=== PATIENT | female | born 1940 | race Caucasian/White ===

== ENCOUNTER 2016-04-17 17:07 | Emergency (ER) | payer OTHER ==
[2016-04-17] VITALS (8 sets, daily range): BP systolic 143–165; BP diastolic 73–87; PULSE 90–104; RESP 20–22; TEMP 98.3–99.4; O2SAT 95–97
[~2016-04-17] VITALS: Ht 165.1 cm; Wt 68.7 kg
[~2016-04-17 17:07] MED LIST: ADVA250A INH; AMIT25TA20 PO; GABA800T PO; SYMB160A INH; THEO200T11 PO
[2016-04-17] MEDS ORDERED: SYMB160A INH (17:46)
[2016-04-17] MEDS ORDERED: PRED20 PO (17:46)
[2016-04-17] MEDS ORDERED: AMOX500T PO (17:46)
[2016-04-17] MEDS ORDERED: [UNRECOGNIZED DRUG - OTHER] (17:46)
[2016-04-17] MEDS ORDERED: THEO400T2 PO (17:46)
[2016-04-17] MEDS ORDERED: ADVA100A INH (17:46)
--- NOTE | 2016-04-17 17:59 | PD ---
HPI Chief Complaint: Respiratory Symptoms Time Seen by Provider: 17:36 Travel History International Travel<30 days: No Contact w/Intl Traveler<30days: No Traveled to known affect area: No History of Present Illness HPI Patient 75-year-old female with a history of COPD not on oxygen at home presents to emergency department for cough and congestion for the past 2-3 weeks. Patient states that she went to her primary care physician was placed on Levaquin as well as steroids patient and using her nebulizers at home. She states that it provides some relief but she is still having significant cough and shortness of breath. Patient requests oxygen while in the emergency department and states that she has tried to get oxygen at home before but states she doesn't qualify. Patient states she called her primary care physician and told to come the emergency department. Denies any fever denies any productive cough denies any chest pain abdominal pain nausea vomiting diarrhea. PFSH Past Medical History Asthma: Yes Autoimmune Disease: No Anxiety: Yes Cancer: Yes (RIGHT FOOT) Cardiovascular Problems: Yes (dyslipidemia) High Cholesterol: Yes Chemotherapy: No COPD: Yes Diminished Hearing: No Endocrine: Yes Gastrointestinal Disorders: Yes (HX OF CONSTIPATION, TAKES MIRALAX EVERY OTHER DAY) Genitourinary: Yes ([employer] BLADDER SURGERY) Headaches: Yes Immune Disorder: No Implanted Vascular Access Dvce: No Kidney Stones: Yes (2006) Musculoskeletal: Yes Neurologic: Yes Psychiatric: Yes Reproductive: No Respiratory: Yes Immunizations Current: Yes Radiation Therapy: No Thyroid Disease: Yes Influenza Vaccination: No ?: Not Menopausal: Yes Past Surgical History Endocrine Surgery: Yes (parathyroid surgery) Genitourinary Surgery: Yes (KIDNEY STONES REMOVED 2006) Gynecologic Surgery: Yes ( BLADDER LIFT) Hysterectomy: Yes (COMPLETE) Pacemaker: No Other Surgery: Yes (PARATHYROID SURGERY) Social History Alcohol Use: No Tobacco Use: No Substance Use: No Allergies-Medications (Allergen,Severity, Reaction): Coded Allergies: Contrast Media (Verified Allergy, Unknown, Shortness of Breath, 04/17/16) Uncoded Allergies: unknown antibiotic (Allergy, Severe, Hypotension, 03/18/09) felt like passing out Reported Meds & Prescriptions Reported Meds & Active Scripts Active Proventil Hfa 6.7 GM Inh (Albuterol Sulfate) 90 Mcg/Act Aer 1 Puff INH Q4H PRN Hydrocodone/Homatropine 5-1.5 mg/5Ml (Hydrocodone W/ Homatropine) 1 Syp Syp 5 Ml PO BID PRN Reported [Nebulizer Treatments] Amoxicillin 500 Mg Tab 500 Mg PO BID Prednisone 20 Mg Tab 40 Mg PO DAILY Theophylline ER 24 HR (Theophylline) 400 Mg Tab 400 Mg PO DAILY Symbicort Inh (Budesonide/Formoterol Fumarate) 160-4.5 Mcg/Act Aero 2 Puff INH Q12HR Advair Diskus Inh (Fluticasone-Salmeterol Inh) 100-50 Mcg/Blist Aer 1 Puff INH BID Rinse mouth after use. Review of Systems Except as stated in HPI: all other systems reviewed are Neg Physical Exam Narrative GENERAL: Well-developed well-nourished no apparent distress SKIN: Warm and dry. HEAD: Atraumatic. Normocephalic. EYES: Pupils equal and round. No scleral icterus. No injection or drainage. ENT: No nasal bleeding or discharge. Mucous membranes pink and moist. NECK: Trachea midline. No JVD. CARDIOVASCULAR: Regular rate and rhythm. No murmur appreciated. RESPIRATORY: No accessory muscle use. Expiratory and expiratory wheezes and rhonchi. Breath sounds equal bilaterally. Good air entry bilaterally, patient has significant kyphosis. Minimally tachypneic but speaking in full sentences. GASTROINTESTINAL: Abdomen soft, non-tender, nondistended. Hepatic and splenic margins not palpable. MUSCULOSKELETAL: No obvious deformities. No clubbing. No cyanosis. No edema. NEUROLOGICAL: Awake and alert. No obvious cranial nerve deficits. Motor grossly within normal limits. Normal speech. PSYCHIATRIC: Appropriate mood and affect; insight and judgment normal. Data Data Last Documented VS Vital Signs Date Time Temp Pulse Resp B/P Pulse Ox O2 Delivery O2 Flow Rate FiO2 04/17/16 19:51 92 20 97 04/17/16 19:36 143/78 Room Air 04/17/16 17:51 98.3 Orders Electrocardiogram (04/17/16 18:01) Complete Blood Count With Diff (04/17/16 18:01) Comprehensive Metabolic Panel (04/17/16 18:01) Magnesium (Mg) (04/17/16 18:01) Prothrombin Time / Inr (Pt) (04/17/16 18:01) Act Partial Throm Time (Ptt) (04/17/16 18:01) Troponin I (04/17/16 18:01) Ecg Monitoring (04/17/16 18:01) Bilateral Bp Monitoring (04/17/16 18:01) Iv Access Insert/Monitor (04/17/16 18:01) Oximetry (04/17/16 18:01) Oxygen Administration (04/17/16 18:01) Sodium Chloride 0.9% Flush (Ns Flush) (04/17/16 18:15) Chest, Pa & Lat (04/17/16 18:01) Albuterol-Ipratropium Neb (Duoneb Neb) (04/17/16 18:15) Labs Laboratory Tests Test 04/17/16 18:05 White Blood Count 8.6 TH/MM3 Red Blood Count 4.38 MIL/MM3 Hemoglobin 12.5 GM/DL Hematocrit 36.3 % Mean Corpuscular Volume 83.0 FL Mean Corpuscular Hemoglobin 28.5 PG Mean Corpuscular Hemoglobin 34.4 % Concent Red Cell Distribution Width 14.3 % Platelet Count 219 TH/MM3 Mean Platelet Volume 8.4 FL Neutrophils (%) (Auto) 88.3 % Lymphocytes (%) (Auto) 7.7 % Monocytes (%) (Auto) 3.8 % Eosinophils (%) (Auto) 0.1 % Basophils (%) (Auto) 0.1 % Neutrophils # (Auto) 7.6 TH/MM3 Lymphocytes # (Auto) 0.7 TH/MM3 Monocytes # (Auto) 0.3 TH/MM3 Eosinophils # (Auto) 0.0 TH/MM3 Basophils # (Auto) 0.0 TH/MM3 CBC Comment DIFF FINAL Differential Comment Prothrombin Time 10.0 SEC Prothromb Time International 0.9 RATIO Ratio Activated Partial 25.4 SEC Thromboplast Time Sodium Level 144 MEQ/L Potassium Level 4.2 MEQ/L Chloride Level 108 MEQ/L Carbon Dioxide Level 28.0 MEQ/L Anion Gap 8 MEQ/L Blood Urea Nitrogen 13 MG/DL Creatinine 0.72 MG/DL Estimat Glomerular Filtration 79 ML/MIN Rate Random Glucose 142 MG/DL Calcium Level 8.5 MG/DL Magnesium Level 2.1 MG/DL Total Bilirubin 0.2 MG/DL Aspartate Amino Transf 9 U/L (AST/SGOT) Alanine Aminotransferase 16 U/L (ALT/SGPT) Alkaline Phosphatase 68 U/L Troponin I LESS THAN 0.02 NG/ML Total Protein 6.8 GM/DL Albumin 3.2 GM/DL [facility] Medical Decision Making Medical Screen Exam Complete: Yes Emergency Medical Condition: Yes Interpretation(s) EKG shows normal sinus rhythm at a rate of 88 normal axis and normal R-wave progression. No concerning ST T changes intervals within normal limits. This normal EKG. Differential Diagnosis ACS unlikely, CT unlikely, bronchitis, pneumonia, COPD, CHF unlikely. Narrative Course Patient was remembers [place], she was given DuoNeb treatments in the ER. Chest x -ray shows significant COPD changes without acute infiltrate or effusion. Labs are reassuring. Patient feeling better after DuoNeb treatments. Discussed with patient her likely diagnosis of bronchitis and could consider a prolonged course for her. She is maintain saturations greater than 96% on room air while in the emergency department. No indication further workup or admission at this time. Discussed with her return to ED criteria follow-up with a primary care physician. She is provided a refill for her Proventil inhaler. Diagnosis Primary Impression: Bronchitis Scripts Albuterol 6.7 GM Inh (Proventil Hfa 6.7 GM Inh)90 Mcg/Act Aer1 Puff INH Q4H PRN (SHORTNESS OF BREATH) #1 INHALER Ref 0 Prov:Leighton Hunt MD 04/17/16 Hydrocodone W/ Homatropine (Hydrocodone/Homatropine 5-1.5 mg/5Ml)1 Syp Syp5 Ml PO BID PRN (COUGH) #100 ML Ref 0 Prov:Leighton Hunt MD 04/17/16 Disposition: 01 DISCHARGE HOME Condition: Stable Leighton Hunt MD Apr 17, 2016 17:59
[2016-04-17] MEDS ORDERED: SODIUM CHLORIDE 0.9% FLUSH 5 ML FLUSH IVF PRN (18:15)
[2016-04-17] MEDS ORDERED: RESP: ALBUTEROL 2.5 MG/IPRATROPIUM 0.5 MG NEB (SCH) NEB ONE (18:15)
[2016-04-17 18:16] LABS: AUTOMATED NEUTROPHIL # 7.6 TH/MM3 (1.8-7.7); BASOPHIL % 0.1 % (0.0-2.0); EOSINOPHIL % 0.1 % (0.0-4.0); HEMATOCRIT 36.3 % (35.0-46.0); HEMO FLAGS DIFF FINAL; LYMPH % 7.7 % (9.0-44.0); LYMPHOCYTE # 0.7 TH/MM3 (1.0-4.8); MEAN CORPUSCULAR HEMOGLOBIN 28.5 PG (27.0-34.0); MEAN CORPUSCULAR HGB CONC 34.4 % (32.0-36.0); MONO % 3.8 % (0.0-8.0); NEUT % 88.3 % (16.0-70.0); PLATELET COUNT 219 TH/MM3 (150-450); RED BLOOD COUNT 4.38 MIL/MM3 (4.00-5.30); RED CELL DISTRIBUTION WIDTH 14.3 % (11.6-17.2); WHITE BLOOD COUNT 8.6 TH/MM3 (4.0-11.0)
[2016-04-17 18:29] LABS: CHLORIDE 108 MEQ/L (98-107); POTASSIUM 4.2 MEQ/L (3.5-5.1); SODIUM (NA) 144 MEQ/L (136-145)
[2016-04-17 18:32] LABS: ANION GAP 8 MEQ/L (5-15)
[2016-04-17 18:33] LABS: BLOOD UREA NITROGEN 13 MG/DL (7-18); MAGNESIUM 2.1 MG/DL (1.5-2.5)
[2016-04-17 18:35] LABS: ALT (GPT) 16 U/L (10-53)
[2016-04-17 18:36] LABS: AST (GOT) 9 U/L (15-37); GLOMERULAR FILTRATION RATE 79 ML/MIN (>89)
[2016-04-17 18:37] LABS: TOTAL BILIRUBIN ADULT 0.2 MG/DL (0.2-1.0)
[2016-04-17 18:38] LABS: ALKALINE PHOSPHATASE 68 U/L (45-117); APTT (PATIENT) 25.4 SEC (24.3-30.1); INTERNATIONAL NORMALIZED RATIO 0.9 RATIO
--- NOTE | 2016-04-17 18:53 | RADHPO ---
EXAM DATE/TIME: 04/17/2016 18:36 [facility] COMPARISON: CHEST SINGLE AP, November 17, 2013, 9:37. INDICATIONS : Chest pain MEDICAL HISTORY : Renal calculi. Asthma SURGICAL HISTORY : Parathyriod ENCOUNTER: Initial ACUITY: 1 day PAIN SCORE: 5/10 LOCATION: Bilateral chest FINDINGS: PA and lateral views of the chest demonstrate the lungs to be symmetrically aerated without evidence of mass, infiltrate or effusion mild streaky scarring or atelectasis is noted in the perihilar region s. The cardiomediastinal contours are unremarkable. There is a mild scoliosis. There is diffuse oste openia. There is a mild to moderate compression fracture deformity in the upper to mid thoracic spine . There are multiple surgical clips in the thoracic inlet. CONCLUSION: 1. Mild atelectasis and/or scarring. 2. No acute cardiac pulmonary disease. William Becker MD on April 17, 2016 at 18:50 Board Certified Radiologist. This report was verified electronically.
[2016-04-17] MEDS ORDERED: HYDR5SYP10 PO (19:29)
[2016-04-17] MEDS ORDERED: ALBU6.7H INH (19:29)
--- NOTE | 2016-04-18 14:06 | EKG ---
Date Performed: 04/17/2016 Time Performed: 18:03:58 PTAGE: 75 years EKG: Sinus rhythm Since previous tracing, no significant change noted Normal ECG PREVIOUS TRACING : 11/17/2013 09.04 DOCTOR: Bipin Contreras Interpretating Date/Time 04/18/2016 13:59:43
== END 2016-04-17 19:52 | disposition home or self-care (01) ==
LOC: PHED 17:07
DX: J40 Bronchitis, not specified as acute or chronic (principal); J44.9 Chronic obstructive pulmonary disease, unspecified; E78.00 Pure hypercholesterolemia, unspecified; Z87.442 Personal history of urinary calculi; R51 Headache
CPT/HCPCS: 71020; 80053; 83735; 84484; 85025; 85610; 85730; 93005; 94640; 94664

== ENCOUNTER 2016-08-03 17:22 | Inpatient (IN) | payer OTHER, MEDICARE ==
[~2016-08-03] VITALS: Ht 165.1 cm; Wt 70.1 kg
[~2016-08-03 17:22] MED LIST changes: +ADVA100A INH; -ADVA250A INH; +ALBU6.7H INH; -AMIT25TA20 PO; +AMOX500T PO; -GABA800T PO; +HYDR5SYP10 PO; +PRED20 PO; -THEO200T11 PO; +THEO400T2 PO; +[UNRECOGNIZED DRUG - OTHER]
[2016-08-03 17:36] VITALS: BP 142/83; PULSE 86; RESP 16; TEMP 98.2; O2SAT 96
[2016-08-03] MEDS ORDERED: TRAM50TA PO (17:51)
[2016-08-03] MEDS ORDERED: HYDR-3535 PO (17:51)
[2016-08-03 17:58] VITALS: O2SAT 100
--- NOTE | 2016-08-03 17:59 | PD ---
HPI Chief Complaint: Respiratory Symptoms Time Seen by Provider: 17:48 Travel History International Travel<30 days: No Contact w/Intl Traveler<30days: No Traveled to known affect area: No History of Present Illness HPI 75-year-old female complains of coughing and wheezing and shortness of breath. Patient has history of asthma. Patient states that she started having coughing congestion 9 days ago and got progressively worse since then. Patient contacted her physician 3 days ago and was given a Z-Dilip. Patient has been using nebulizer machine at home without success. Patient states that she got progressive shortness of breath despite the medication and nebulizer treatment. Patient denies any headache. Patient denies any fever chills. Patient denies any chest pain. Patient denies abdominal pain. PFSH Past Medical History Asthma: Yes Autoimmune Disease: No Anxiety: Yes Cancer: Yes (RIGHT FOOT) Cardiovascular Problems: Yes (dyslipidemia) High Cholesterol: Yes Chemotherapy: No COPD: Yes Diminished Hearing: No Endocrine: Yes Gastrointestinal Disorders: Yes (HX OF CONSTIPATION, TAKES MIRALAX EVERY OTHER DAY) Genitourinary: Yes ([employer]ESS [employer] BLADDER SURGERY) Headaches: Yes Immune Disorder: No Implanted Vascular Access Dvce: No Kidney Stones: Yes (2006) Musculoskeletal: Yes Neurologic: Yes Psychiatric: Yes Reproductive: No Respiratory: Yes Immunizations Current: Yes Radiation Therapy: No Thyroid Disease: Yes ?: Not Menopausal: Yes Past Surgical History Endocrine Surgery: Yes (parathyroid surgery) Genitourinary Surgery: Yes (KIDNEY STONES REMOVED 2006) Gynecologic Surgery: Yes ( BLADDER LIFT) Hysterectomy: Yes Pacemaker: No Other Surgery: Yes (PARATHYROID SURGERY) Social History Alcohol Use: No Tobacco Use: No Substance Use: No Allergies-Medications (Allergen,Severity, Reaction): Coded Allergies: Contrast Media (Verified Allergy, Unknown, Shortness of Breath, 08/03/16) Reported Meds & Prescriptions Reported Meds & Active Scripts Active Proventil Hfa 6.7 GM Inh (Albuterol Sulfate) 90 Mcg/Act Aer 1 Puff INH Q4H PRN Reported Lortab (Hydrocodone-Acetaminophen) 10-325 Mg Tab 1 Tab PO DAILY Tramadol (Tramadol HCl) 50 Mg Tab 50 Mg PO Q6H [Nebulizer Treatments] Prednisone 20 Mg Tab 40 Mg PO DAILY Advair Diskus Inh (Fluticasone-Salmeterol Inh) 100-50 Mcg/Blist Aer 1 Puff INH BID Rinse mouth after use. Review of Systems General / Constitutional: No: Fever Eyes: No: Visual changes HENT: No: Headaches Cardiovascular: No: Chest Pain or Discomfort Respiratory: Positive: Cough, Shortness of Breath, Wheezing Gastrointestinal: No: Abdominal Pain Genitourinary: No: Dysuria Musculoskeletal: No: Pain Skin: No Rash Neurologic: No: Weakness Psychiatric: No: Depression Endocrine: No: Polydipsia Hematologic/Lymphatic: No: Easy Bruising Physical Exam Narrative GENERAL: Well-nourished, well-developed patient. SKIN: Focused skin assessment warm/dry. HEAD: Normocephalic. EYES: No scleral icterus. No injection or drainage. NECK: Supple, trachea midline. No JVD or lymphadenopathy. CARDIOVASCULAR: Regular rate and rhythm without murmurs, gallops, or rubs. RESPIRATORY: Breath sounds equal bilaterally. No accessory muscle use. Patient has moderate expiratory wheezes bilaterally. Rhonchi at the bases bilaterally. GASTROINTESTINAL: Abdomen soft, non-tender, nondistended. MUSCULOSKELETAL: No cyanosis, or edema. BACK: Nontender without obvious deformity. No CVA tenderness. Neurologic exam normal. Data Data Last Documented VS Vital Signs Date Time Temp Pulse Resp B/P Pulse Ox O2 Delivery O2 Flow Rate FiO2 08/03/16 19:05 127 20 96 Room Air 08/03/16 19:05 172/85 08/03/16 17:36 98.2 Orders Iv Access Insert/Monitor (08/03/16 17:52) Ecg Monitoring (08/03/16 17:52) Oximetry (08/03/16 17:52) Methylprednisolone So Succ Inj (Solumedr (08/03/16 18:00) Albuterol-Ipratropium Neb (Duoneb Neb) (08/03/16 18:00) Chest, Single Ap (08/03/16 17:52) Complete Blood Count With Diff (08/03/16 19:45) Comprehensive Metabolic Panel (08/03/16 19:45) Prothrombin Time / Inr (Pt) (08/03/16 19:45) Act Partial Throm Time (Ptt) (08/03/16 19:45) Urinalysis - C+S If Indicated (08/03/16 19:45) Influenzae A/B Antigen (08/03/16 19:45) Sodium Chlor 0.9% 1000 Ml Inj (Ns 1000 M (08/03/16 19:45) Benzonatate (Tessalon) (08/03/16 20:00) MDM Medical Decision Making Medical Screen Exam Complete: Yes Emergency Medical Condition: Yes Interpretation(s) 1823 PM. Chest x-ray shows no acute cardiopulmonary disease. Differential Diagnosis Differential diagnosis including acute exacerbation asthma, bronchitis, pneumonia, PE, pneumothorax. Narrative Course 75-year-old female with coughing congestion and wheezing and shortness of breath. History of asthma. Albuterol with Atrovent unit dose treatment 3. Solu-Medrol 125 mg IV. 1950 p.m. Reexamination patient has moderate amount of wheezes and still short of breath. Patient will be admitted for treatment. Diagnosis Primary Impression: Acute asthma exacerbation Qualified Code: J45.41 - Moderate persistent asthma with acute exacerbation Admitting Information Admitting Physician Requests: Admit Geo Delgado MD Aug 03, 2016 17:59
[2016-08-03] MEDS ORDERED: methylPREDNISolone SOD SUCC 125 MG/2 ML VIAL IVP ONE (18:00)
[2016-08-03] MEDS: RESP: ALBUTEROL 2.5 MG/IPRATROPIUM 0.5 MG NEB (SCH) INH ×2 (18:01→18:05)
--- NOTE | 2016-08-03 18:17 | RADHPO ---
EXAM DATE/TIME: 08/03/2016 18:01 [facility] COMPARISON: CHEST PA & LAT, April 17, 2016, 18:36. INDICATIONS : Shortness of breath 4 days. MEDICAL HISTORY : Chronic obstructive pulmonary disease. Osteoporosis. Asthma. Dyslipidemia. Renal disease. SURGICAL HISTORY : Hysterectomy. ENCOUNTER: Initial ACUITY: 4 - 6 days PAIN SCORE: 0/10 LOCATION: Bilateral chest FINDINGS: Slight cardiomegaly has not changed. Minimal linear scar is seen in both lung bases. CONCLUSION: No acute cardiopulmonary disease. Юлия Munguia MD on August 03, 2016 at 18:15 Board Certified Radiologist. This report was verified electronically.
[2016-08-03 19:05] VITALS: BP 172/85; PULSE 127; RESP 20; O2SAT 96
[2016-08-03] MEDS ORDERED: SODIUM CHLOR 0.9% 1000 ML INJ 1,000 ML IV SCH (19:45)
[2016-08-03] MEDS ORDERED: CEFEPIME INJ 1,000 MG in SODIUM CHLORIDE 0.9% INJ 100 ML IV ONE (20:00)
[2016-08-03] MEDS ORDERED: DOXYCYCLINE INJ 100 MG in SODIUM CHLORIDE 0.9% INJ 100 ML IV ONE (20:00)
[2016-08-03] MEDS ORDERED: BENZONATATE 100 MG CAP PO ONE (20:00)
[2016-08-03] MEDS ORDERED: NALOXONE HCL 0.4 MG/ML AMP IV PRN (20:15)
[2016-08-03] MEDS ORDERED: SODIUM CHLORIDE 0.9% FLUSH 10 ML FLUSH IV FLUSH PRN (20:15)
[2016-08-03 20:33] LABS: AUTOMATED NEUTROPHIL # 1.7 TH/MM3 (1.8-7.7); BASOPHIL % 0.6 % (0.0-2.0); EOSINOPHIL % 0.1 % (0.0-4.0); HEMATOCRIT 36.4 % (35.0-46.0); HEMO FLAGS DIFF FINAL; LYMPH % 26.5 % (9.0-44.0); LYMPHOCYTE # 0.7 TH/MM3 (1.0-4.8); MEAN CELL VOLUME 84.2 FL (80.0-100.0); MEAN CORPUSCULAR HEMOGLOBIN 27.9 PG (27.0-34.0); MEAN CORPUSCULAR HGB CONC 33.1 % (32.0-36.0); MONO % 10.9 % (0.0-8.0); NEUT % 61.9 % (16.0-70.0); PLATELET COUNT 161 TH/MM3 (150-450); RED BLOOD COUNT 4.33 MIL/MM3 (4.00-5.30); RED CELL DISTRIBUTION WIDTH 13.7 % (11.6-17.2); WHITE BLOOD COUNT 2.7 TH/MM3 (4.0-11.0)
[2016-08-03 20:41] LABS: CHLORIDE 104 MEQ/L (98-107); POTASSIUM 4.1 MEQ/L (3.5-5.1); SODIUM (NA) 142 MEQ/L (136-145)
[2016-08-03 20:44] LABS: ANION GAP 9 MEQ/L (5-15); BICARBONATE 28.9 MEQ/L (21.0-32.0); BLOOD UREA NITROGEN 11 MG/DL (7-18)
[2016-08-03 20:46] LABS: APTT (PATIENT) 28.5 SEC (24.3-30.1); INTERNATIONAL NORMALIZED RATIO 0.9 RATIO; PROTHROMBIN TIME - PATIENT 9.9 SEC (9.8-11.6)
[2016-08-03 20:48] LABS: ALT (GPT) 23 U/L (10-53); AST (GOT) 24 U/L (15-37); GLOMERULAR FILTRATION RATE 101 ML/MIN (>89)
[2016-08-03 20:49] LABS: TOTAL BILIRUBIN ADULT 0.3 MG/DL (0.2-1.0)
[2016-08-03 20:50] LABS: ALKALINE PHOSPHATASE 64 U/L (45-117)
[2016-08-03 21:30] LABS: BLOOD, URINE NEG (NEG); GLUCOSE,URINE NEG (NEG); KETONE, URINE TRACE mg/dL (NEG); NITRITE,URINE NEG (NEG)
[2016-08-03] MEDS: SODIUM CHLORIDE 0.9% FLUSH 10 ML FLUSH IV FLUSH SCH (21:30)
[2016-08-03 21:45] VITALS: BP 137/76; PULSE 102; RESP 20; O2SAT 98
[2016-08-03 21:46] VITALS: O2SAT 95
[2016-08-03] MEDS: RESP: ALBUTEROL 2.5 MG/IPRATROPIUM 0.5 MG NEB (SCH) NEB (21:46)
[2016-08-03 21:48] LABS: SQUAMOUS EPITHELIAL CELL URINE 0-5 /hpf (0-5); URINE COLOR YELLOW (YELLW/STRAW)
[2016-08-03 21:49] LABS: COMMENT (UR) CULT NOT INDICATED; CULTURE IF INDICATED CULT NOT INDICATED; WBC, URINE 0-2 /hpf (0-5)
[2016-08-03 22:06] VITALS: BP 164/96; PULSE 128; RESP 18; TEMP 97.5; O2SAT 96
[2016-08-03] MEDS ORDERED: MELATONIN 5 MG TAB PO ONE (23:00)
[2016-08-03] MEDS: methylPREDNISolone SOD SUCC 40 MG/1 ML VIAL IV PUSH SCH (23:41)
[2016-08-03] MEDS: traMADol HCL 50 MG TAB PO PRN (23:41)
[2016-08-04] VITALS (9 sets, daily range): BP systolic 145–163; BP diastolic 79–90; PULSE 96–103; RESP 20–24; TEMP 96.9–98.2; O2SAT 91–98
[2016-08-04] MEDS: RESP: ALBUTEROL 2.5 MG/IPRATROPIUM 0.5 MG NEB (PRN) NEB ×2 (01:06→10:51)
[2016-08-04] MEDS: MENTHOL LOZENGE BUCCAL PRN ×2 (01:46→07:02)
[2016-08-04] MEDS: RESP: ALBUTEROL 2.5 MG/IPRATROPIUM 0.5 MG NEB (SCH) NEB ×4 (04:02→19:47)
[2016-08-04] MEDS: methylPREDNISolone SOD SUCC 40 MG/1 ML VIAL IV PUSH SCH ×3 (05:15→21:39)
[2016-08-04 06:42] LABS: AUTOMATED NEUTROPHIL # 3.3 TH/MM3 (1.8-7.7); BASOPHIL % 0.1 % (0.0-2.0); EOSINOPHIL % 0.6 % (0.0-4.0); HEMATOCRIT 35.3 % (35.0-46.0); HEMO FLAGS DIFF FINAL; LYMPH % 11.3 % (9.0-44.0); LYMPHOCYTE # 0.4 TH/MM3 (1.0-4.8); MEAN CELL VOLUME 85.5 FL (80.0-100.0); MEAN CORPUSCULAR HGB CONC 32.8 % (32.0-36.0); MONO % 3.8 % (0.0-8.0); NEUT % 84.2 % (16.0-70.0); PLATELET COUNT 148 TH/MM3 (150-450); RED BLOOD COUNT 4.13 MIL/MM3 (4.00-5.30); WHITE BLOOD COUNT 3.8 TH/MM3 (4.0-11.0)
[2016-08-04 06:49] LABS: POTASSIUM 3.5 MEQ/L (3.5-5.1)
[2016-08-04] MEDS: traMADol HCL 50 MG TAB PO PRN ×2 (07:02→14:34)
[2016-08-04] MEDS: BUDESONIDE-FORMOTEROL 160/4.5 MCG INHALER INH SCH ×2 (10:15→20:21)
--- NOTE | 2016-08-04 10:24 | HHI.HP ---
[facility] Service [facility] Primary Care Physician Pilo Alarcon MD Admission Diagnosis acute exacerbation asthma Diagnoses: (1) COPD with exacerbation (2) Acute asthma exacerbation (3) Influenza B (4) Leukopenia Chief Complaint: Shortness of breath and greenish sputum production Travel History International Travel<30 Days: No Contact w/Intl Traveler <30 Da: No Traveled to Known Affected Are: No History of Present Illness 75-year-old female with a history of asthma/COPD presented to the ED for evaluation of worsening symptoms of shortness of breath, cough production along with severe symptoms of chest congestion times several days duration. Patient was diagnosed last week 07/25/16 with upper respiratory infection however not therapy was initiated at a time. Patient reported improvement of symptoms but the following week on Sunday07/27/16 severely short of breath with significant cough production but no febrile episode. She was started on Z-Dilip which patient completed without any significant improvement. She also denies any improvement of her shortness of breath with nebulizer treatment as well as prescribed steroid by her medical billing supervisor. Review of Systems Other 12 systems reviewed and are negative except for the ones mentioned in the history of present illness Past Family Social History Past Medical History Asthma: Yes Anxiety: Yes Cancer: Yes (RIGHT FOOT) dyslipidemia COPD: Yes Kidney Stones: Yes (2006) Thyroid Disease: Yes Past Surgical History Genitourinary Surgery: Yes (KIDNEY STONES REMOVED 2006) Gynecologic Surgery: Yes ( BLADDER LIFT) Hysterectomy: Yes Other Surgery: Yes (PARATHYROID SURGERY) Reported Medications Proventil Hfa 6.7 GM Inh (Albuterol Sulfate) 90 Mcg/Act Aer 1 Puff INH Q4H PRN Lortab (Hydrocodone-Acetaminophen) 10-325 Mg Tab 1 Tab PO DAILY Tramadol (Tramadol HCl) 50 Mg Tab 50 Mg PO Q6H [Nebulizer Treatments] Prednisone 20 Mg Tab 40 Mg PO DAILY Advair Diskus Inh (Fluticasone-Salmeterol Inh) 100-50 Mcg/Blist Aer 1 Puff INH BID Rinse mouth after use. Allergies: Coded Allergies: Contrast Media (Verified Allergy, Unknown, Shortness of Breath, 08/03/16) Family History Her Mother had Diabetes Father had Asthma Brother from complication of Lung Cancer Social History Alcohol Use: No Tobacco Use: No Substance Use: No Physical Exam Vital Signs Vital Signs Date Time Temp Pulse Resp B/P Pulse Ox O2 Delivery O2 Flow Rate FiO2 08/04/16 08:00 97.7 102 22 157/81 97 08/04/16 07:24 98 Nasal Cannula 2.00 08/04/16 04:00 98.0 103 22 155/83 96 08/04/16 00:00 97.8 102 20 153/85 91 08/03/16 22:06 97.5 128 18 164/96 96 08/03/16 21:46 95 Nasal Cannula 2.00 08/03/16 21:45 102 20 137/76 98 Nasal Cannula 2 08/03/16 19:05 127 20 96 Room Air 08/03/16 19:05 127 20 172/85 96 Room Air 08/03/16 17:58 100 Room Air 08/03/16 17:57 68 16 100 Room Air 08/03/16 17:36 98.2 86 16 142/83 96 Physical Exam GENERAL: This is a well-nourished, well-developed patient, in no apparent distress. SKIN: No rashes, ecchymoses or lesions. Cool and dry. HEAD: Atraumatic. Normocephalic. No temporal or scalp tenderness. EYES: Pupils equal round and reactive. Extraocular motions intact. No scleral icterus. No injection or drainage. ENT: Nose without bleeding, purulent drainage or septal hematoma. Throat without erythema, tonsillar hypertrophy or exudate. Uvula midline. Airway patent. NECK: Trachea midline. No JVD or lymphadenopathy. Supple, nontender, no meningeal signs. CARDIOVASCULAR: Regular rate and rhythm without murmurs, gallops, or rubs. RESPIRATORY: Clear to auscultation. Breath sounds decreased bilaterally. Positive for inspiratory/expiratory wheezes GASTROINTESTINAL: Abdomen soft, non-tender, nondistended. No hepato-splenomegaly , or palpable masses. No guarding. MUSCULOSKELETAL: Extremities without clubbing, cyanosis, or edema. No joint tenderness, effusion, or edema noted. No calf tenderness. Negative Homans sign bilaterally. NEUROLOGICAL: Awake and alert. Cranial nerves II through XII intact. Motor and sensory grossly within normal limits. Five out of 5 muscle strength in all muscle groups. Normal speech. Laboratory Laboratory Tests Test 08/03/16 08/03/16 08/04/16 20:20 21:25 06:10 White Blood Count 2.7 3.8 Red Blood Count 4.33 4.13 Hemoglobin 12.1 11.6 Hematocrit 36.4 35.3 Mean Corpuscular Volume 84.2 85.5 Mean Corpuscular Hemoglobin 27.9 28.0 Mean Corpuscular Hemoglobin 33.1 32.8 Concent Red Cell Distribution Width 13.7 14.0 Platelet Count 161 148 Mean Platelet Volume 8.9 8.7 Neutrophils (%) (Auto) 61.9 84.2 Lymphocytes (%) (Auto) 26.5 11.3 Monocytes (%) (Auto) 10.9 3.8 Eosinophils (%) (Auto) 0.1 0.6 Basophils (%) (Auto) 0.6 0.1 Neutrophils # (Auto) 1.7 3.3 Lymphocytes # (Auto) 0.7 0.4 Monocytes # (Auto) 0.3 0.1 Eosinophils # (Auto) 0.0 0.0 Basophils # (Auto) 0.0 0.0 CBC Comment DIFF FINAL DIFF FINAL Differential Comment Prothrombin Time 9.9 Prothromb Time International 0.9 Ratio Activated Partial 28.5 Thromboplast Time Sodium Level 142 144 Potassium Level 4.1 3.5 Chloride Level 104 108 Carbon Dioxide Level 28.9 27.0 Anion Gap 9 9 Blood Urea Nitrogen 11 11 Creatinine 0.58 0.46 Estimat Glomerular Filtration 101 132 Rate Random Glucose 121 158 Calcium Level 8.5 8.1 Total Bilirubin 0.3 Aspartate Amino Transf 24 (AST/SGOT) Alanine Aminotransferase 23 (ALT/SGPT) Alkaline Phosphatase 64 Total Protein 6.8 Albumin 3.2 Urine Color YELLOW Urine Turbidity CLEAR Urine pH 6.0 Urine Specific [place] 1.010 Urine Protein NEG Urine Glucose (UA) NEG Urine Ketones TRACE Urine Occult Blood NEG Urine Nitrite NEG Urine Bilirubin NEG Urine Leukocyte Esterase NEG Urine WBC 0-2 Urine Squamous Epithelial 0-5 Cells Urine Transitional Epithelial Cells Microscopic Urinalysis Comment CULT NOT INDICATED Date/Time Procedure Status Source Growth 08/03/16 20:20 Influenza Types A,B Antigen ([facility]) - Final Complete Nasal Washing Positive For Flu B Antigen Result Diagram: 08/04/16 0610 08/04/16 0610 Imaging Last Impressions Chest X-Ray 08/03/16 2350 Signed Impressions: Service Date/Time: July 18:01 - CONCLUSION: No acute cardiopulmonary disease. Юлия Munguia MD Assessment and Plan Problem List: (1) COPD with exacerbation ICD Code: J44.1 Status: Acute (2) Acute asthma exacerbation ICD Code: J45.901 Status: Acute (3) Influenza B ICD Code: J10.1 Status: Acute (4) Leukopenia ICD Code: D72.819 Status: Acute Assessment and Plan 75-year-old female with COPD with exacerbation Asthma with exacerbation Influenza B Chest x-ray noted and reviewed by me with No acute cardiopulmonary disease Started post cefepime and and doxy 1 in ED Start Levaquin, Symbicort, Spiriva, Mucinex, Duo Neb Scheduled + PRN Start Tamiflu 5 days Continue with Solu-Medrol 40 mg IV however Q8H and maintain oxygen saturation above 92% Check ABGs Leukopenia Likely secondary to above COPD/asthma exacerbation versus steroid use Continue to monitor CBC IFG Maybe secondary to steroid, check A1c and treat accordingly DVT prophylaxis: Bilateral SCDs Code Status Full code Discussed Condition With Patient Physician Certification 2 Midnight Certification Type: Admission for Inpatient Services Order for Inpatient Services The services are ordered in accordance with Medicare regulations or non- Medicare payer requirements, as applicable. In the case of services not specified as inpatient-only, they are appropriately provided as inpatient services in accordance with the 2-midnight benchmark. Estimated LOS (days): 2 days is the estimated time the patient will need to remain in the hospital, assuming treatment plan goals are met and no additional complications. Post-Hospital Plan: Not yet determined Problem Qualifiers (1) Acute asthma exacerbation: Qualified Code: J45.41 - Moderate persistent asthma with acute exacerbation Yves Bauer MD Aug 04, 2016 10:24
[2016-08-04 10:55] LABS: BLOOD GAS BASE EXCESS 0.3 mmol/L (-2-2); BLOOD GAS CARBOXYHEMOGLOBIN 1.2 % (0-4); BLOOD GAS HCO3 24 mmol/L (22-26); BLOOD GAS METHEMOGLOBIN 1.1 % (0-2); BLOOD GAS O2 HGB SATURATION 92 % (90-100); BLOOD GAS OXYGEN CONTENT 15.3 Vol % (12.0-20.0); BLOOD GAS PCO2 35 mmHG (38-42); BLOOD GAS PO2 70 mmHG (61-120); BLOOD GAS TOTAL HGB 11.8 G/DL (12.0-16.0); TEMP CORR TO 98.6
[2016-08-04 10:56] LABS: CRITICAL VALUE NO; DRAW SITE RT RADIAL; FIO2 21 %; NUMBER OF ARTERIAL PUNCTURES 1; OXYGEN DEVICE ROOM AIR; STAT NO; ULNAR PULSE PRESENT
[2016-08-04] MEDS: LEVOFLOXACIN 750 MG TAB PO SCH (12:33)
[2016-08-04] MEDS: OSELTAMIVIR PHOSPHATE 75 MG CAP PO SCH ×2 (12:33→20:21)
[2016-08-04] MEDS: guaiFENesin E.R. 600 MG TAB PO SCH ×2 (12:33→20:21)
[2016-08-04] MEDS: SODIUM CHLORIDE 0.9% FLUSH 10 ML FLUSH IV FLUSH SCH ×2 (12:34→20:21)
[2016-08-04] MEDS: PANTOPRAZOLE SOD 40 MG DELAYED RELEASE TAB PO SCH (12:34)
[2016-08-04] MEDS: METOCLOPRAMIDE HCL 10 MG/2 ML VIAL IV PUSH PRN (14:34)
[2016-08-05] VITALS (11 sets, daily range): BP systolic 135–157; BP diastolic 78–93; PULSE 89–115; RESP 15–20; TEMP 96.5–98.7; O2SAT 95–98
[2016-08-05] MEDS: traMADol HCL 50 MG TAB PO PRN ×5 (00:28→20:55)
[2016-08-05] MEDS: RESP: ALBUTEROL 2.5 MG/IPRATROPIUM 0.5 MG NEB (SCH) NEB ×3 (04:24→21:23)
[2016-08-05] MEDS: methylPREDNISolone SOD SUCC 40 MG/1 ML VIAL IV PUSH SCH ×3 (05:26→20:54)
[2016-08-05] MEDS: RESP: ALBUTEROL 2.5 MG/IPRATROPIUM 0.5 MG NEB (PRN) NEB (06:34)
[2016-08-05 07:19] LABS: AUTOMATED NEUTROPHIL # 7.1 TH/MM3 (1.8-7.7); BASOPHIL % 0.3 % (0.0-2.0); HEMATOCRIT 36.9 % (35.0-46.0); HEMO FLAGS DIFF FINAL; LYMPH % 9.5 % (9.0-44.0); LYMPHOCYTE # 0.8 TH/MM3 (1.0-4.8); MEAN CORPUSCULAR HEMOGLOBIN 27.1 PG (27.0-34.0); MEAN CORPUSCULAR HGB CONC 32.6 % (32.0-36.0); MONO % 6.6 % (0.0-8.0); NEUT % 83.6 % (16.0-70.0); PLATELET COUNT 213 TH/MM3 (150-450); RED BLOOD COUNT 4.45 MIL/MM3 (4.00-5.30); RED CELL DISTRIBUTION WIDTH 13.6 % (11.6-17.2); WHITE BLOOD COUNT 8.5 TH/MM3 (4.0-11.0)
[2016-08-05 07:40] LABS: CHLORIDE 105 MEQ/L (98-107); POTASSIUM 3.8 MEQ/L (3.5-5.1); SODIUM (NA) 144 MEQ/L (136-145)
[2016-08-05 07:42] LABS: ANION GAP 12 MEQ/L (5-15); BICARBONATE 26.9 MEQ/L (21.0-32.0); BLOOD UREA NITROGEN 13 MG/DL (7-18)
[2016-08-05 07:45] LABS: GLOMERULAR FILTRATION RATE 118 ML/MIN (>89)
[2016-08-05] MEDS: guaiFENesin E.R. 600 MG TAB PO SCH ×2 (08:26→20:55)
[2016-08-05] MEDS: BUDESONIDE-FORMOTEROL 160/4.5 MCG INHALER INH SCH ×2 (08:26→20:53)
[2016-08-05] MEDS: PANTOPRAZOLE SOD 40 MG DELAYED RELEASE TAB PO SCH (08:26)
[2016-08-05] MEDS: TIOTROPIUM BROMIDE 18 MCG INH INH SCH (08:27)
[2016-08-05] MEDS: OSELTAMIVIR PHOSPHATE 75 MG CAP PO SCH ×2 (08:27→20:54)
[2016-08-05] MEDS: SODIUM CHLORIDE 0.9% FLUSH 10 ML FLUSH IV FLUSH SCH ×2 (09:00→20:53)
[2016-08-05] MEDS: METOCLOPRAMIDE HCL 10 MG/2 ML VIAL IV PUSH PRN (09:48)
--- NOTE | 2016-08-05 10:26 | HHI.PR ---
Subjective Remarks Follow-up COPD exacerbation 08/05/16-patient seen and examined reports some improvement of shortness of breath however still wheezing. Patient is more concerned about pain however for anxiety medications. Currently afebrile Objective Vitals Vital Signs Date Time Temp Pulse Resp B/P Pulse Ox O2 Delivery O2 Flow Rate FiO2 08/05/16 08:39 98.3 96 16 149/93 96 08/05/16 06:34 98 Nasal Cannula 2.00 08/05/16 04:15 98.2 89 18 149/83 97 08/05/16 00:31 98.7 94 20 148/90 98 08/04/16 20:43 96.9 101 24 163/90 96 08/04/16 20:00 99 08/04/16 19:47 94 Nasal Cannula 2.00 08/04/16 16:00 97.2 102 22 151/79 98 08/04/16 12:00 98.2 96 22 145/79 96 I/O 08/04/16 08/04/16 08/04/16 08/05/16 08/05/16 08/05/16 07:00 15:00 23:00 07:00 15:00 23:00 Intake Total 360 ml 725 ml Balance 360 ml 725 ml Intake Oral 360 ml 725 ml # Voids 1 4 1 1 # Bowel Movements 0 Result Diagram: 08/05/16 0647 08/05/16 0647 Imaging Last Impressions Chest X-Ray 08/03/16 [id number] Signed Impressions: Service Date/Time: July 18:01 - CONCLUSION: No acute cardiopulmonary disease. Юлия Munguia MD Objective Remarks GENERAL: NAD SKIN: Warm and dry. HEAD: Normocephalic. EYES: No scleral icterus. No injection or drainage. NECK: Supple, trachea midline. No JVD or lymphadenopathy. CARDIOVASCULAR: Regular rate and rhythm without murmurs, gallops, or rubs. RESPIRATORY: Breath sounds decreased bilaterally. No accessory muscle use.exp wheezings GASTROINTESTINAL: Abdomen soft, non-tender, nondistended. MUSCULOSKELETAL: No cyanosis, or edema. BACK: Nontender without obvious deformity. No CVA tenderness. A/P Problem List: (1) COPD with exacerbation ICD Code: J44.1 Status: Acute (2) Acute asthma exacerbation ICD Code: J45.901 Status: Acute (3) Influenza B ICD Code: J10.1 Status: Acute (4) Leukopenia ICD Code: D72.819 Status: Acute Assessment and Plan 75-year-old female with COPD with exacerbation Asthma with exacerbation Influenza B Chest x-ray with No acute cardiopulmonary disease Continue Levaquin, Symbicort, Spiriva, Mucinex, Duo Neb Scheduled + PRN Continue Tamiflu 5 days Continue with Solu-Medrol 40 mg IV however Q8H and maintain oxygen saturation above 92% Leukopenia-resolved Likely secondary to above COPD/asthma exacerbation versus steroid use Continue to monitor CBC IFG Maybe secondary to steroid, A1c pending and treat accordingly Anxiety Resume outpatient medications DVT prophylaxis: Bilateral SCDs Problem Qualifiers (1) Acute asthma exacerbation: Qualified Code: J45.41 - Moderate persistent asthma with acute exacerbation Yves Bauer MD Aug 05, 2016 10:26
[2016-08-05] MEDS ORDERED: MIRT1TAB PO (12:14)
[2016-08-05] MEDS ORDERED: MELA3TAB19 (12:14)
[2016-08-05] MEDS ORDERED: VENL75TA PO (12:14)
[2016-08-05] MEDS ORDERED: PILL SPLITTER OTHER PRN (13:15)
[2016-08-05] MEDS: LEVOFLOXACIN 750 MG TAB PO SCH (14:23)
[2016-08-05] MEDS ORDERED: MELATONIN 3 MG PO SCH ×2 (21:00)
[2016-08-05] MEDS ORDERED: MIRTAZAPINE 15 MG TAB PO SCH (21:00)
[2016-08-06 00:16] VITALS: BP 137/74; PULSE 91; RESP 18; TEMP 98; O2SAT 93
[2016-08-06] MEDS: traMADol HCL 50 MG TAB PO PRN ×2 (02:45→08:45)
[2016-08-06] MEDS: RESP: ALBUTEROL 2.5 MG/IPRATROPIUM 0.5 MG NEB (SCH) NEB ×2 (03:17→09:27)
[2016-08-06 04:18] VITALS: BP 140/76; PULSE 89; RESP 16; TEMP 98.1; O2SAT 94
[2016-08-06] MEDS: methylPREDNISolone SOD SUCC 40 MG/1 ML VIAL IV PUSH SCH (05:20)
[2016-08-06] MEDS: TIOTROPIUM BROMIDE 18 MCG INH INH SCH (08:43)
[2016-08-06] MEDS: OSELTAMIVIR PHOSPHATE 75 MG CAP PO SCH (08:43)
[2016-08-06] MEDS: BUDESONIDE-FORMOTEROL 160/4.5 MCG INHALER INH SCH (08:43)
[2016-08-06] MEDS: guaiFENesin E.R. 600 MG TAB PO SCH (08:43)
[2016-08-06] MEDS: PANTOPRAZOLE SOD 40 MG DELAYED RELEASE TAB PO SCH (08:43)
[2016-08-06] MEDS ORDERED: VENLAFAXINE HCL XR 75 MG CAP PO SCH (09:00)
[2016-08-06 09:10] VITALS: BP 153/82; PULSE 91; RESP 16; TEMP 97.6; O2SAT 93
[2016-08-06 09:28] VITALS: O2SAT 94
--- NOTE | 2016-08-06 10:16 | HHI.PR ---
Subjective Remarks Follow-up COPD exacerbation 08/05/16-patient seen and examined reports some improvement of shortness of breath however still wheezing. Patient is more concerned about pain however for anxiety medications. Currently afebrile 08/06/16-patient seen and examined; denies any shortness of breath. She had a good night sleep Objective Vitals Vital Signs Date Time Temp Pulse Resp B/P Pulse Ox O2 Delivery O2 Flow Rate FiO2 08/06/16 09:28 94 21 08/06/16 09:10 97.6 91 16 153/82 93 08/06/16 04:18 98.1 89 16 140/76 94 08/06/16 00:16 98.0 91 18 137/74 93 08/05/16 22:03 18 08/05/16 21:23 95 21 08/05/16 20:39 97.9 98 20 157/90 98 08/05/16 20:30 95 08/05/16 17:33 96.5 115 15 142/82 97 08/05/16 16:39 98 Nasal Cannula 1.00 08/05/16 13:15 97.3 96 16 135/78 95 08/05/16 11:02 96 Nasal Cannula 2.00 I/O 08/05/16 08/05/16 08/05/16 08/06/16 08/06/16 08/06/16 07:00 15:00 23:00 07:00 15:00 23:00 Intake Total 800 ml Balance 800 ml Intake Oral 800 ml # Voids 1 3 5 Result Diagram: 08/05/16 0647 08/05/16 0647 Imaging Last Impressions Chest X-Ray 08/03/16 [id number] Signed Impressions: Service Date/Time: July 18:01 - CONCLUSION: No acute cardiopulmonary disease. Юлия Munguia MD Objective Remarks GENERAL: NAD SKIN: Warm and dry. HEAD: Normocephalic. EYES: No scleral icterus. No injection or drainage. NECK: Supple, trachea midline. No JVD or lymphadenopathy. CARDIOVASCULAR: Regular rate and rhythm without murmurs, gallops, or rubs. RESPIRATORY: Breath sounds equal bilaterally. No accessory muscle use. GASTROINTESTINAL: Abdomen soft, non-tender, nondistended. MUSCULOSKELETAL: No cyanosis, or edema. BACK: Nontender without obvious deformity. No CVA tenderness. Procedures none A/P Problem List: (1) COPD with exacerbation ICD Code: J44.1 Status: Resolved (2) Acute asthma exacerbation ICD Code: J45.901 Status: Resolved (3) Influenza B ICD Code: J10.1 Status: Acute (4) Leukopenia ICD Code: D72.819 Status: Resolved Assessment and Plan 75-year-old female with COPD with exacerbation-resolved Asthma with exacerbation-resolved Influenza B Chest x-ray with No acute cardiopulmonary disease Continue Levaquin, Symbicort, Spiriva, Mucinex, Duo Neb Scheduled + PRN Continue Tamiflu 5 days total Continue with Solu-Medrol 40 mg IV however Q8H and maintain oxygen saturation above 92% Leukopenia-resolved Likely secondary to above COPD/asthma exacerbation versus steroid use Continue to monitor CBC IFG Maybe secondary to steroid, A1c pending and treat accordingly Anxiety continue outpatient medications DVT prophylaxis: Bilateral SCDs Problem Qualifiers (1) Acute asthma exacerbation: Qualified Code: J45.41 - Moderate persistent asthma with acute exacerbation Yves Bauer MD Aug 06, 2016 10:16
[2016-08-06] MEDS ORDERED: MUCI600T PO (10:21)
[2016-08-06] MEDS ORDERED: SPIRCAP INH (10:21)
[2016-08-06] MEDS ORDERED: OSEL75 PO (10:21)
[2016-08-06] MEDS ORDERED: PRED20 PO (10:21)
[2016-08-06] MEDS ORDERED: SYMB160A INH (10:21)
[2016-08-06] MEDS ORDERED: ALBU6.7H INH (10:22)
--- NOTE | 2016-08-06 10:27 | HHI.DS ---
Discharge Summary Admission Date Aug 04, 2016 at 10:46 Discharge Date: Aug 06, 2016 Admitting Diagnosis acute exacerbation asthma (1) COPD with exacerbation ICD Code: J44.1 (2) Acute asthma exacerbation ICD Code: J45.901 (3) Influenza B ICD Code: J10.1 (4) Leukopenia ICD Code: D72.819 Procedures none Brief History - From Admission 75-year-old female with a history of asthma/COPD presented to the ED for evaluation of worsening symptoms of shortness of breath, cough production along with severe symptoms of chest congestion times several days duration. Patient was diagnosed last week 07/25/16 with upper respiratory infection however not therapy was initiated at a time. Patient reported improvement of symptoms but the following week on Sunday07/27/16 severely short of breath with significant cough production but no febrile episode. She was started on Z-Dilip which patient completed without any significant improvement. She also denies any improvement of her shortness of breath with nebulizer treatment as well as prescribed steroid by her filenet p8 developer. CBC/BMP: 08/05/16 0647 08/05/16 0647 Significant Findings Laboratory Tests Test 08/03/16 08/03/16 08/04/16 08/04/16 20:20 21:25 06:10 10:50 White Blood Count 2.7 TH/MM3 3.8 TH/MM3 (4.0-11.0) (4.0-11.0) Monocytes (%) (Auto) 10.9 % (0.0-8.0) Neutrophils # (Auto) 1.7 TH/MM3 (1.8-7.7) Lymphocytes # (Auto) 0.7 TH/MM3 0.4 TH/MM3 (1.0-4.8) (1.0-4.8) Random Glucose 121 MG/DL 158 MG/DL (74-106) (74-106) Albumin 3.2 GM/DL (3.4-5.0) Urine Ketones TRACE mg/dL (NEG) Platelet Count 148 TH/MM3 (150-450) Neutrophils (%) (Auto) 84.2 % (16.0-70.0) Chloride Level 108 MEQ/L (98-107) Creatinine 0.46 MG/DL (0.50-1.00) Calcium Level 8.1 MG/DL (8.5-10.1) Arterial Blood pH 7.45 (7.380-7.420) Arterial Blood Partial 35 mmHG (38-42) Pressure CO2 Blood Gas Hemoglobin 11.8 G/DL (12.0-16.0) Test 08/05/16 06:47 Neutrophils (%) (Auto) 83.6 % (16.0-70.0) Lymphocytes # (Auto) 0.8 TH/MM3 (1.0-4.8) Random Glucose 121 MG/DL (74-106) Calcium Level 8.3 MG/DL (8.5-10.1) Imaging Last Impressions Chest X-Ray 08/03/16 [id number] Signed Impressions: Service Date/Time: , August 03, 2016 18:01 - CONCLUSION: No acute cardiopulmonary disease. Юлия Munguia MD PE at Discharge GENERAL: NAD SKIN: Warm and dry. HEAD: Normocephalic. EYES: No scleral icterus. No injection or drainage. NECK: Supple, trachea midline. No JVD or lymphadenopathy. CARDIOVASCULAR: Regular rate and rhythm without murmurs, gallops, or rubs. RESPIRATORY: Breath sounds equal bilaterally. No accessory muscle use. GASTROINTESTINAL: Abdomen soft, non-tender, nondistended. MUSCULOSKELETAL: No cyanosis, or edema. BACK: Nontender without obvious deformity. No CVA tenderness. Hospital Course Patient admitted secondary to COPD/asthma exacerbation for which she was started on IV Solu-Medrol, long and short acting beta agonists, by mouth antibiotics and oxygen saturation maintained above 92%. She was also diagnosed with influenza type B for which she was started on Tamiflu. Patient condition subsequently improved and she was switched to by mouth prednisone prior to discharge. He was continue treatment for other chronic medical conditions. DVT and GI prophylaxis were provided. Vital remained stable prior to discharge. Pt Condition on Discharge: Stable Discharge Disposition: Disch w/ Home Health Serv Discharge Time: > 30 minutes Discharge Instructions DIET: Follow Instructions for: Heart Healthy Diet Activities you can perform: Regular-No Restrictions Follow up Referrals: PCP Follow-up - 1 Week New Medications: Albuterol 6.7 GM Inh (Proventil Hfa 6.7 GM Inh) 90 Mcg/Act Aer 1 PUFF INH Q4H PRN SHORTNESS OF BREATH #1 Ref 1 INHALER Prednisone (Prednisone) 20 Mg Tab 20 MG PO DIRECTED 40 MG twice a day x 3 days, then 20 MG daily x 3 days, then 10 MG daily x 3 days Inflammation #11 Ref 0 TAB Budesonide-Formoterol Inh (Symbicort Inh) 160-4.5 Mcg/Act Aero 2 PUFF INH Q12HR Breathing Treatment #1 Ref 3 INHALER Guaifenesin ER 12 HR (Mucinex ER 12 HR) 600 Mg Carli 600 MG PO BID Breathing Treatment #20 TAB Oseltamivir (Tamiflu) 75 Mg Cap 75 MG PO BID Infection #3 CAP Tiotropium Inh (Spiriva Handihaler) 18 Mcg Cap 18 MCG INH DAILY Breathing Treatment #1 CAP Continued Medications: Albuterol 6.7 GM Inh (Proventil Hfa 6.7 GM Inh) 90 Mcg/Act Aer 1 PUFF INH Q4H PRN SHORTNESS OF BREATH #1 Ref 0 INHALER Hydrocodone-Acetaminophen (Lortab) 10-325 Mg Tab 1 TAB PO DAILY PAIN Ref 0 TAB Melatonin-Pyridoxine (Melatonin 3-2 mg) 1 Tab Tab Mirtazapine (Mirtazapine) 7.5 Mg Tab 7.5 MG PO HS Depression Control #30 Ref 0 TAB Tramadol (Tramadol) 50 Mg Tab 50 MG PO Q6H PAIN Ref 0 TAB Venlafaxine (Effexor) 75 Mg Tab 75 MG PO Q12H #60 Ref 0 TAB ([Nebulizer Treatments]) Discontinued Medications: Fluticasone-Salmeterol Inh (Advair Diskus Inh) 100-50 Mcg/Blist Aer 1 PUFF INH BID Rinse mouth after use. Asthma Management #1 Ref 0 INHALER Prednisone (Prednisone) 20 Mg Tab 40 MG PO DAILY Ref 0 TAB Yves Bauer MD Aug 06, 2016 10:26
[2016-08-06 10:44] LABS: HEMOGLOBIN A1a 1.1 %; HEMOGLOBIN Ao 83.7 %; HEMOGLOBIN LA1C 2.2 %; HEMOGLOBIN P3 4.4 %
--- NOTE | 2016-08-06 10:46 | HHI.FF ---
Face to Face Verification Diagnosis: (1) COPD with exacerbation (2) Acute asthma exacerbation (3) Influenza B (4) Leukopenia Home Health Nursing Order: Signs/symptoms of disease process I have seen patient Laurie Driscoll on 08/06/16. My clinical findings support the need for the requested home health care services because: Patient has SOB Deconditioned w/ increased weakness I certify that my clinical findings support that this patient is homebound because: Poor cardiac reserve Yves Bauer MD Aug 06, 2016 10:46
[2016-08-06] MEDS: LEVOFLOXACIN 750 MG TAB PO SCH (12:46)
[2016-08-07] MEDS ORDERED: predniSONE 20 MG TAB PO SCH (09:00)
--- NOTE | 2016-08-07 23:08 | EKG ---
Date Performed: 08/06/2016 Time Performed: 12:21:24 PTAGE: 75 years EKG: Sinus tachycardia with PAC(s). Septal T wave changes are nonspecific Borderline ECG PREVIOUS TRACING : 04/17/2016 18.03 Compared to prior tracing no significant change DOCTOR: Zechariah Goldberg Interpretating Date/Time 08/07/2016 23:07:46
== END 2016-08-06 12:49 | disposition home health service (06) | DRG 191 ==
LOC: PHED 17:22 → PHEDA 20:09 → PH3B 22:06 → OBSVTOIN 08-04 10:46
PROVIDERS: ADMIT Hospitalist; ATTEND Hospitalist
DX: J44.1 Chronic obstructive pulmonary disease with (acute) exacerbation (principal); J45.41 Moderate persistent asthma with (acute) exacerbation; J10.1 Influenza due to other identified influenza virus with other respiratory manifestations; E78.5 Hyperlipidemia, unspecified; D72.819 Decreased white blood cell count, unspecified; F41.9 Anxiety disorder, unspecified
CPT/HCPCS: 36600; 71010; 80048; 80053; 81001; 82805; 83036; 85025; 85610; 85730; 87804; 93005; 94640; 94664; 96374; J0692; J2765; J2920; J2930; J7030

== ENCOUNTER 2016-08-07 09:15 | Emergency (ER) | payer MEDICARE, OTHER ==
[~2016-08-07] VITALS: Ht 165.1 cm; Wt 67.0 kg
[~2016-08-07 09:15] MED LIST changes: -ADVA100A INH; -AMOX500T PO; +HYDR-3535 PO; -HYDR5SYP10 PO; +MELA3TAB19; +MIRT1TAB PO; +MUCI600T PO; +OSEL75 PO; +SPIRCAP INH; -THEO400T2 PO; +TRAM50TA PO; +VENL75TA PO
[2016-08-07 09:18] VITALS: BP 148/89; PULSE 119; RESP 26; TEMP 98.3; O2SAT 96
[2016-08-07 09:40] VITALS: BP 131/76; PULSE 106; RESP 22; TEMP 98.1; O2SAT 98
[2016-08-07] MEDS: RESP: ALBUTEROL 2.5 MG/IPRATROPIUM 0.5 MG NEB (SCH) INH ×2 (09:43→09:44)
[2016-08-07 09:45] VITALS: RESP 22; O2SAT 95
[2016-08-07] MEDS ORDERED: SODIUM CHLORIDE 0.9% FLUSH 10 ML FLUSH IVF PRN (09:45)
[2016-08-07] MEDS ORDERED: SODIUM CHLORID 0.9% 500 ML INJ 500 ML IV ONE (09:45)
[2016-08-07] MEDS ORDERED: methylPREDNISolone SOD SUCC 125 MG/2 ML VIAL IVP ONE (09:45)
[2016-08-07 10:06] LABS: AUTOMATED NEUTROPHIL # 6.9 TH/MM3 (1.8-7.7); BASOPHIL # 0.1 TH/MM3 (0-0.2); BASOPHIL % 1.3 % (0.0-2.0); EOSINOPHIL % 0.1 % (0.0-4.0); HEMATOCRIT 38.7 % (35.0-46.0); LYMPH % 22.2 % (9.0-44.0); LYMPHOCYTE # 2.3 TH/MM3 (1.0-4.8); MEAN CELL VOLUME 82.8 FL (80.0-100.0); MEAN CORPUSCULAR HEMOGLOBIN 27.8 PG (27.0-34.0); MEAN CORPUSCULAR HGB CONC 33.6 % (32.0-36.0); MONO % 9.9 % (0.0-8.0); NEUT % 66.5 % (16.0-70.0); PLATELET COUNT 247 TH/MM3 (150-450); RED BLOOD COUNT 4.67 MIL/MM3 (4.00-5.30); RED CELL DISTRIBUTION WIDTH 13.5 % (11.6-17.2); WHITE BLOOD COUNT 10.3 TH/MM3 (4.0-11.0)
[2016-08-07 10:07] LABS: HEMO FLAGS DIFF FINAL
--- NOTE | 2016-08-07 10:10 | PD ---
HPI Chief Complaint: Respiratory Symptoms Time Seen by Provider: 09:35 Travel History International Travel<30 days: No Contact w/Intl Traveler<30days: No Traveled to known affect area: No History of Present Illness HPI 75-year-old female presents with shortness of breath and worsening of her asthma and getting her prednisone filled and taking that but not taking her other medications. She tried a nebulizer before coming in. She confirms she was just discharged last night for her asthma. She denies other concurrent complaints. Quality is wheezing. Severity is increasing. Duration is since last night. PFSH Past Medical History Arthritis: Yes (lower back) Asthma: Yes Autoimmune Disease: No Anxiety: Yes Depression: No Heart Rhythm Problems: No Cancer: Yes (RIGHT FOOT) Cardiovascular Problems: Yes (dyslipidemia) High Cholesterol: Yes Chemotherapy: No Chest Pain: No Congestive Heart Failure: No COPD: Yes Cerebrovascular Accident: No Diabetes: No Diminished Hearing: No Endocrine: Yes Gastrointestinal Disorders: Yes (HX OF CONSTIPATION, TAKES MIRALAX EVERY OTHER DAY) GERD: No Genitourinary: Yes ([employer] BLADDER SURGERY) Headaches: Yes Hiatal Hernia: No Immune Disorder: No Implanted Vascular Access Dvce: No Kidney Stones: Yes (2006) Musculoskeletal: Yes Neurologic: Yes Psychiatric: Yes Reproductive: No Respiratory: Yes Immunizations Current: Yes Migraines: No Radiation Therapy: No Renal Failure: No Seizures: No Sickle Cell Disease: No Sleep Apnea: No Thyroid Disease: Yes ?: Not Menopausal: Yes Past Surgical History AICD: No Arteriovenous Shunt: No Endocrine Surgery: Yes (parathyroid surgery) Genitourinary Surgery: Yes (KIDNEY STONES REMOVED 2006) Gynecologic Surgery: Yes ( BLADDER LIFT) Hysterectomy: Yes Insulin Pump: No Joint Replacement: No Pacemaker: No Other Surgery: Yes (PARATHYROID SURGERY) Social History Alcohol Use: No Tobacco Use: No Substance Use: No Allergies-Medications (Allergen,Severity, Reaction): Coded Allergies: Contrast Media (Verified Allergy, Unknown, Shortness of Breath, 08/07/16) Reported Meds & Prescriptions Reported Meds & Active Scripts Active Prednisone 20 Mg Tab 20 Mg PO DIRECTED 40 MG twice a day x 3 days, then 20 MG daily x 3 days, then 10 MG daily x 3 days Symbicort Inh (Budesonide/Formoterol Fumarate) 160-4.5 Mcg/Act Aero 2 Puff INH Q12HR Spiriva Handihaler (Tiotropium Inh) 18 Mcg Cap 18 Mcg INH DAILY Tamiflu (Oseltamivir Phosphate) 75 Mg Cap 75 Mg PO BID Mucinex ER 12 HR (Guaifenesin) 600 Mg Carli 600 Mg PO BID Proventil Hfa 6.7 GM Inh (Albuterol Sulfate) 90 Mcg/Act Aer 1 Puff INH Q4H PRN Reported Melatonin 3-2 mg (Melatonin-Pyridoxine) 1 Tab Tab Mirtazapine 7.5 Mg Tab 7.5 Mg PO HS Lortab (Hydrocodone-Acetaminophen) 10-325 Mg Tab 1 Tab PO DAILY [Nebulizer Treatments] Review of Systems Except as stated in HPI: all other systems reviewed are Neg Physical Exam Narrative General: No apparent distress, well appearing ENT:mmm Neck: Neck is supple, no meningeal signs, trachea is midline Cardiovascular: Tachycardic rate and regular rhythm Lungs: Mild increased respiratory effort noted, inspiratory and expiratory wheezing bilaterally Abdomen: Soft, NT, ND, no rebound or guarding Back: No step-offs Extremities: No edema Neuro: Awake, motor and sensation grossly intact, normal speech Data Data Last Documented VS Vital Signs Date Time Temp Pulse Resp B/P Pulse Ox O2 Delivery O2 Flow Rate FiO2 08/07/16 10:30 96 20 130/74 96 Room Air 08/07/16 09:40 98.1 Orders Complete Blood Count With Diff (08/07/16 09:37) Basic Metabolic Panel (Bmp) (08/07/16 09:37) Magnesium (Mg) (08/07/16 09:37) Iv Access Insert/Monitor (08/07/16 09:37) Electrocardiogram (08/07/16 09:37) Ecg Monitoring (08/07/16 09:37) Oximetry (08/07/16 09:37) Chest, Single Ap (08/07/16 09:37) Sodium Chloride 0.9% Flush (Ns Flush) (08/07/16 09:45) Methylprednisolone So Succ Inj (Solumedr (08/07/16 09:45) Albuterol-Ipratropium Neb (Duoneb Neb) (08/07/16 09:45) Lactic Acid (08/07/16 09:38) Sodium Chlorid 0.9% 500 Ml Inj (Ns 500 M (08/07/16 09:45) Dexamethasone Inj (Decadron Inj) (08/07/16 10:45) Labs Laboratory Tests Test 08/07/16 09:50 White Blood Count 10.3 TH/MM3 Red Blood Count 4.67 MIL/MM3 Hemoglobin 13.0 GM/DL Hematocrit 38.7 % Mean Corpuscular Volume 82.8 FL Mean Corpuscular Hemoglobin 27.8 PG Mean Corpuscular Hemoglobin 33.6 % Concent Red Cell Distribution Width 13.5 % Platelet Count 247 TH/MM3 Mean Platelet Volume 8.4 FL Neutrophils (%) (Auto) 66.5 % Lymphocytes (%) (Auto) 22.2 % Monocytes (%) (Auto) 9.9 % Eosinophils (%) (Auto) 0.1 % Basophils (%) (Auto) 1.3 % Neutrophils # (Auto) 6.9 TH/MM3 Lymphocytes # (Auto) 2.3 TH/MM3 Monocytes # (Auto) 1.0 TH/MM3 Eosinophils # (Auto) 0.0 TH/MM3 Basophils # (Auto) 0.1 TH/MM3 CBC Comment DIFF FINAL Differential Comment Sodium Level 143 MEQ/L Potassium Level 3.2 MEQ/L Chloride Level 105 MEQ/L Carbon Dioxide Level 28.3 MEQ/L Anion Gap 10 MEQ/L Blood Urea Nitrogen 22 MG/DL Creatinine 0.74 MG/DL Estimat Glomerular Filtration 77 ML/MIN Rate Random Glucose 87 MG/DL Lactic Acid Level 1.4 mmol/L Calcium Level 8.1 MG/DL Magnesium Level 2.3 MG/DL MDM Medical Decision Making Medical Screen Exam Complete: Yes Emergency Medical Condition: Yes Medical Record Reviewed: Yes (Past history confirmed, just discharged from hospital with COPD exacerbation and influenza B) Interpretation(s) EKG shows sinus tachycardia at [address] changes or T-wave inversion CBC & BMP Diagram 08/07/16 09:50 cxr no acute Differential Diagnosis COPD exacerbation, influenza, pneumonia... Narrative Course Will check blood work, EKG, chest x-ray and dose with Solu-Medrol and DuoNeb's and reevaluate labs without emergent findings, ctab after nebs, vitals improved, patient with poor access will change solumedrol to decadron IM, Patient denies any new complaints and states that they are feeling better. Patient happy with care, all questions answered. Patient knows that follow up is incumbent on them and to return to the emergency room immediately if new or worsening symptoms develop. Patient given strict return precautions, vitals reviewed and are normal , agrees to further workup as an outpatient. Diagnosis Primary Impression: COPD with exacerbation Patient Instructions: General Instructions Additional Instructions: fill prescriptions as ordered yesterday, follow with primary tommorrow, return as needed Med/Other Pt SpecificInfo: No Change to Meds Disposition: 01 DISCHARGE HOME Condition: Stable Karen Juarez MD August 07, 2016 10:10 Karen Juarez MD August 07, 2016 10:10
[2016-08-07 10:17] LABS: POTASSIUM 3.2 MEQ/L (3.5-5.1)
[2016-08-07 10:20] LABS: BICARBONATE 28.3 MEQ/L (21.0-32.0); MAGNESIUM 2.3 MG/DL (1.5-2.5)
[2016-08-07 10:30] VITALS: BP 130/74; PULSE 96; RESP 20; O2SAT 96
--- NOTE | 2016-08-07 10:38 | RADHPO ---
EXAM DATE/TIME: 08/07/2016 10:00 [facility] COMPARISON: CHEST SINGLE AP, August 03, 2016, 18:01. INDICATIONS : Short of breath. MEDICAL HISTORY : Chronic obstructive pulmonary disease. Hypercholesterolemia. dyslipidemia, asthma, thyroid disea se SURGICAL HISTORY : parathyroid ENCOUNTER: Initial ACUITY: 2 days PAIN SCORE: 0/10 LOCATION: Bilateral chest FINDINGS: A single view of the chest demonstrates the lungs to be symmetrically aerated without evidence of mas s, infiltrate or effusion. The cardiomediastinal contours are unremarkable. Osseous structures are intact. Surgical clips overlie low notch. CONCLUSION: No acute disease. Gaurav Wells MD on August 07, 2016 at 10:19 Board Certified Radiologist. This report was verified electronically.
[2016-08-07] MEDS ORDERED: DEXAMETHASONE SOD PHOS 4 MG/ML VIAL IM ONE (10:45)
--- NOTE | 2016-08-07 16:38 | EKG ---
Date Performed: 08/07/2016 Time Performed: 09:51:22 PTAGE: 75 years EKG: Sinus tachycardia Normal ECG except for rate PREVIOUS TRACING : 08/06/2016 12.21 Compared to previous tracing, PACs are no longer pres ent. DOCTOR: Radhames Kirk Interpretating Date/Time 08/07/2016 16:37:16
== END 2016-08-07 11:13 | disposition home or self-care (01) ==
LOC: PHED 09:15
DX: J44.1 Chronic obstructive pulmonary disease with (acute) exacerbation (principal); J45.909 Unspecified asthma, uncomplicated; R00.0 Tachycardia, unspecified
CPT/HCPCS: 71010; 80048; 83605; 83735; 85025; 93005; 94640; 94664; 96372; 99285; J1100

== ENCOUNTER → 2016-09-28 | Outpatient (CLI) | payer OTHER ==
[~2016-09-28] MED LIST changes: -TRAM50TA PO; -VENL75TA PO
--- NOTE | 2016-09-29 10:07 | RSPPFT ---
DATE OF PROCEDURE: 09/28/16 COMMENTS: VOLUMES DYNAMIC: FVC moderately reduced; FEV1 severely reduced. STATIC: TLC mildly reduced; FRC and RV normal. FLOWS: FEV1% moderately reduced; FEF 25-75 severely reduced. DIFFUSION: Severely reduced. FLOW VOLUME LOOP: Pattern of variable intrathoracic airways obstruction. IMPRESSION: Severe obstructive ventilatory defect with reduction in diffusion consistent with emphysema. There is no significant hyperinflation. There is improvement post-bronchodilator.
== END ==
LOC: HRSP 13:07
PROVIDERS: ATTEND Internal Medicine
DX: J45.909 Unspecified asthma, uncomplicated (principal)
CPT/HCPCS: 94060; 94620; 94726; 94729

== ENCOUNTER 2016-12-14 16:18 | Emergency (ER) | payer OTHER ==
[~2016-12-14] VITALS: Ht 165.1 cm; Wt 73.0 kg
[2016-12-14 16:23] VITALS: BP 114/72; PULSE 92; RESP 16; TEMP 99; O2SAT 96
[2016-12-14] MEDS ORDERED: TRAM50TA PO (16:39)
[2016-12-14] MEDS ORDERED: ADVA500A INH (16:39)
[2016-12-14] MEDS ORDERED: ALBU1.25 NEB (16:39)
[2016-12-14] MEDS ORDERED: CIPR-9 PO (16:39)
--- NOTE | 2016-12-14 16:58 | PD ---
HPI Chief Complaint: Respiratory Symptoms Time Seen by Provider: 16:43 Travel History International Travel<30 days: No Contact w/Intl Traveler<30days: No Traveled to known affect area: No History of Present Illness HPI 76yo F with PMH of asthma here with c/o sob for 3-4 days. States it feels like her asthma. Also with some midsternal chest tightness. Denies any fever, cough , n/v, abdominal pain, focal weakness or numbness. Pt saw her primary care physician end of last month and was started on prednisone and cipro on 12/09. States she still feels sob. PFSH Past Medical History Arthritis: Yes (lower back) Asthma: Yes Autoimmune Disease: No Anxiety: Yes Depression: No Heart Rhythm Problems: No Cancer: Yes (RIGHT FOOT) Cardiovascular Problems: Yes (dyslipidemia) High Cholesterol: Yes Chemotherapy: No Chest Pain: No Congestive Heart Failure: No COPD: Yes Cerebrovascular Accident: No Diabetes: No Diminished Hearing: No Endocrine: Yes Gastrointestinal Disorders: Yes (HX OF CONSTIPATION, TAKES MIRALAX EVERY OTHER DAY) GERD: No Genitourinary: Yes (STRESS INC BLADDER SURGERY) Headaches: Yes Hiatal Hernia: No Heparin Induced Thrombocytopen: No Hypertension: No Immune Disorder: No Implanted Vascular Access Dvce: No Kidney Stones: Yes (2006) Musculoskeletal: Yes Neurologic: Yes Psychiatric: Yes Reproductive: No Respiratory: Yes (asthma) Immunizations Current: Yes Migraines: No Radiation Therapy: No Renal Failure: No Seizures: No Sickle Cell Disease: No Sleep Apnea: No Thyroid Disease: Yes Tetanus Vaccination: Unknown ?: Not Menopausal: Yes Past Surgical History AICD: No Arteriovenous Shunt: No Endocrine Surgery: Yes (parathyroid surgery) Genitourinary Surgery: Yes (KIDNEY STONES REMOVED 2006) Gynecologic Surgery: Yes ( BLADDER LIFT) Hysterectomy: Yes Insulin Pump: No Joint Replacement: No Pacemaker: No Other Surgery: Yes (PARATHYROID SURGERY, angioplasty right leg) Social History Alcohol Use: No Tobacco Use: No Substance Use: No Allergies-Medications (Allergen,Severity, Reaction): Coded Allergies: diatrizoate meglumine (Unverified Allergy, Unknown, Shortness of Breath, ) gadobenic acid (Unverified Allergy, Unknown, Shortness of Breath, 11/21/16) gadodiamide (Unverified Allergy, Unknown, Shortness of Breath, 11/21/16) gadoteridol (Unverified Allergy, Unknown, Shortness of Breath, 11/21/16) iodixanol (Unverified Allergy, Unknown, Shortness of Breath, 11/21/16) iohexol (Unverified Allergy, Unknown, Shortness of Breath, 11/21/16) Reported Meds & Prescriptions Reported Meds & Active Scripts Active Ventolin Hfa 18 GM Inh (Albuterol Sulfate) 90 Mcg/Act Aer 2 Puff INH Q4H PRN Deltasone (Prednisone) 20 Mg Tab 20 Mg PO BID 5 Days Prednisone 20 Mg Tab 20 Mg PO DIRECTED 40 MG twice a day x 3 days, then 20 MG daily x 3 days, then 10 MG daily x 3 days Proventil Hfa 6.7 GM Inh (Albuterol Sulfate) 90 Mcg/Act Aer 1 Puff INH Q4H PRN Reported Tramadol (Tramadol HCl) 50 Mg Tab 50 Mg PO Q8H PRN Cipro (Ciprofloxacin HCl) 500 Mg Tab 500 Mg PO BID Albuterol Neb (Albuterol Sulfate) 1.25 Mg/3 Ml Neb 1.25 Mg NEB QID NEB PRN Advair Diskus Inh (Fluticasone-Salmeterol Inh) 500-50 Mcg/Blist Aer 2 Puff INH BID Rinse mouth after use. Melatonin 3-2 mg (Melatonin-Pyridoxine) 1 Tab Tab Lortab (Hydrocodone-Acetaminophen) 10-325 Mg Tab 1 Tab PO DAILY [Nebulizer Treatments] Review of Systems Except as stated in HPI: all other systems reviewed are Neg Physical Exam Narrative GENERAL: 76yo F in mild distress. SKIN: Focused skin assessment warm/dry. HEAD: Atraumatic. Normocephalic. EYES: Pupils equal and round. No scleral icterus. No injection or drainage. ENT: No nasal bleeding or discharge. Mucous membranes pink and moist. NECK: Trachea midline. No JVD. CARDIOVASCULAR: Regular rate and rhythm. No murmur appreciated. RESPIRATORY: No accessory muscle use. Poor air entry. End expiratory wheezing. GASTROINTESTINAL: Abdomen soft, non-tender, nondistended. MUSCULOSKELETAL: No obvious deformities. No clubbing. No cyanosis. +Bilateral lower ext edema. NEUROLOGICAL: Awake and alert. No obvious cranial nerve deficits. Motor grossly within normal limits. Normal speech. PSYCHIATRIC: Appropriate mood and affect; insight and judgment normal. Data Data Last Documented VS Vital Signs Date Time Temp Pulse Resp B/P (MAP) Pulse Ox O2 Delivery O2 Flow Rate FiO2 12/14/16 19:29 92 18 166/88 (114) 97 Room Air 12/14/16 16:23 99.0 Orders Orders Complete Blood Count With Diff (12/14/16 16:53) Basic Metabolic Panel (Bmp) (12/14/16 16:53) Act Partial Throm Time (Ptt) (12/14/16 16:53) Prothrombin Time / Inr (Pt) (12/14/16 16:53) Troponin I (12/14/16 16:53) Electrocardiogram (12/14/16 16:53) Chest, Single Ap (12/14/16 16:53) Methylprednisolone So Succ Inj (Solumedr (12/14/16 17:00) Albuterol-Ipratropium Neb (Duoneb Neb) (12/14/16 17:00) Labs Laboratory Tests Test 12/14/16 17:24 White Blood Count 11.4 TH/MM3 Red Blood Count 4.72 MIL/MM3 Hemoglobin 13.0 GM/DL Hematocrit 39.0 % Mean Corpuscular Volume 82.5 FL Mean Corpuscular Hemoglobin 27.5 PG Mean Corpuscular Hemoglobin Concent 33.3 % Red Cell Distribution Width 14.4 % Platelet Count 279 TH/MM3 Mean Platelet Volume 8.4 FL Neutrophils (%) (Auto) 83.3 % Lymphocytes (%) (Auto) 11.6 % Monocytes (%) (Auto) 4.9 % Eosinophils (%) (Auto) 0.1 % Basophils (%) (Auto) 0.1 % Neutrophils # (Auto) 9.5 TH/MM3 Lymphocytes # (Auto) 1.3 TH/MM3 Monocytes # (Auto) 0.6 TH/MM3 Eosinophils # (Auto) 0.0 TH/MM3 Basophils # (Auto) 0.0 TH/MM3 CBC Comment DIFF FINAL Differential Comment Prothrombin Time 10.0 SEC Prothromb Time International Ratio 0.9 RATIO Activated Partial Thromboplast Time 23.8 SEC Blood Urea Nitrogen 25 MG/DL Creatinine 0.79 MG/DL Random Glucose 118 MG/DL Calcium Level 8.2 MG/DL Sodium Level 139 MEQ/L Potassium Level 4.4 MEQ/L Chloride Level 105 MEQ/L Carbon Dioxide Level 26.0 MEQ/L Anion Gap 8 MEQ/L Estimat Glomerular Filtration Rate 71 ML/MIN Troponin I LESS THAN 0.02 NG/ML MDM Medical Decision Making Medical Screen Exam Complete: Yes Emergency Medical Condition: Yes Interpretation(s) EKG: NSR 89bpm. Normal axis. No ST segment elevation or depression. Differential Diagnosis asthma/COPD exacerbation vs. pneumonia vs. atypical ACS Narrative Course 76yo F with asthma here with sob, chest tightness and wheezing. Feels like her asthma. Pt given methylprednisolone 125mg IV, duonebs x3. Pt reevaluated at bedside and is feeling much better. She wants to go home. Lungs are clear now. Pt is saturating at 96-97% on RA. Pt ambulating in the ED without sob and wants to go home. Chest tightness improved. Labs reviewed, WBC 11.4, pt is on steroids. Troponin negative. BUN mildly elevated, pt tolerating PO. CXR showed no acute infiltrate. Return precautions given. Diagnosis Primary Impression: Acute asthma exacerbation Qualified Codes: J45.901 - Unspecified asthma with (acute) exacerbation Patient Instructions: General Instructions Departure Forms: Tests/Procedures Additional Instructions: Please follow up with your primary care physician in 1-2 days. Return to the ED if symptoms worsen. Med/Other Pt SpecificInfo: Prescription(s) given Scripts Albuterol 18 GM Inh (Ventolin Hfa 18 GM Inh) 90 Mcg/Act Aer 2 PUFF INH Q4H Y for SHORTNESS OF BREATH, #1 INHALER 0 Refills Prov: Jessica Cruz DO 12/14/16 Prednisone (Deltasone) 20 Mg Tab 20 MG PO BID for 5 Days, #60 TAB 0 Refills Prov: Jessica Curz DO 12/14/16 Disposition: 01 DISCHARGE HOME Condition: Stable Jessica Cruz DO Dec 14, 2016 16:58
[2016-12-14] MEDS ORDERED: methylPREDNISolone SOD SUCC 125 MG/2 ML VIAL IVP ONE (17:00)
[2016-12-14] MEDS: RESP: ALBUTEROL 2.5 MG/IPRATROPIUM 0.5 MG NEB (SCH) INH ×2 (17:18→17:19)
[2016-12-14 17:46] LABS: AUTOMATED NEUTROPHIL # 9.5 TH/MM3 (1.8-7.7); BASOPHIL % 0.1 % (0.0-2.0); EOSINOPHIL % 0.1 % (0.0-4.0); HEMO FLAGS DIFF FINAL; LYMPH % 11.6 % (9.0-44.0); LYMPHOCYTE # 1.3 TH/MM3 (1.0-4.8); MEAN CELL VOLUME 82.5 FL (80.0-100.0); MEAN CORPUSCULAR HEMOGLOBIN 27.5 PG (27.0-34.0); MEAN CORPUSCULAR HGB CONC 33.3 % (32.0-36.0); MONO % 4.9 % (0.0-8.0); NEUT % 83.3 % (16.0-70.0); PLATELET COUNT 279 TH/MM3 (150-450); RED BLOOD COUNT 4.72 MIL/MM3 (4.00-5.30); RED CELL DISTRIBUTION WIDTH 14.4 % (11.6-17.2); WHITE BLOOD COUNT 11.4 TH/MM3 (4.0-11.0)
[2016-12-14 17:55] LABS: CHLORIDE 105 MEQ/L (98-107); POTASSIUM 4.4 MEQ/L (3.5-5.1); SODIUM (NA) 139 MEQ/L (136-145)
[2016-12-14 17:57] LABS: ANION GAP 8 MEQ/L (5-15); BLOOD UREA NITROGEN 25 MG/DL (7-18)
[2016-12-14 18:00] LABS: APTT (PATIENT) 23.8 SEC (24.3-30.1); INTERNATIONAL NORMALIZED RATIO 0.9 RATIO
[2016-12-14 18:01] LABS: GLOMERULAR FILTRATION RATE 71 ML/MIN (>89)
[2016-12-14 18:48] VITALS: BP 178/93; PULSE 99; O2SAT 95
[2016-12-14] MEDS ORDERED: PRED-503 PO (19:12)
[2016-12-14] MEDS ORDERED: VENTAER INH (19:12)
[2016-12-14 19:29] VITALS: BP 166/88; PULSE 92; RESP 18; O2SAT 97
--- NOTE | 2016-12-14 19:57 | RADRPT ---
EXAM DATE/TIME: 12/14/2016 17:19 [facility] COMPARISON: CHEST SINGLE AP, August 07, 2016, 10:00. INDICATIONS : Short of breath MEDICAL HISTORY : None. SURGICAL HISTORY : None. ENCOUNTER: Initial ACUITY: 1 day PAIN SCORE: 0/10 LOCATION: Bilateral chest FINDINGS: A single view of the chest demonstrates the lungs to be hypoinflated but clear. Accounting for low gilmar ng findings, the heart size still appears to be prominent a well compensated. Stable surgical clips i n the lower neck/thyroid bed. Osseous structures are intact with a levoscoliosis of the dorsal spine and associated degenerative changes. CONCLUSION: 1. Hypoinflation with no acute infiltrate. 2. Compensated cardiomegaly. Kong Ambrosio MD on December 14, 2016 at 19:54 Board Certified Radiologist. This report was verified electronically.
--- NOTE | 2016-12-15 11:46 | EKG ---
Date Performed: 12/14/2016 Time Performed: 17:15:24 PTAGE: 76 years EKG: Sinus rhythm NORMAL ECG PREVIOUS TRACING : 08/07/2016 09.51 No significant change from previous tracing noted. DOCTOR: Radhames Kirk Interpretating Date/Time 12/15/2016 11:44:26
== END 2016-12-14 19:30 | disposition home or self-care (01) ==
LOC: PHED 16:18
DX: J45.901 Unspecified asthma with (acute) exacerbation (principal); R07.89 Other chest pain; E78.5 Hyperlipidemia, unspecified
CPT/HCPCS: 71010; 80048; 84484; 85025; 85610; 85730; 93005; 94640; 94664; 96374; 99284; J2930

== ENCOUNTER 2017-01-31 16:40 | Inpatient (IN) | payer OTHER, MEDICARE ==
[~2017-01-31] VITALS: Ht 165.1 cm; Wt 69.0 kg
[~2017-01-31 16:40] MED LIST changes: +ADVA500A INH; +ALBU1.25 NEB; +CIPR-9 PO; -MIRT1TAB PO; -MUCI600T PO; -OSEL75 PO; +PRED-503 PO; -SPIRCAP INH; -SYMB160A INH; +TRAM50TA PO; +VENTAER INH
[2017-01-31 16:41] VITALS: BP 171/83; PULSE 99; RESP 20; TEMP 99.1; O2SAT 98
[2017-01-31] MEDS ORDERED: SODIUM CHLORIDE 0.9% FLUSH 10 ML FLUSH IVF PRN (17:15)
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
[2017-01-31] MEDS ORDERED: methylPREDNISolone SOD SUCC 125 MG/2 ML VIAL IV PUSH ONE (17:30)
[2017-01-31] MEDS: RESP: ALBUTEROL 2.5 MG/IPRATROPIUM 0.5 MG NEB (SCH) INH (17:35)
[2017-01-31 17:37] LABS: BASOPHIL % 0.1 % (0.0-2.0); HEMATOCRIT 39.1 % (35.0-46.0); LYMPH % 10.9 % (9.0-44.0); LYMPHOCYTE # 1.3 TH/MM3 (1.0-4.8); MEAN CELL VOLUME 85.8 FL (80.0-100.0); MEAN CORPUSCULAR HEMOGLOBIN 28.5 PG (27.0-34.0); MEAN CORPUSCULAR HGB CONC 33.3 % (32.0-36.0); MONO % 5.6 % (0.0-8.0); NEUT % 83.4 % (16.0-70.0); PLATELET COUNT 269 TH/MM3 (150-450); RED BLOOD COUNT 4.56 MIL/MM3 (4.00-5.30); RED CELL DISTRIBUTION WIDTH 16.2 % (11.6-17.2)
[2017-01-31 17:40] LABS: HEMO FLAGS AUTO DIFF
--- NOTE | 2017-01-31 17:49 | RADRPT ---
EXAM DATE/TIME: 01/31/2017 17:19 [facility] COMPARISON: CHEST SINGLE AP, December 14, 2016, 17:19. INDICATIONS : Shortness of breath and chest pain. MEDICAL HISTORY : Chronic obstructive pulmonary disease. Congestive heart failure. SURGICAL HISTORY : None. ENCOUNTER: Initial ACUITY: 1 month PAIN SCORE: 3/10 LOCATION: chest FINDINGS: There is an ill-defined area of opacity in the right infrahilar region suggesting a non-consolidative infiltrate. The remainder of the lungs are clear. The heart is normal size. Both hemidiaphragms w ell delineated. Curvature of the thoracolumbar spine convex to the left. Multiple hemoclips in the low neck. CONCLUSION: Small right infrahilar infiltrate. Dev Ram MD on January 31, 2017 at 17:47 Board Certified Radiologist. This report was verified electronically.
[2017-01-31 18:17] LABS: ALKALINE PHOSPHATASE 69 U/L (45-117); ALT (GPT) 36 U/L (10-53); ANION GAP 8 MEQ/L (5-15); AST (GOT) 35 U/L (15-37); BICARBONATE 23.9 MEQ/L (21.0-32.0); BLOOD UREA NITROGEN 27 MG/DL (7-18); CHLORIDE 106 MEQ/L (98-107); CREATINE KINASE 252 U/L (26-192); GLOMERULAR FILTRATION RATE 61 ML/MIN (>89); SODIUM (NA) 138 MEQ/L (136-145); TOTAL BILIRUBIN ADULT 0.4 MG/DL (0.2-1.0)
[2017-01-31] MEDS ORDERED: AZITHROMYCIN INJ 500 MG in SODIUM CHLOR 0.9% 250 ML INJ 250 ML IV STA (18:22)
[2017-01-31] MEDS ORDERED: cefTRIAXone INJ 2,000 MG in SODIUM CHLORIDE 0.9% INJ 100 ML IV STA (18:22)
[2017-01-31 18:27] LABS: BANDS 2 % (0-6); METAMYELOCYTES 1 % (0-1); MYELOCYTES 1 % (0-0); NEUTROPHIL # MANUAL DIFF 10.2 TH/MM3 (1.8-7.7); PLATELET ESTIMATE SMEAR NORMAL (NORMAL); PLATELET MORPHOLOGY NORMAL (NORMAL); POLYS (SEG NEUTROPHILS) 81 % (16-70); SCAN/DIFF FINAL DIFF MANUAL; WBC DIFF SAMPLE 100
[2017-01-31 18:30] LABS: CKMB 1.2 NG/ML (0.5-3.6)
[2017-01-31] MEDS ORDERED: BISACODYL 10 MG SUPP RECTAL PRN (18:30)
[2017-01-31] MEDS ORDERED: SENNOSIDES 8.6 MG TAB PO PRN (18:30)
[2017-01-31] MEDS ORDERED: LACTULOSE SYRUP 20 GM/30 ML CUP PO PRN (18:30)
[2017-01-31] MEDS ORDERED: ENOXAPARIN SODIUM 40 MG/0.4 ML SYRINGE SQ SCH (18:30)
[2017-01-31] MEDS ORDERED: NALOXONE HCL 0.4 MG/ML AMP IV PUSH PRN ×2 (18:30→18:45)
[2017-01-31] MEDS ORDERED: ACETAMINOPHEN 325 MG TAB PO PRN (18:30)
[2017-01-31] MEDS ORDERED: MAGNESIUM HYDROXIDE SUSP 30 ML CUP PO PRN (18:30)
[2017-01-31] MEDS ORDERED: ONDANSETRON HCL 4 MG/2 ML VIAL IVP PRN (18:30)
[2017-01-31] MEDS ORDERED: RESP: ALBUTEROL 2.5 MG/IPRATROPIUM 0.5 MG NEB (PRN) NEB (18:45)
[2017-01-31 19:12] VITALS: BP 151/102; PULSE 107; RESP 20; O2SAT 97
[2017-01-31 20:00] VITALS: BP 124/84; PULSE 103; RESP 20; TEMP 98.7; O2SAT 95
[2017-01-31] MEDS ORDERED: SODIUM CHLOR 0.9% 1000 ML INJ 1,000 ML IV ONE (20:00)
--- NOTE | 2017-01-31 20:08 | HHI.HP ---
[facility] Pilo Alarcon MD Admission Diagnosis COPD exacerbation/possible pneumonia/failed outpatient therapy Diagnoses: (1) COPD (chronic obstructive pulmonary disease) Diagnosis: Principal (2) PNA (pneumonia) Diagnosis: Principal (3) Failure of outpatient treatment Diagnosis: Principal (4) HTN (hypertension) Diagnosis: Principal (5) Dehydration Diagnosis: Principal (6) Rhabdomyolysis Diagnosis: Principal (7) New onset a-fib Diagnosis: Principal Travel History International Travel<30 Days: No Contact w/Intl Traveler <30 Da: No Traveled to Known Affected Are: No History of Present Illness This is a 76-year-old female with a PMH of Anxiety, HTN, Hypothyroidism and COPD who presented to the ER with complaints of SOB in addition to wheezing. States symptoms have been ongoing for several weeks, follows w/ Dr. Oquendo and has been on multiple courses of Prednisone with minimal relief. Today, w/ ongoing SOB and wheezing, told by Dr. Oquendo to come to ER for evaluation. Denies fever or chills. Reports occasional cough, but nonproductive. On arrival, BP 171/83, HR 99, O2 sat 98% on RA, Temp 99.1. WBC 12.0, elevated neutrophil count. Chemistry essentially unremarkable except for mild dehydration. CPK 252. Trop negative. CXR with small right infrahilar infiltrate. S/p Rocephin/Zithro, Solu-Medrol and DuoNeb in ER. While in ER, pt noted to have episode of A-fib w/ RVR, HR 112, started on Cardizem 30mg PO q6h, HR currently 90's. Review of Systems Except as stated in HPI: all other systems reviewed are Neg ROS: 14 point review of systems otherwise negative. Past Family Social History Past Medical History PMH: Anxiety, HTN, Hypothyroidism and COPD Past Surgical History PAST SURGICAL HISTORY: Parathyroidectomy, Bladder Lift, Hysterectomy Allergies: Coded Allergies: diatrizoate meglumine (Unverified Allergy, Unknown, Shortness of Breath, ) gadobenic acid (Unverified Allergy, Unknown, Shortness of Breath, 11/21/16) gadodiamide (Unverified Allergy, Unknown, Shortness of Breath, 11/21/16) gadoteridol (Unverified Allergy, Unknown, Shortness of Breath, 11/21/16) iodixanol (Unverified Allergy, Unknown, Shortness of Breath, 11/21/16) iohexol (Unverified Allergy, Unknown, Shortness of Breath, 11/21/16) Family History PAST FAMILY HISTORY: Reviewed. No h/o DM or CAD Social History PAST SOCIAL HISTORY: Negative for alcohol, tobacco or drug screen Physical Exam Vital Signs Vital Signs Date Time Temp Pulse Resp B/P (MAP) Pulse Ox O2 Delivery O2 Flow Rate FiO2 01/31/17 19:12 107 20 151/102 (118) 97 Room Air 01/31/17 17:19 Room Air 01/31/17 17:17 97 Room Air 01/31/17 17:17 97 Room Air 01/31/17 16:41 99.1 99 20 171/83 (112) 98 Room Air Physical Exam PE: GENERAL: Very pleasant elderly white female in no acute distress. HEENT: PERRLA, EOMI. No scleral icterus or conjunctival pallor. No lid lag or facial droop. CARDIOVASCULAR: Regular rate and rhythm. No obvious murmurs to auscultation. No chest tenderness to palpation. RESPIRATORY: No obvious rhonchi. Occasional wheezing. Clear to auscultation. Breath sounds equal bilaterally. GASTROINTESTINAL: Abdomen soft, non-tender, nondistended. BS normal. MUSCULOSKELETAL: Extremities without clubbing, cyanosis, or edema. No obvious deformities. NEUROLOGICAL: Awake, alert and oriented x4. No focal neurologic deficits. Moving both upper and lower extremities spontaneously. Laboratory Laboratory Tests Test 01/31/17 17:20 01/31/17 18:30 White Blood Count 12.0 Red Blood Count 4.56 Hemoglobin 13.0 Hematocrit 39.1 Mean Corpuscular Volume 85.8 Mean Corpuscular Hemoglobin 28.5 Mean Corpuscular Hemoglobin Concent 33.3 Red Cell Distribution Width 16.2 Platelet Count 269 Mean Platelet Volume 8.1 Neutrophils (%) (Auto) 83.4 Lymphocytes (%) (Auto) 10.9 Monocytes (%) (Auto) 5.6 Eosinophils (%) (Auto) 0.0 Basophils (%) (Auto) 0.1 Neutrophils # (Auto) 10.0 Lymphocytes # (Auto) 1.3 Monocytes # (Auto) 0.7 Eosinophils # (Auto) 0.0 Basophils # (Auto) 0.0 CBC Comment AUTO DIFF Differential Total Cells Counted 100 Neutrophils % (Manual) 81 Band Neutrophils % 2 Lymphocytes % 9 Monocytes % 6 Neutrophils # (Manual) 10.2 Metamyelocytes 1 Myelocytes 1 Differential Comment FINAL DIFF MANUAL Platelet Estimate NORMAL Platelet Morphology Comment NORMAL Blood Urea Nitrogen 27 Creatinine 0.90 Random Glucose 112 Total Protein 7.0 Albumin 3.3 Calcium Level 8.8 Alkaline Phosphatase 69 Aspartate Amino Transf (AST/SGOT) 35 Alanine Aminotransferase (ALT/SGPT) 36 Total Bilirubin 0.4 Sodium Level 138 Potassium Level 5.0 Chloride Level 106 Carbon Dioxide Level 23.9 Anion Gap 8 Estimat Glomerular Filtration Rate 61 Total Creatine Kinase 252 Creatine Kinase MB 1.2 Creatine Kinase MB % 0.5 Troponin I LESS THAN 0.02 B-Type Natriuretic Peptide 88 Date/Time Source Procedure Growth Status 01/31/17 18:30 Blood Peripheral Aerobic Blood Culture Pending Received 01/31/17 18:30 Blood Peripheral Anaerobic Blood Culture Pending Received Result Diagram: 01/31/17 1720 01/31/17 1720 Caprini VTE Risk Assessment Caprini VTE Risk Assessment: Mod/High Risk (score >= 2) Caprini Risk Assessment Model Point Value = 1 Point Value = 2 Point Value = 3 Point Value = 5 Age 41-60 Minor surgery BMI > 25 kg/m2 Swollen legs Varicose veins or History of unexplained or recurrent spontaneous Oral contraceptives or hormone replacement Sepsis (< 1 month) Serious lung disease, including pneumonia (< 1 month) Abnormal pulmonary function Acute myocardial infarction Congestive heart failure (< 1 month) History of inflammatory bowel disease Medical patient at bed rest Age 61-74 Arthroscopic surgery Major open surgery (> 45 min) Laparoscopic surgery (> 45 min) Malignancy Confined to bed (> 72 hours) Immobilizing plaster cast Central venous access Age >= 75 History of VTE Family history of VTE Factor V Leiden Prothrombin [id number] Lupus anticoagulant Anticardiolipin antibodies Elevated serum homocysteine Heparin-induced thrombocytopenia Other congenital or acquired thrombophilia Stroke (< 1 month) Elective arthroplasty Hip, pelvis, or leg fracture Acute spinal cord injury (< 1 month) Prophylaxis Regimen Total Risk Factor Score Risk Level Prophylaxis Regimen 0-1 Low Early ambulation 2 Moderate Order ONE of the following: *Sequential Compression Device (SCD) *Heparin 5000 units SQ BID 3-4 Higher Order ONE of the following medications: *Heparin 5000 units SQ TID *Enoxaparin/Lovenox 40 mg SQ daily (WT < 150 kg, CrCl > 30 mL/min) *Enoxaparin/Lovenox 30 mg SQ daily (WT < 150 kg, CrCl > 10-29 mL/min) *Enoxaparin/Lovenox 30 mg SQ BID (WT < 150 kg, CrCl > 30 mL/min) AND/OR *Sequential Compression Device (SCD) 5 or more Highest Order ONE of the following medications: *Heparin 5000 units SQ TID (Preferred with Epidurals) *Enoxaparin/Lovenox 40 mg SQ daily (WT < 150 kg, CrCl > 30 mL/min) *Enoxaparin/Lovenox 30 mg SQ daily (WT < 150 kg, CrCl > 10-29 mL/min) *Enoxaparin/Lovenox 30 mg SQ BID (WT < 150 kg, CrCl > 30 mL/min) AND *Sequential Compression Device (SCD) Assessment and Plan Problem List: (1) COPD (chronic obstructive pulmonary disease) ICD Code: J44.9 - Chronic obstructive pulmonary disease, unspecified (2) Failure of outpatient treatment ICD Code: Z78.9 - Other specified health status (3) PNA (pneumonia) ICD Code: J18.9 - Pneumonia, unspecified organism (4) Rhabdomyolysis ICD Code: M62.82 - Rhabdomyolysis (5) Dehydration ICD Code: E86.0 - Dehydration (6) HTN (hypertension) ICD Code: I10 - Essential (primary) hypertension (7) New onset a-fib ICD Code: I48.91 - Unspecified atrial fibrillation Status: Acute Assessment and Plan A/P: 1. COPD: Chronic Respiratory Failure w/ Acute Exacerbation. Severe. S/p Solu -Medrol/DuoNeb in ER w/ some improvement however persistent wheezing. Continue w/ Solu-Medrol, DuoNeb, start Symbicort. 2. Failed Outpt Tx: Follows w/ Dr. Oquendo as outpatient, has been on multiple rounds of Prednisone PO w/ minimal relief, symptoms ongoing for several weeks. 3. PNA: CXR w/ small right infrahilar infiltrate, s/p Rocephin/Zithro in ER. Continue w/ IV Abx, DuoNeb prn. 4. Dehydration: GFR 61, BUN 27. Likely secondary to respiratory losses. IVF for hydration, repeat labs in am. 5. Rhabdomyolysis: Mild. CPK 252. IVF as above, repeat labs in am. 6. HTN: BP 170's, likely compounded by SOB/Respiratory distress, monitor BP. May need antihypertensives while on steroid therapy. 7. New Onset A-fib: EKG w/ A-fib w/ RVR, HR 112, started on Cardizem 30mg PO q6h, currently HR 90's. IVF as above. Check Echo. Cardiology consult as needed. 8. DVT Prophylaxis: Lovenox 9. Social work for d/c planning as needed. 10. Case discussed w/ ER physician at length Physician Certification 2 Midnight Certification Type: Admission for Inpatient Services Order for Inpatient Services The services are ordered in accordance with Medicare regulations or non- Medicare payer requirements, as applicable. In the case of services not specified as inpatient-only, they are appropriately provided as inpatient services in accordance with the 2-midnight benchmark. Estimated LOS (days): 2 days is the estimated time the patient will need to remain in the hospital, assuming treatment plan goals are met and no additional complications. Post-Hospital Plan: Not yet determined Lenora Brooks MD Jan 31, 2017 20:08
[2017-01-31] MEDS: RESP: ALBUTEROL 2.5 MG/IPRATROPIUM 0.5 MG NEB (SCH) NEB (20:13)
[2017-01-31] MEDS: SODIUM CHLORIDE 0.9% FLUSH 10 ML FLUSH IV FLUSH SCH (21:00)
[2017-01-31] MEDS: ENOXAPARIN SODIUM 80 MG/0.8 ML SYRINGE SQ SCH (22:08)
[2017-01-31] MEDS: DOCUSATE SODIUM 50 MG/SENNA 8.6 MG TAB PO SCH (22:08)
[2017-01-31] MEDS: BUDESONIDE-FORMOTEROL 160/4.5 MCG INHALER INH SCH (22:28)
[2017-02-01] VITALS (10 sets, daily range): BP systolic 119–149; BP diastolic 55–78; PULSE 58–103; RESP 18–24; TEMP 97.5–98.7; O2SAT 95–97
[2017-02-01] MEDS: methylPREDNISolone SOD SUCC 40 MG/1 ML VIAL IV PUSH SCH ×4 (00:16→17:04)
[2017-02-01] MEDS: AZITHROMYCIN INJ 500 MG in SODIUM CHLOR 0.9% 250 ML INJ 250 ML IV SCH (00:16)
[2017-02-01] MEDS: DILTIAZEM HCL 30 MG TAB PO SCH ×3 (00:16→14:09)
[2017-02-01] MEDS: RESP: ALBUTEROL 2.5 MG/IPRATROPIUM 0.5 MG NEB (SCH) NEB ×4 (08:07→21:12)
[2017-02-01 08:26] LABS: AUTOMATED NEUTROPHIL # 10.3 TH/MM3 (1.8-7.7); BASOPHIL % 0.2 % (0.0-2.0); HEMATOCRIT 37.2 % (35.0-46.0); LYMPH % 9.1 % (9.0-44.0); LYMPHOCYTE # 1.1 TH/MM3 (1.0-4.8); MEAN CELL VOLUME 86.3 FL (80.0-100.0); MEAN CORPUSCULAR HEMOGLOBIN 28.2 PG (27.0-34.0); MEAN CORPUSCULAR HGB CONC 32.6 % (32.0-36.0); MONO % 2.1 % (0.0-8.0); NEUT % 88.6 % (16.0-70.0); PLATELET COUNT 240 TH/MM3 (150-450); RED BLOOD COUNT 4.31 MIL/MM3 (4.00-5.30); RED CELL DISTRIBUTION WIDTH 16.1 % (11.6-17.2); WHITE BLOOD COUNT 11.6 TH/MM3 (4.0-11.0)
[2017-02-01 08:31] LABS: HEMO FLAGS AUTO DIFF
[2017-02-01] MEDS: BUDESONIDE-FORMOTEROL 160/4.5 MCG INHALER INH SCH ×2 (09:00→21:31)
[2017-02-01] MEDS: SODIUM CHLORIDE 0.9% FLUSH 10 ML FLUSH IV FLUSH SCH ×2 (09:00→21:32)
[2017-02-01 09:09] LABS: BICARBONATE 22.2 MEQ/L (21.0-32.0); POTASSIUM 3.8 MEQ/L (3.5-5.1)
[2017-02-01] MEDS: ENOXAPARIN SODIUM 80 MG/0.8 ML SYRINGE SQ SCH ×2 (10:05→21:32)
[2017-02-01] MEDS: DOCUSATE SODIUM 50 MG/SENNA 8.6 MG TAB PO SCH ×2 (10:05→21:32)
[2017-02-01 10:29] LABS: BANDS 2 % (0-6); METAMYELOCYTES 3 % (0-1); MYELOCYTES 3 % (0-0); NEUTROPHIL # MANUAL DIFF 10.8 TH/MM3 (1.8-7.7); PLATELET ESTIMATE SMEAR NORMAL (NORMAL); PLATELET MORPHOLOGY NORMAL (NORMAL); POLYS (SEG NEUTROPHILS) 85 % (16-70); SCAN/DIFF FINAL DIFF MANUAL; WBC DIFF SAMPLE 100
[2017-02-01] MEDS ORDERED: NON-FORMULARY DRUG (Fluticasone-Salmeterol Inh (Advair Diskus Inh) 2 PUFF) INH SCH (11:45)
--- NOTE | 2017-02-01 14:42 | HHI.PR ---
Subjective Remarks Follow-up COPD, pneumonia. Patient still feels quite short of breath. Oxygen saturations are stable on room air. She denies chest pain. Objective Vitals Vital Signs Date Time Temp Pulse Resp B/P (MAP) Pulse Ox O2 Delivery O2 Flow Rate FiO2 02/01/17 12:42 78 02/01/17 12:14 98.1 85 18 149/72 (97) 97 02/01/17 08:31 98.1 78 18 124/63 (83) 95 02/01/17 04:00 97.5 82 20 146/78 (100) 95 02/01/17 03:50 81 02/01/17 00:00 97.6 58 20 119/55 (76) 96 01/31/17 20:00 98.7 103 20 124/84 (97) 95 01/31/17 19:12 107 20 151/102 (118) 97 Room Air 01/31/17 17:19 Room Air 01/31/17 17:17 97 Room Air 01/31/17 17:17 97 Room Air 01/31/17 16:41 99.1 99 20 171/83 (112) 98 Room Air I/O 01/31/17 01/31/17 01/31/17 02/01/17 02/01/17 02/01/17 07:00 15:00 23:00 07:00 15:00 23:00 Intake Total 240 ml 100 ml Balance 240 ml 100 ml Intake Oral 240 ml IV Total 100 ml # Voids 2 2 Result Diagram: 02/01/17 0750 02/01/17 0750 Imaging Last Impressions Chest X-Ray 01/31/171712 Signed Impressions: Service Date/Time: Tuesday, January 31, 2017 17:19 - CONCLUSION: Small right infrahilar infiltrate. Dev Ram MD Objective Remarks General: Elderly female in no acute distress. Heart: Regular rate and rhythm. No murmur. Lungs: Scattered wheeze. Breathing is nonlabored. Abdomen: Soft, nontender, nondistended. Extremities: No lower extremity edema. Psych: Alert and oriented. Procedures none Urinary Catheter: No Vascular Central Line Catheter: No A/P Problem List: (1) COPD (chronic obstructive pulmonary disease) ICD Code: J44.9 - Chronic obstructive pulmonary disease, unspecified (2) Failure of outpatient treatment ICD Code: Z78.9 - Other specified health status (3) PNA (pneumonia) ICD Code: J18.9 - Pneumonia, unspecified organism (4) Rhabdomyolysis ICD Code: M62.82 - Rhabdomyolysis (5) Dehydration ICD Code: E86.0 - Dehydration (6) HTN (hypertension) ICD Code: I10 - Essential (primary) hypertension (7) New onset a-fib ICD Code: I48.91 - Unspecified atrial fibrillation Status: Acute Assessment and Plan 1. COPD exacerbation: Failed outpatient therapy. Patient continues to report significant shortness of breath, however oxygen saturations are remaining stable on room air. Consult patient's opal miner. Continue Solu-Medrol, bronchodilators. 2. Pneumonia: Continue IV antibiotics. 3. Dehydration: IV fluids. Monitor labs. 4. Mild rhabdomyolysis: Continue IV fluids. Monitor labs. 5. Hypertension: Likely worsened secondary to shortness of breath. Monitor blood pressure. 6. Atrial fibrillation: Patient has had elevated rate. Continue Cardizem. Consult cardiology. Patient sees Dr. Reed. Echocardiogram ordered. 7. DVT prophylaxis: Lovenox. Oskar Baer MD Feb 01, 2017 14:42
--- NOTE | 2017-02-01 14:49 | EKG ---
Date Performed: 01/31/2017 Time Performed: 18:05:39 PTAGE: 76 years EKG: Multifocal atrial tachycardia Compared to previous tracing the supraventricular tachycardia is new ABNORMAL RHYTHM ECG PREVIOUS TRACING : 12/14/2016 17.15 DOCTOR: Bruna Clark Interpretating Date/Time 02/01/2017 14:45:22
[2017-02-01] MEDS ORDERED: PILL SPLITTER OTHER PRN (15:00)
--- NOTE | 2017-02-01 15:47 | ECHRPT ---
Indication: Persistent atrial fibrillation CONCLUSIONS Normal left ventricular size and wall thickness. The left ventricular systolic function is normal wi th an estimated ejection fraction in the range of 55-60%. Left ventricular diastolic function parameters a re normal. No definite wall motion abnormalities. Poorly visualized. No aortic valve stenosis or regurgitation. BP: 146 / 78 HR: 82 Rhythm: Sinus MEASUREMENTS (Male / Female) Normal Values Technical Quality:Poor 2D ECHO LV Diastolic Diameter PLAX 3.9 cm 4.2 - 5.9 / 3.9 - 5.3 cm LV Systolic Diameter PLAX 3.1 cm IVS Diastolic Thickness 1.1 cm 0.6 - 1.0 / 0.6 - 0.9 cm LVPW Diastolic Thickness 1.1 cm 0.6 - 1.0 / 0.6 - 0.9 cm LV Relative Wall Thickness 0.6 LVOT Diameter 2.0 cm M-MODE Aortic Root Diameter MM 3.1 cm LA Systolic Diameter MM 4.2 cm LA Ao Ratio MM 1.4 AV Cusp Separation MM 1.3 cm DOPPLER AV Peak Velocity 185.5 cm/s AV Peak Gradient 13.8 mmHg LVOT Peak Velocity 101.0 cm/s LVOT Peak Gradient 4.1 mmHg AV Area Cont Eq pk 1.7 cm Mitral E Point Velocity 73.1 cm/s Mitral A Point Velocity 69.1 cm/s Mitral E to A Ratio 1.1 LV E' Lateral Velocity 15.0 cm/s Mitral E to LV E' Lateral Ratio 4.9 LV E' Septal Velocity 7.3 cm/s Mitral E to LV E' Septal Ratio 10.0 PV Peak Velocity 105.0 cm/s PV Peak Gradient 4.4 mmHg FINDINGS LEFT VENTRICLE Normal left ventricular size and wall thickness. The left ventricular systolic function is normal wi th an estimated ejection fraction in the range of 55-60%. Left ventricular diastolic function parameters a re normal. No definite wall motion abnormalities. RIGHT VENTRICLE Normal right ventricular size and systolic function. LEFT ATRIUM The left atrial size is normal. RIGHT ATRIUM The right atrial size is normal. ATRIAL SEPTUM Normal atrial septal thickness without atrial level shunting by limited color doppler interrogation. AORTA The aortic root and proximal ascending aorta are normal in size on limited imaging. MITRAL VALVE Structurally normal mitral valve. No mitral valve stenosis or regurgitation. AORTIC VALVE Poorly visualized. No aortic valve stenosis or regurgitation. TRICUSPID VALVE Structurally normal tricuspid valve. No tricuspid valve stenosis or regurgitation. PULMONARY VALVE The pulmonary valve is not well visualized. VESSELS The inferior vena cava is normal in size. PERICARDIUM No pericardial effusion. Radhames Kirk MD (Electronically Signed) Final Date:01 February 2017 15:46
[2017-02-01] MEDS: cefTRIAXone INJ 1,000 MG in SODIUM CHLORIDE 0.9% INJ 100 ML IV SCH (17:03)
[2017-02-01] MEDS: ASPIRIN EC 81 MG TABEC PO SCH (17:04)
[2017-02-01] MEDS: ACETAMINOPHEN/HYDROcodone 325 MG/5 MG TAB PO PRN (17:05)
--- NOTE | 2017-02-01 18:04 | MB ---
cc: RINA AMES DATE OF CONSULTATION 02/01/17 REASON FOR CONSULTATION Atrial fibrillation. HISTORY OF PRESENT ILLNESS The patient is a 76 year-old white female, followed in our office by Dr. Jayla Reed, with a history of asthma, hyperlipidemia, hypothyroidism who presented to the hospital with complaints of shortness of breath. For the past month, she has had progressively worsening shortness of breath and wheezing, despite beta bronchodilator therapy. On admission here to the hospital, she was felt to have possible atrial fibrillation on monitoring. Occasionally, for the past four weeks she has had intermittent pounding palpitations never lasting more than a few seconds to a minute. In the last month, she has also had a constant chest heaviness throughout the day. The patient denies pleurisy, paroxysmal nocturnal dyspnea, pedal edema, lightheadedness, syncope, near-syncope, fevers, cough. PAST MEDICAL HISTORY 1. Hyperlipidemia. 2. Asthma 3. Hypothyroidism. 4. Possible history of paroxysmal atrial fibrillation diagnosed in [place] two months ago. MEDICATIONS Cardiac medications at home Cardizem CD 120 mg daily. FAMILY HISTORY Noncontributory. SOCIAL HISTORY The patient denies any history of alcohol or tobacco abuse. REVIEW OF SYSTEMS As in the history of present illness, otherwise, negative or noncontributory. She also denies headache, visual changes, unilateral weakness or numbness, abdominal pain, melena, dyspepsia, bright red blood per rectum. PHYSICAL EXAMINATION VITAL SIGNS: Blood pressure 149/72 with a pulse of 78, respirations 18. GENERAL: She is a well-developed, well-nourished white female in no acute distress HEENT: Jugular venous pressure is normal. Carotid pulses are 2+ bilaterally and without bruits CHEST: Minimal expiratory wheezes. CARDIAC: Regular rhythm and rate with a grade 2/6 systolic ejection murmur heard at the base of the heart. The S2 heart sound is normal. No gallop is audible. ABDOMEN: Soft, nontender abdomen. Bowel sounds are present. There is no definite hepatosplenomegaly. EXTREMITIES: No clubbing, cyanosis or edema. CARDIOLOGY STUDIES EKG shows sinus rhythm with a possible run of multifocal atrial tachycardia or ectopic atrial tachycardia. LABORATORY DATA WBC 11.6, hemoglobin 12.2, platelets 240, potassium 3.8, BUN 20, creatinine 0.74, CK 252 with 0.5% MB fraction. Troponin less than 0.02. IMAGING STUDIES Chest x-ray shows small right infrahilar infiltrate. IMPRESSION Increasing shortness of breath, atypical chest pain in this 76-year-old white female with a history of asthma, hyperlipidemia, hypothyroidism, questionable history of paroxysmal atrial fibrillation diagnosed two months ago in [place]. I have been asked to see the patient for atrial fibrillation. Her numerous hospital monitoring strips and EKG have been reviewed. The vast majority of the rhythm strips seem to show her irregular tachycardic rhythms are either multifocal atrial tachycardia or ectopic atrial tachycardia, possibly precipitated by her unstable pulmonary status. Clinically, there is no definite evidence for acute coronary syndrome or pulmonary embolism. Despite constant chest discomfort for the past four weeks, cardiac enzymes are negative for myocardial infarction. Even if she does have paroxysmal atrial fibrillation as well, her thromboembolic risk overall appears to be low. She denies any history of hypertension, diabetes, stroke, vascular disease. Echocardiogram here in the hospital shows normal left ventricular function. There is no definite evidence for congestive heart failure. RECOMMENDATIONS 1. Continue Cardizem; change it to long-acting form and increase the dose as tolerated. 2. Daily aspirin MD RITCHIE Silva/ /3:58 PM /5:42 PM MTDD
--- NOTE | 2017-02-01 19:23 | MB ---
cc: Nicholas ETIENNE DATE OF CONSULTATION: 02/01/2017. HISTORY OF PRESENT ILLNESS: Ms. Driscoll is a 76-year-old white female whom I have followed with asthma, quite severe with pulmonary functions in the range of 35%. She has had this chronically and no prior smoking history of significance. We have been treating her as an outpatient but she was failing to respond more short of breath so came into the emergency room yesterday. On presentation, she was quite dyspneic and received several aerosol treatments and IV corticosteroids, improved and was admitted to the floor. Initial white count was 12,000, BUN and creatinine normal. Total CK was elevated but troponins were normal and BNP was low at 88. EKG did pickling grader atrial fibrillation that was apparently new. The patient says she has never had any previous cardiac problems. She had an echocardiogram already today which was interpreted as normal with an ejection fraction of 55-60%. No wall motion abnormalities. No left ventricular diastolic changes and a normal right ventricle. No elevation in pulmonary artery pressure was noted. She is feeling a little better today but she says her chest is still tight. She has had a cough but no purulent sputum. No hemoptysis. No chest pain. No pleurisy. No swelling in her legs. No recent travel of significance. No clinical history to suggest thromboembolic disease. Initial chest x-ray reveals hazy right infrahilar density, possible pneumonia. PAST MEDICAL HISTORY: 1. Hypertension. 2. Hypothyroidism. 3. Previous parathyroidectomy. 4. A bladder lift procedure. 5. A hysterectomy. ALLERGIES: IODINATED DYES DOCUMENTED ABOUT 20 OR 30 YEARS AGO. THE REACTION WAS SHORTNESS OF BREATH. SOCIAL HISTORY: No tobacco use. No alcohol use. REVIEW OF SYSTEMS: As noted above. No recent gastrointestinal symptoms. No presyncopal symptoms. No fever. PHYSICAL EXAMINATION: VITAL SIGNS: 97 degrees, pulse is 80 now regular, respirations 18, blood pressure 120/55 and sat on room air is 95%. HEAD, EYES, EARS, NOSE, THROAT: The sclerae are nonicteric. The mucous membranes are moist. NECK: The neck veins are flat. CHEST: Diffuse wheezing throughout both lungs. No congestion. No audible rales. HEART: Regular heart rhythm. No harsh murmur or S3. EXTREMITIES: No peripheral edema or calf tenderness. No cyanosis or clubbing. Ms. Driscoll presents with persistent asthma, atrial fibrillation which is apparently new and a small right infrahilar infiltrate. I suspect she has a little pneumonia. She has been started on antibiotics. She clearly is having persistent exacerbation of her asthma and had failed outpatient therapy. The atrial fibrillation raises some concern for the possibility of thromboembolic disease but she has apparently a significant dye allergy and echocardiogram at least at this point reveals no right-sided pressure changes or dysfunction. For the atrial fibrillation, she was started on full-dose Lovenox as well, so at least at this point, she is protected. I am going to order Dopplers of her legs initially which will be a safer approach and only proceed to CT if absolutely necessary. She did tell me that after the reaction she had several decades ago, she had an IVP, was pre-treated and did well with that. However, given her current compromised pulmonary status, I think it would be perales to avoid any IV iodinated dye unless absolutely necessary. Further diagnostic and/or therapeutic intervention will depend on her ongoing clinical course and response to therapy. R. MD BENNETT Buck/RONNIE /5:02 PM /7:10 PM
[2017-02-01] MEDS ORDERED: DILTIAZEM-CD 240 MG CAP ER PO SCH (20:00)
--- NOTE | 2017-02-01 21:05 | RADRPT ---
EXAM DATE/TIME: 02/01/2017 18:56 [facility] COMPARISON: No previous studies available for comparison. INDICATIONS : Chest pain, shortness of breath. MEDICAL HISTORY : Thyroid disease. Dyslipidemia. CAD. Hypercholesterol. Afib. COPD. Kidney stone. SURGICAL HISTORY : Parathyroid surgery. Kidney stones removed. Bladder surgery. ENCOUNTER: Initial ACUITY: 1 month PAIN SCORE: 4/10 LOCATION: Bilateral legs. TECHNIQUE: Venous ultrasound of the left and right leg was performed from the inguinal ligament to the proximal calf. Real-time, color Doppler and spectral tracing, compression and augmentation techniques were us ed. FINDINGS: RIGHT LEG: There is normal compressibility of the deep venous system from the inguinal region to the proximal ca lf. No echogenic clot is seen in the lumen of the common femoral, femoral, popliteal, and posterior tibial veins. There is a normal response of the venous system to proximal and distal augmentation an d respiration. LEFT LEG: There is normal compressibility of the deep venous system from the inguinal region to the proximal ca lf. No echogenic clot is seen in the lumen of the common femoral, femoral, popliteal, and posterior tibial veins. There is a normal response of the venous system to proximal and distal augmentation an d respiration. CONCLUSION: Normal examination. Gaurav Wells MD on February 01, 2017 at 21:03 Board Certified Radiologist. This report was verified electronically.
[2017-02-01] MEDS: MIRTAZAPINE 15 MG TAB PO SCH (21:32)
[2017-02-02] VITALS (8 sets, daily range): BP systolic 139–163; BP diastolic 63–86; PULSE 75–110; RESP 18–24; TEMP 97.7–98.9; O2SAT 94–100
[2017-02-02] MEDS: methylPREDNISolone SOD SUCC 40 MG/1 ML VIAL IV PUSH SCH ×4 (00:59→18:25)
[2017-02-02] MEDS: AZITHROMYCIN INJ 500 MG in SODIUM CHLOR 0.9% 250 ML INJ 250 ML IV SCH ×2 (00:59→23:57)
[2017-02-02] MEDS: ACETAMINOPHEN/HYDROcodone 325 MG/5 MG TAB PO PRN ×3 (01:04→14:09)
[2017-02-02] MEDS: SODIUM CHLORIDE 0.9% FLUSH 10 ML FLUSH IV FLUSH PRN (05:16)
--- NOTE | 2017-02-02 08:15 | PD.CARD.PN ---
Subjective Subjective Remarks Dyspnea improving. Constant chest heaviness persists. No pleurisy, palpitations, dizziness. Objective Medications Item Value Date Time Diltiazem HCl 240 mg 02/01/171999 (Cardizem Cd) DAILY/PO 02/01/171999 Aspirin 162 mg 02/01/17 1615 (Ecotrin Ec) DAILY/PO 02/01/17 170 Enoxaparin Sodium 70 mg 01/31/17 2100 (Lovenox Inj) Q12HR/SQ 02/01/172131 Current Medications Medications (Trade) Dose Ordered Sig/Rocky Route Start Time Stop Time Status Last Admin (NS Flush) 2 ml UNSCH PRN IV FLUSH 01/31/17 18:30 02/02/17 05:16 (NS Flush) 2 ml BID IV FLUSH 01/31/17 21:00 02/01/17 21:32 (Tylenol) 650 mg Q4H PRN PO 01/31/17 18:30 (Zofran Inj) 4 mg Q6H PRN IVP 01/31/17 18:30 (Debbi-Colace) 1 tab BID PO 01/31/17 21:00 02/01/17 21:32 (Milk Of Magnesia Liq) 30 ml Q12H PRN PO 01/31/17 18:30 (Senokot) 17.2 mg Q12H PRN PO 01/31/17 18:30 (Dulcolax Supp) 10 mg DAILY PRN RECTAL 01/31/17 18:30 (Lactulose Liq) 30 ml DAILY PRN PO 01/31/17 18:30 (SoluMEDROL INJ) 40 mg Q6HR IV PUSH 02/01/17 00:00 02/02/17 05:15 (Duoneb Neb) 1 ampule Q4HR WHILE AWAKE NEB NEB 01/31/17 20:00 02/01/17 21:12 (Duoneb Neb) 1 ampule Q2HR NEB PRN NEB 01/31/17 18:45 Azithromycin 500 mg/Sodium Chloride 250 ml @ 250 mls/hr Q24H IV 02/01/17 00:00 02/02/17 00:59 Ceftriaxone Sodium 1000 mg/ Sodium Chloride 100 ml @ 200 mls/hr Q24H IV 02/01/17 18:00 02/01/17 17:03 (Lovenox Inj) 70 mg Q12HR SQ 01/31/17 21:00 02/01/17 21:32 (Narcan Inj) 0.4 mg UNSCH PRN IV PUSH 01/31/17 18:45 (Symbicort 160-4.5 Inh) 2 puff Q12HR INH 01/31/17 21:00 02/01/17 21:31 (Remeron) 7.5 mg HS PO 02/01/17 21:00 02/01/17 21:32 ([place] 5-325 Mg) 1 tab Q6H PRN PO 02/01/17 14:45 02/02/17 06:59 (Pill Splitter) 1 ea UNSCH PRN OTHER 02/01/17 15:00 (Ecotrin Ec) 162 mg DAILY PO 02/01/17 16:15 02/01/17 17:04 (Cardizem Cd) 240 mg DAILY PO 02/01/17 20:00 02/01/17 20:00 Vital Signs / I&O Vital Signs Date Time Temp Pulse Resp B/P (MAP) Pulse Ox O2 Delivery O2 Flow Rate FiO2 02/02/17 04:42 98.1 87 20 147/74 (98) 96 02/02/17 01:20 97.7 96 24 156/75 (102) 100 02/01/17 21:16 95 02/01/17 21:03 98.7 103 24 144/64 (90) 95 02/01/17 20:02 101 02/01/17 16:32 97.9 88 18 148/70 (96) 95 02/01/17 12:42 78 02/01/17 12:14 98.1 85 18 149/72 (97) 97 02/01/17 08:31 98.1 78 18 124/63 (83) 95 I/O 02/01/17 02/01/17 02/01/17 02/02/17 02/02/17 02/02/17 07:00 15:00 23:00 07:00 15:00 23:00 Intake Total 100 ml 720 ml 250 ml Balance 100 ml 720 ml 250 ml Intake Oral 720 ml IV Total 100 ml 250 ml # Voids 2 5 1 # Bowel Movements 1 Physical Exam GENERAL: Well developed, well nourished. No acute distress. HEENT: Jugular venous pressure is normal. CHEST: Diminished breath sounds diffusely. CARDIAC: Regular rate and rhythm without S3, S4. II/ DENIS base. Normal S2. ABDOMEN: Soft, nontender, no hepatosplenomegaly. Bowel sounds present. EXTREMITIES: No clubbing, cyanosis, or edema. Imaging Last 48 hours Impressions Lower Extremity Ultrasound 02/01/17 0000 Signed Impressions: Service Date/Time: January 18:56 - CONCLUSION: Normal examination. Gaurav Wells MD Chest X-Ray 01/31/17 1713 Signed Impressions: Service Date/Time: Tuesday, January 31, 2017 17:19 - CONCLUSION: Small right infrahilar infiltrate. Dev Ram MD Assessment and Plan Problem List: (1) Paroxysmal atrial tachycardia ICD Codes: I47.1 - Supraventricular tachycardia Status: Acute Plan: Continued salvoes of what appear to be either ectopic atrial tachycardia or multifocal atrial tachycardia. Suspect episodes will improve with treatment of her pulmonary problems. Echo unremarkable. REC increase Cardizem CD dosing to 360 mg qd, continue daily aspirin will have coverage see patient PRN over the weekend (2) Chest pain ICD Codes: R07.9 - Chest pain, unspecified Status: Chronic Plan: Unchanged constant chest heaviness for past month, suspect more related to her asthma. Negative cardiac enzymes despite such prolonged CP. (3) Paroxysmal atrial fibrillation ICD Codes: I48.0 - Paroxysmal atrial fibrillation Status: Resolved Plan: Questionable history of paroxysmal atrial fib diagnosed in [place] couple months ago. No definite atrial fib, but rather atrial tachycardia, seen on monitoring here. Patient's thromboembolic risk overall low. Normal LV function by echo. REC continue Cardizem, daily aspirin Code Status full code Discussed Condition With patient Problem Qualifiers (1) Chest pain: Qualified Codes: R07.9 - Chest pain, unspecified Radhames Kirk MD Feb 02, 2017 08:15
[2017-02-02] MEDS: BUDESONIDE-FORMOTEROL 160/4.5 MCG INHALER INH SCH ×2 (08:31→21:36)
[2017-02-02] MEDS: ENOXAPARIN SODIUM 80 MG/0.8 ML SYRINGE SQ SCH ×2 (08:32→21:35)
[2017-02-02] MEDS: DOCUSATE SODIUM 50 MG/SENNA 8.6 MG TAB PO SCH ×2 (08:32→21:34)
[2017-02-02] MEDS: ASPIRIN EC 81 MG TABEC PO SCH (08:32)
[2017-02-02] MEDS: RESP: ALBUTEROL 2.5 MG/IPRATROPIUM 0.5 MG NEB (SCH) NEB ×4 (08:58→20:00)
[2017-02-02] MEDS: SODIUM CHLORIDE 0.9% FLUSH 10 ML FLUSH IV FLUSH SCH ×2 (09:00→21:00)
[2017-02-02] MEDS ORDERED: WALKER WHEELS/F1 MIS (09:07)
[2017-02-02 11:40] LABS: AUTOMATED NEUTROPHIL # 18.6 TH/MM3 (1.8-7.7); BASOPHIL % 0.1 % (0.0-2.0); HEMATOCRIT 37.7 % (35.0-46.0); LYMPH % 5.4 % (9.0-44.0); LYMPHOCYTE # 1.1 TH/MM3 (1.0-4.8); MEAN CELL VOLUME 87.6 FL (80.0-100.0); MEAN CORPUSCULAR HEMOGLOBIN 28.1 PG (27.0-34.0); MONO % 3.7 % (0.0-8.0); NEUT % 90.8 % (16.0-70.0); PLATELET COUNT 235 TH/MM3 (150-450); RED CELL DISTRIBUTION WIDTH 16.4 % (11.6-17.2); WHITE BLOOD COUNT 20.5 TH/MM3 (4.0-11.0)
[2017-02-02 11:47] LABS: HEMO FLAGS AUTO DIFF
[2017-02-02] MEDS: DILTIAZEM-CD 180 MG CAP ER PO SCH (11:59)
[2017-02-02 12:01] LABS: BICARBONATE 20.4 MEQ/L (21.0-32.0); POTASSIUM 3.8 MEQ/L (3.5-5.1)
[2017-02-02 12:34] LABS: BANDS 6 % (0-6); METAMYELOCYTES 1 % (0-1); MYELOCYTES 2 % (0-0); NEUTROPHIL # MANUAL DIFF 19.3 TH/MM3 (1.8-7.7); PLATELET ESTIMATE SMEAR NORMAL (NORMAL); PLATELET MORPHOLOGY NORMAL (NORMAL); POLYS (SEG NEUTROPHILS) 85 % (16-70); SCAN/DIFF FINAL DIFF MANUAL; WBC DIFF SAMPLE 100
[2017-02-02 12:45] LABS: FREE T3 1.48 PG/ML (2.18-3.98); FREE T4 0.81 NG/DL (0.76-1.46)
[2017-02-02] MEDS ORDERED: NS + KCL 20 MEQ INJ 1,000 ML IV SCH (16:30)
--- NOTE | 2017-02-02 16:34 | HHI.PR ---
Subjective Remarks Written by Ester Hale, acting as scribe for Dr. Baer on 02/02/17 at 16:25. Follow up on patient with asthma exacerbation and PNA. Patient seen and examined. Patient reports persistent dyspnea with minimal exertion. She denies any dyspnea at rest or when sleeping. She also reports continued chest tightness. She denies any other complaints at this time. O2 sats remain stable on room air at rest. Objective Vitals Vital Signs Date Time Temp Pulse Resp B/P (MAP) Pulse Ox O2 Delivery O2 Flow Rate FiO2 02/02/17 13:07 98.9 104 18 139/76 (97) 94 02/02/17 09:00 96 02/02/17 08:12 98.3 78 18 161/86 (111) 96 02/02/17 08:00 110 02/02/17 04:42 98.1 87 20 147/74 (98) 96 02/02/17 01:20 97.7 96 24 156/75 (102) 100 02/01/17 21:16 95 02/01/17 21:03 98.7 103 24 144/64 (90) 95 02/01/17 20:02 101 02/01/17 16:32 97.9 88 18 148/70 (96) 95 I/O 02/01/17 02/01/17 02/01/17 02/02/17 02/02/17 02/02/17 07:00 15:00 23:00 07:00 15:00 23:00 Intake Total 100 ml 720 ml 250 ml 480 ml Balance 100 ml 720 ml 250 ml 480 ml Intake Oral 720 ml 480 ml IV Total 100 ml 250 ml # Voids 2 5 1 3 # Bowel Movements 1 Result Diagram: 02/02/17 1005 02/02/17 1005 Imaging Last Impressions Lower Extremity Ultrasound 02/01/17 0000 Signed Impressions: Service Date/Time: January 18:56 - CONCLUSION: Normal examination. Gaurav Wells MD Chest X-Ray 01/31/17 1713 Signed Impressions: Service Date/Time: Tuesday, January 31, 2017 17:19 - CONCLUSION: Small right infrahilar infiltrate. Dev Ram MD Objective Remarks General: Elderly female in no acute distress. Lying in hospital bed, awake and alert. Heart: Regular rate and rhythm. No murmur. Lungs: Decreased air entry. Scattered wheeze. Breathing is nonlabored. Abdomen: Soft, nontender, nondistended. Extremities: No lower extremity edema. Psych: Alert and oriented. Procedures none Medications and IVs Current Medications Medications (Trade) Dose Ordered Sig/Rocky Route Start Time Stop Time Status Last Admin (NS Flush) 2 ml UNSCH PRN IV FLUSH 01/31/17 18:30 02/02/17 05:16 (NS Flush) 2 ml BID IV FLUSH 01/31/17 21:00 02/02/17 09:00 (Tylenol) 650 mg Q4H PRN PO 01/31/17 18:30 (Zofran Inj) 4 mg Q6H PRN IVP 01/31/17 18:30 (Debbi-Colace) 1 tab BID PO 01/31/17 21:00 02/02/17 08:32 (Milk Of Magnesia Liq) 30 ml Q12H PRN PO 01/31/17 18:30 (Senokot) 17.2 mg Q12H PRN PO 01/31/17 18:30 (Dulcolax Supp) 10 mg DAILY PRN RECTAL 01/31/17 18:30 (Lactulose Liq) 30 ml DAILY PRN PO 01/31/17 18:30 (Duoneb Neb) 1 ampule Q2HR NEB PRN NEB 01/31/17 18:45 Azithromycin 500 mg/Sodium Chloride 250 ml @ 250 mls/hr Q24H IV 02/01/17 00:00 02/02/17 00:59 Ceftriaxone Sodium 1000 mg/ Sodium Chloride 100 ml @ 200 mls/hr Q24H IV 02/01/17 18:00 02/01/17 17:03 (Lovenox Inj) 70 mg Q12HR SQ 01/31/17 21:00 02/02/17 08:32 (Narcan Inj) 0.4 mg UNSCH PRN IV PUSH 01/31/17 18:45 (Symbicort 160-4.5 Inh) 2 puff Q12HR INH 01/31/17 21:00 02/02/17 08:31 (Remeron) 7.5 mg HS PO 02/01/17 21:00 02/01/17 21:32 ([place] 5-325 Mg) 1 tab Q6H PRN PO 02/01/17 14:45 02/02/17 14:09 (Pill Splitter) 1 ea UNSCH PRN OTHER 02/01/17 15:00 (Ecotrin Ec) 162 mg DAILY PO 02/01/17 16:15 02/02/17 08:32 (Cardizem Cd) 360 mg DAILY PO 02/02/17 09:00 02/02/17 11:59 (Duoneb Neb) 1 ampule QID NEB NEB 02/02/17 16:00 02/02/17 15:37 (SoluMEDROL INJ) 40 mg TID IV PUSH 02/02/17 18:00 A/P Problem List: (1) COPD (chronic obstructive pulmonary disease) ICD Code: J44.9 - Chronic obstructive pulmonary disease, unspecified (2) Failure of outpatient treatment ICD Code: Z78.9 - Other specified health status (3) PNA (pneumonia) ICD Code: J18.9 - Pneumonia, unspecified organism (4) Rhabdomyolysis ICD Code: M62.82 - Rhabdomyolysis (5) Dehydration ICD Code: E86.0 - Dehydration (6) HTN (hypertension) ICD Code: I10 - Essential (primary) hypertension (7) New onset a-fib ICD Code: I48.91 - Unspecified atrial fibrillation Status: Acute Assessment and Plan 1. Asthma exacerbation: Failed outpatient therapy. Patient continues to report significant shortness of breath, however oxygen saturations are remaining stable on room air. Dr. Oquendo following, appreciate his assistance. Patient with PFT as outpatient showing lung function of 35%. Continue Solu-Medrol, bronchodilators. Plan for home oxygen walk test prior to discharge. 2. Pneumonia: Continue IV antibiotics. 3. Dehydration: Resume IV fluids. Monitor labs. 4. Mild rhabdomyolysis: Resolved. 5. Hypertension: Likely worsened secondary to shortness of breath. Monitor blood pressure. Improved. 6. Atrial fibrillation: Patient has had elevated rate. Continue Cardizem. Cardiology following, appreciate recommendations - Cardizem CD dose increased. Echo unremarkable. 7. Low TSH: Follow up Free T4 WNL and Free T3 low. Unlikely significant. Recommend repeat thyroid function testing in 6-8 weeks with PCP. 8. Hyperglycemia: Likely related to IV steroids. No reported history of diabetes. Obtain Hgb A1c. Continue accucheck and begin ISS. 9. DVT prophylaxis: Lovenox. This note was transcribed by terese Hale. I, Dr. Oskar Baer personally performed the history, physical exam, and medical decision making; and confirmed the accuracy of the information in the transcribed note. Authenticated by Dr. Oskar Baer on 02/02/17 at 16:39. Ester Hale Feb 02, 2017 16:34 Oskar Baer MD Feb 02, 2017 16:39
[2017-02-02] MEDS ORDERED: DEXTROSE 50% IN WATER 50 ML VIAL(D50) IV PUSH PRN (16:45)
[2017-02-02] MEDS ORDERED: GLUCAGON 1 MG/ML VIAL OTHER PRN (16:45)
[2017-02-02] MEDS: INSULIN ASPART SUPPLEMENTAL SCALE SQ SCH ×2 (18:15→21:00)
[2017-02-02] MEDS: cefTRIAXone INJ 1,000 MG in SODIUM CHLORIDE 0.9% INJ 100 ML IV SCH (18:16)
[2017-02-02 21:18] LABS: HEMOGLOBIN A1a 1.5 %; HEMOGLOBIN A1b 2.3 %; HEMOGLOBIN Ao 81.9 %; HEMOGLOBIN LA1C 2.7 %; HEMOGLOBIN P3 4.7 %
[2017-02-02] MEDS: MIRTAZAPINE 15 MG TAB PO SCH (21:35)
[2017-02-03] VITALS (11 sets, daily range): BP systolic 94–172; BP diastolic 58–82; PULSE 72–97; RESP 18–20; TEMP 97.6–98.7; O2SAT 94–98
[2017-02-03] MEDS: CALCIUM CARBONATE 500 MG CHEWABLE TAB CHEW PRN ×2 (02:16→05:01)
[2017-02-03] MEDS: ACETAMINOPHEN/HYDROcodone 325 MG/5 MG TAB PO PRN ×2 (02:17→16:57)
[2017-02-03] MEDS: INSULIN ASPART SUPPLEMENTAL SCALE SQ SCH ×4 (08:00→21:00)
[2017-02-03] MEDS: RESP: ALBUTEROL 2.5 MG/IPRATROPIUM 0.5 MG NEB (SCH) NEB ×4 (08:05→19:50)
[2017-02-03] MEDS: DILTIAZEM-CD 180 MG CAP ER PO SCH (08:46)
[2017-02-03] MEDS: methylPREDNISolone SOD SUCC 40 MG/1 ML VIAL IV PUSH SCH ×3 (08:46→18:33)
[2017-02-03] MEDS: ASPIRIN EC 81 MG TABEC PO SCH (08:46)
[2017-02-03] MEDS: BUDESONIDE-FORMOTEROL 160/4.5 MCG INHALER INH SCH ×2 (08:47→21:28)
[2017-02-03] MEDS: DOCUSATE SODIUM 50 MG/SENNA 8.6 MG TAB PO SCH ×2 (08:47→21:00)
[2017-02-03] MEDS: SODIUM CHLORIDE 0.9% FLUSH 10 ML FLUSH IV FLUSH SCH ×2 (08:48→21:27)
--- NOTE | 2017-02-03 10:03 | HHI.PR ---
Subjective Remarks 02/03 Patient is on room air oxygen however she reports SOB with minimal exertion. Afebrile. Objective Vital Signs Vital Signs Date Time Temp Pulse Resp B/P (MAP) Pulse Ox O2 Delivery O2 Flow Rate FiO2 02/03/17 08:14 98.3 82 18 145/76 (99) 94 02/03/17 08:07 98 21 02/03/17 04:30 98.0 81 20 144/70 (94) 96 02/03/17 04:00 98.2 79 18 94/67 (76) 97 02/03/17 02:00 97.6 93 20 172/72 (105) 95 02/03/17 00:00 98.1 82 18 156/82 (106) 95 02/02/17 20:00 98.3 85 18 163/86 (111) 94 02/02/17 16:45 98.2 75 18 142/63 (89) 95 02/02/17 15:09 18 02/02/17 13:07 98.9 104 18 139/76 (97) 94 I/O 02/02/17 02/02/17 02/02/17 02/03/17 02/03/17 02/03/17 07:00 15:00 23:00 07:00 15:00 23:00 Intake Total 250 ml 480 ml Balance 250 ml 480 ml Intake Oral 480 ml IV Total 250 ml # Voids 1 3 4 Result Diagram: 02/02/17 1005 02/02/17 1005 Other Results Last Impressions Lower Extremity Ultrasound 02/01/17 0000 Signed Impressions: Service Date/Time: January 18:56 - CONCLUSION: Normal examination. Gaurav Wells MD Chest X-Ray 01/31/17 6233 Signed Impressions: Service Date/Time: Tuesday, January 31, 2017 17:19 - CONCLUSION: Small right infrahilar infiltrate. Dev Ram MD Objective Remarks GENERAL: Patient is 67 yo leying in bed in NAD however she reports SOB SKIN: Warm and dry. HEAD: Normocephalic. EYES: No scleral icterus. No injection or drainage. NECK: Supple, trachea midline. No JVD or lymphadenopathy. CARDIOVASCULAR: Regular rate and rhythm without murmurs, gallops, or rubs. RESPIRATORY: Breath sounds equal bilaterally. No accessory muscle use. GASTROINTESTINAL: Abdomen soft, non-tender, nondistended. MUSCULOSKELETAL: No cyanosis, or edema. BACK: Nontender without obvious deformity. No CVA tenderness. Neuro: Awake and alert A/P Assessment and Plan 1)Dyspnea 2)Asthmatic bronchitis 3)RLL infiltrate 4)Approximal Atrial tachycardia 5)Leukocytosis 6)HTN Plan Oxygen PRN keep sat >92% Bronchodilators ( Duoneb, Symbicort) Continue with Solumedrol 40mg TID Check CXR today PFT as outpatient to asses severity of her obstructive lung disease Continue with abx( Rocephin, Zithromax) Echo showed EF 55-60%, normal diastolic parameters. Cards is following- Dr. Hardin Doppler US negative for DVT GI/DVT prophylaxis per primary team. Discussed with Alejandro Garza MD Feb 03, 2017 10:03
--- NOTE | 2017-02-03 10:56 | RADRPT ---
EXAM DATE/TIME: 02/03/2017 11:05 [facility] COMPARISON: CHEST SINGLE AP, January 31, 2017, 17:19. INDICATIONS : Pneumonia, short of breath and cough. MEDICAL HISTORY : Chronic obstructive pulmonary disease. SURGICAL HISTORY : Parathyroid ENCOUNTER: Subsequent ACUITY: 1 month PAIN SCORE: 0/10 LOCATION: Bilateral chest FINDINGS: The heart remains enlarged. Perihilar infiltrates are noted. Surgical clips are again noted within the lower neck. CONCLUSION: 1. Perihilar infiltrates which are slightly worse than on the previous examination. 2. Cardiomegaly. Leighton Dutta MD on February 03, 2017 at 10:49 Board Certified Radiologist. This report was verified electronically.
[2017-02-03] MEDS ORDERED: BUMETANIDE INJ 1 MG/4 ML VIAL IV PUSH ONE (11:45)
[2017-02-03] MEDS: ENOXAPARIN SODIUM 40 MG/0.4 ML SYRINGE SQ SCH (13:05)
--- NOTE | 2017-02-03 13:54 | HHI.PR ---
Subjective Remarks Written by Ester Hale, acting as scribe for Dr. Baer on 02/03/17 at 13:53. Follow up on patient with asthma exacerbation and PNA. Patient seen and examined. She is unchanged from yesterday. Persistent dyspnea with minimal exertion. Denies any cough. Does report chest tightness has improved some. Denies any fever or chills. O2 sats 95% on RA. Objective Vitals Vital Signs Date Time Temp Pulse Resp B/P (MAP) Pulse Ox O2 Delivery O2 Flow Rate FiO2 02/03/17 12:24 98.0 72 18 150/69 (96) 95 02/03/17 08:14 98.3 82 18 145/76 (99) 94 02/03/17 08:07 98 21 02/03/17 04:30 98.0 81 20 144/70 (94) 96 02/03/17 04:00 98.2 79 18 94/67 (76) 97 02/03/17 02:00 97.6 93 20 172/72 (105) 95 02/03/17 00:00 98.1 82 18 156/82 (106) 95 02/02/17 20:00 98.3 85 18 163/86 (111) 94 02/02/17 16:45 98.2 75 18 142/63 (89) 95 02/02/17 15:09 18 I/O 02/02/17 02/02/17 02/02/17 02/03/17 02/03/17 02/03/17 06:59 14:59 22:59 06:59 14:59 22:59 Intake Total 250 ml 480 ml Balance 250 ml 480 ml Intake Oral 480 ml IV Total 250 ml # Voids 1 3 4 Result Diagram: 02/02/17 1005 02/02/17 1005 Imaging Last Impressions Chest X-Ray 02/03/17 0000 Signed Impressions: Service Date/Time: Friday, February 03, 2017 11:05 - CONCLUSION: 1. Perihilar infiltrates which are slightly worse than on the previous examination. 2. Cardiomegaly. Leighton Dutta MD Lower Extremity Ultrasound 02/01/17 0000 Signed Impressions: Service Date/Time: January 18:56 - CONCLUSION: Normal examination. Gaurav Wells MD Objective Remarks General: Elderly female in no acute distress. Sitting in bedside chair. Awake and alert. Heart: Regular rate and rhythm. No murmur. Lungs: Decreased air entry. Scattered wheeze. Breathing is nonlabored. Abdomen: Soft, nontender, nondistended. Extremities: No lower extremity edema. Psych: Alert and oriented. Procedures none Medications and IVs Current Medications Medications (Trade) Dose Ordered Sig/Rocky Route Start Time Stop Time Status Last Admin (NS Flush) 2 ml UNSCH PRN IV FLUSH 01/31/17 18:30 02/02/17 05:16 (NS Flush) 2 ml BID IV FLUSH 01/31/17 21:00 02/03/17 08:48 (Tylenol) 650 mg Q4H PRN PO 01/31/17 18:30 (Zofran Inj) 4 mg Q6H PRN IVP 01/31/17 18:30 (Debbi-Colace) 1 tab BID PO 01/31/17 21:00 02/03/17 08:47 (Milk Of Magnesia Liq) 30 ml Q12H PRN PO 01/31/17 18:30 (Senokot) 17.2 mg Q12H PRN PO 01/31/17 18:30 (Dulcolax Supp) 10 mg DAILY PRN RECTAL 01/31/17 18:30 (Lactulose Liq) 30 ml DAILY PRN PO 01/31/17 18:30 (Duoneb Neb) 1 ampule Q2HR NEB PRN NEB 01/31/17 18:45 Azithromycin 500 mg/Sodium Chloride 250 ml @ 250 mls/hr Q24H IV 02/01/17 00:00 02/02/17 23:57 Ceftriaxone Sodium 1000 mg/ Sodium Chloride 100 ml @ 200 mls/hr Q24H IV 02/01/17 18:00 02/02/17 18:16 (Narcan Inj) 0.4 mg UNSCH PRN IV PUSH 01/31/17 18:45 (Symbicort 160-4.5 Inh) 2 puff Q12HR INH 01/31/17 21:00 02/03/17 08:47 (Remeron) 7.5 mg HS PO 02/01/17 21:00 02/02/17 21:35 ([place] 5-325 Mg) 1 tab Q6H PRN PO 02/01/17 14:45 02/03/17 02:17 (Pill Splitter) 1 ea UNSCH PRN OTHER 02/01/17 15:00 (Ecotrin Ec) 162 mg DAILY PO 02/01/17 16:15 02/03/17 08:46 (Cardizem Cd) 360 mg DAILY PO 02/02/17 09:00 02/03/17 08:46 (Duoneb Neb) 1 ampule QID NEB NEB 02/02/17 16:00 02/03/17 08:05 (SoluMEDROL INJ) 40 mg TID IV PUSH 02/02/17 18:00 02/03/17 13:05 (D50w (Vial) Inj) 50 ml UNSCH PRN IV PUSH 02/02/17 16:45 (Glucagon Inj) 1 mg UNSCH PRN OTHER 02/02/17 16:45 (NovoLOG SUPPLEMENTAL SCALE) 1 ACHS SLIDING SCALE SQ 02/02/17 17:00 02/03/17 12:00 (Tums Chew) 500 mg Q2H PRN CHEW 02/03/17 02:15 02/03/17 05:01 (Lovenox Inj) 40 mg Q24H SQ 02/03/17 11:00 02/03/17 13:05 A/P Problem List: (1) COPD (chronic obstructive pulmonary disease) ICD Code: J44.9 - Chronic obstructive pulmonary disease, unspecified (2) Failure of outpatient treatment ICD Code: Z78.9 - Other specified health status (3) PNA (pneumonia) ICD Code: J18.9 - Pneumonia, unspecified organism (4) Rhabdomyolysis ICD Code: M62.82 - Rhabdomyolysis (5) Dehydration ICD Code: E86.0 - Dehydration (6) HTN (hypertension) ICD Code: I10 - Essential (primary) hypertension (7) New onset a-fib ICD Code: I48.91 - Unspecified atrial fibrillation Status: Acute Assessment and Plan 1. Asthma exacerbation: Failed outpatient therapy. Patient continues to report significant shortness of breath, however oxygen saturations are remaining stable on room air. Pulmonology following, appreciate his assistance. Patient with PFT as outpatient showing lung function of 35%. Continue Solu-Medrol, bronchodilators. BLE dopplers negative for DVT. 2. Pneumonia: Continue IV antibiotics. Repeat CXR personally interpreted showing worsening of perihilar infiltrates. IVF discontinued and patient given dose of Bumex per Pulm. 3. Dehydration: Resolved. 4. Mild rhabdomyolysis: Resolved. 5. Hypertension: Likely worsened secondary to shortness of breath. Monitor blood pressure. 6. Atrial fibrillation: Patient has had elevated rate. Continue Cardizem. Cardiology following, appreciate recommendations - Cardizem CD dose increased. Echo unremarkable. 7. Low TSH: Follow up Free T4 WNL and Free T3 low. Unlikely significant. Recommend repeat thyroid function testing in 6-8 weeks with PCP. 8. Hyperglycemia: Likely related to IV steroids. No reported history of diabetes. Hgb A1c 6.5. Continue accucheck and ISS. 9. DVT prophylaxis: Lovenox. Discharge Planning Plan for discharge to [facility]. Pending clearance from Pulmonary standpoint. This note was transcribed by terese Hale. I, Dr. Oskar Baer personally performed the history, physical exam, and medical decision making; and confirmed the accuracy of the information in the transcribed note. Authenticated by Dr. Oskar Baer on 02/03/17 at 14:22. Ester Hale Feb 03, 2017 13:54 Oskar Baer MD Feb 03, 2017 14:22
[2017-02-03] MEDS: cefTRIAXone INJ 1,000 MG in SODIUM CHLORIDE 0.9% INJ 100 ML IV SCH (18:33)
[2017-02-03 20:16] LABS: HEMATOCRIT 39.8 % (35.0-46.0); LYMPH % 4.5 % (9.0-44.0); LYMPHOCYTE # 0.8 TH/MM3 (1.0-4.8); MEAN CELL VOLUME 87.1 FL (80.0-100.0); MEAN CORPUSCULAR HEMOGLOBIN 28.5 PG (27.0-34.0); MEAN CORPUSCULAR HGB CONC 32.8 % (32.0-36.0); MONO % 3.4 % (0.0-8.0); NEUT % 92.1 % (16.0-70.0); PLATELET COUNT 254 TH/MM3 (150-450); RED BLOOD COUNT 4.57 MIL/MM3 (4.00-5.30); RED CELL DISTRIBUTION WIDTH 16.1 % (11.6-17.2); WHITE BLOOD COUNT 18.4 TH/MM3 (4.0-11.0)
[2017-02-03 20:28] LABS: HEMO FLAGS AUTO DIFF
[2017-02-03] MEDS: MIRTAZAPINE 15 MG TAB PO SCH (21:26)
[2017-02-03 21:29] LABS: BANDS 4 % (0-6); METAMYELOCYTES 1 % (0-1); MYELOCYTES 3 % (0-0); PLATELET ESTIMATE SMEAR NORMAL (NORMAL); PLATELET MORPHOLOGY NORMAL (NORMAL); POLYS (SEG NEUTROPHILS) 90 % (16-70); SCAN/DIFF FINAL DIFF MANUAL; WBC DIFF SAMPLE 100
[2017-02-04] VITALS (9 sets, daily range): BP systolic 124–191; BP diastolic 60–84; PULSE 58–92; RESP 18–19; TEMP 97.9–98.5; O2SAT 95–97
[2017-02-04] MEDS: AZITHROMYCIN INJ 500 MG in SODIUM CHLOR 0.9% 250 ML INJ 250 ML IV SCH (00:19)
[2017-02-04] MEDS: ACETAMINOPHEN/HYDROcodone 325 MG/5 MG TAB PO PRN (05:58)
[2017-02-04] MEDS: RESP: ALBUTEROL 2.5 MG/IPRATROPIUM 0.5 MG NEB (SCH) NEB ×4 (08:00→20:36)
[2017-02-04] MEDS: INSULIN ASPART SUPPLEMENTAL SCALE SQ SCH ×4 (08:00→21:44)
[2017-02-04] MEDS: ASPIRIN EC 81 MG TABEC PO SCH (08:47)
[2017-02-04] MEDS: DOCUSATE SODIUM 50 MG/SENNA 8.6 MG TAB PO SCH ×2 (08:47→21:00)
[2017-02-04] MEDS: DILTIAZEM-CD 180 MG CAP ER PO SCH (08:47)
[2017-02-04] MEDS: SODIUM CHLORIDE 0.9% FLUSH 10 ML FLUSH IV FLUSH SCH ×2 (08:48→21:43)
[2017-02-04] MEDS: methylPREDNISolone SOD SUCC 40 MG/1 ML VIAL IV PUSH SCH ×2 (08:48→21:49)
[2017-02-04] MEDS: BUDESONIDE-FORMOTEROL 160/4.5 MCG INHALER INH SCH ×2 (08:49→21:49)
[2017-02-04 08:54] LABS: BASOPHIL % 0.1 % (0.0-2.0); HEMATOCRIT 37.9 % (35.0-46.0); LYMPH % 6.4 % (9.0-44.0); MEAN CELL VOLUME 86.6 FL (80.0-100.0); MEAN CORPUSCULAR HEMOGLOBIN 28.2 PG (27.0-34.0); MEAN CORPUSCULAR HGB CONC 32.6 % (32.0-36.0); NEUT % 87.5 % (16.0-70.0); PLATELET COUNT 211 TH/MM3 (150-450); RED BLOOD COUNT 4.37 MIL/MM3 (4.00-5.30); RED CELL DISTRIBUTION WIDTH 16.6 % (11.6-17.2)
[2017-02-04 09:02] LABS: HEMO FLAGS AUTO DIFF
[2017-02-04 09:16] LABS: BICARBONATE 23.1 MEQ/L (21.0-32.0); POTASSIUM 3.9 MEQ/L (3.5-5.1)
--- NOTE | 2017-02-04 10:11 | HHI.PR ---
Subjective Remarks Patient states she is feeling better today. WBC is trending down. Afebrile. Objective Vital Signs Vital Signs Date Time Temp Pulse Resp B/P (MAP) Pulse Ox O2 Delivery O2 Flow Rate FiO2 02/04/17 08:00 97.9 58 19 191/84 (119) 96 02/04/17 07:50 92 02/04/17 05:00 98.5 90 18 152/83 (106) 96 02/04/17 01:00 98.4 72 18 124/60 (81) 97 02/03/17 21:00 98.7 86 18 162/69 (100) 98 02/03/17 19:50 96 02/03/17 16:39 98.1 74 19 127/58 (81) 96 02/03/17 12:24 98.0 72 18 150/69 (96) 95 I/O 02/03/17 02/03/17 02/03/17 02/04/17 02/04/17 02/04/17 07:00 15:00 23:00 07:00 15:00 23:00 Intake Total 600 ml Balance 600 ml Intake Oral 600 ml # Voids 4 3 Result Diagram: 02/04/17 0756 02/04/17 0756 Other Results Last Impressions Chest X-Ray 02/03/17 0000 Signed Impressions: Service Date/Time: Friday, February 03, 2017 11:05 - CONCLUSION: 1. Perihilar infiltrates which are slightly worse than on the previous examination. 2. Cardiomegaly. Leighton Dutta MD Lower Extremity Ultrasound 02/01/17 0000 Signed Impressions: Service Date/Time: January 18:56 - CONCLUSION: Normal examination. Gaurav Wells MD Objective Remarks GENERAL: Patient is 67 yo lying in bed in NAD however she reports SOB SKIN: Warm and dry. HEAD: Normocephalic. EYES: No scleral icterus. No injection or drainage. NECK: Supple, trachea midline. No JVD or lymphadenopathy. CARDIOVASCULAR: Regular rate and rhythm without murmurs, gallops, or rubs. RESPIRATORY: Breath sounds equal bilaterally. No accessory muscle use. GASTROINTESTINAL: Abdomen soft, non-tender, nondistended. MUSCULOSKELETAL: No cyanosis, or edema. BACK: Nontender without obvious deformity. No CVA tenderness. Neuro: Awake and alert A/P Assessment and Plan 1)Dyspnea... improving 2)Asthmatic bronchitis 3)RLL infiltrate 4)Approximal Atrial tachycardia 5)Leukocytosis 6)HTN Plan Oxygen PRN keep sat >92% Bronchodilators ( Duoneb, Symbicort) Incentive spirometry Taper steroids- decrease Solumedrol 40mg Q12 CXR yesterday showed perihilar infiltrate PFT as outpatient to asses severity of her obstructive lung disease Continue with abx( Rocephin, Zithromax) WBC is trending down. Echo showed EF 55-60%, normal diastolic parameters. Cards is following- Dr. Hardin Doppler US negative for DVT GI/DVT prophylaxis per primary team. Increase activity. Alejandro Jones MD Feb 04, 2017 10:11
[2017-02-04 10:34] LABS: BANDS 8 % (0-6); METAMYELOCYTES 2 % (0-1); MYELOCYTES 1 % (0-0); NEUTROPHIL # MANUAL DIFF 15.5 TH/MM3 (1.8-7.7); POLYS (SEG NEUTROPHILS) 86 % (16-70); WBC DIFF SAMPLE 100
[2017-02-04 10:35] LABS: PLATELET ESTIMATE SMEAR NORMAL (NORMAL); PLATELET MORPHOLOGY NORMAL (NORMAL); SCAN/DIFF FINAL DIFF MANUAL
--- NOTE | 2017-02-04 11:03 | HHI.PR ---
Subjective Remarks Written by Ester Hale, acting as scribe for Dr. Baer on 02/04/17 at 11:00. Follow up on patient with asthma exacerbation and PNA. Patient seen and examined. Patient reports her breathing is a little better today. She is requesting to get up with PT. She denies any other complaints at this time. Objective Vitals Vital Signs Date Time Temp Pulse Resp B/P (MAP) Pulse Ox O2 Delivery O2 Flow Rate FiO2 02/04/17 08:00 97.9 58 19 191/84 (119) 96 02/04/17 07:50 92 02/04/17 05:00 98.5 90 18 152/83 (106) 96 02/04/17 01:00 98.4 72 18 124/60 (81) 97 02/03/17 21:00 98.7 86 18 162/69 (100) 98 02/03/17 19:50 96 02/03/17 16:39 98.1 74 19 127/58 (81) 96 02/03/17 12:24 98.0 72 18 150/69 (96) 95 I/O 02/03/17 02/03/17 02/03/17 02/04/17 02/04/17 02/04/17 07:00 15:00 23:00 07:00 15:00 23:00 Intake Total 600 ml Balance 600 ml Intake Oral 600 ml # Voids 4 3 Result Diagram: 02/04/17 0756 02/04/17 0756 Imaging Last Impressions Chest X-Ray 02/03/17 0000 Signed Impressions: Service Date/Time: Friday, February 03, 2017 11:05 - CONCLUSION: 1. Perihilar infiltrates which are slightly worse than on the previous examination. 2. Cardiomegaly. Leighton Dutta MD Lower Extremity Ultrasound 02/01/17 0000 Signed Impressions: Service Date/Time: January 18:56 - CONCLUSION: Normal examination. Gaurav Wells MD Objective Remarks General: Elderly female in no acute distress. Lying in hospital bed. Appears comfortable. Heart: Regular rate and rhythm. No murmur. Lungs: Air entry improved some from yesterdays exam. Scattered wheeze. Breathing is nonlabored. Abdomen: Soft, nontender, nondistended. Extremities: No lower extremity edema. Psych: Alert and oriented. Procedures none Medications and IVs Current Medications Medications (Trade) Dose Ordered Sig/Rocky Route Start Time Stop Time Status Last Admin (NS Flush) 2 ml UNSCH PRN IV FLUSH 01/31/17 18:30 02/02/17 05:16 (NS Flush) 2 ml BID IV FLUSH 01/31/17 21:00 02/04/17 08:48 (Tylenol) 650 mg Q4H PRN PO 01/31/17 18:30 (Zofran Inj) 4 mg Q6H PRN IVP 01/31/17 18:30 (Debbi-Colace) 1 tab BID PO 01/31/17 21:00 02/04/17 08:47 (Milk Of Magnesia Liq) 30 ml Q12H PRN PO 01/31/17 18:30 (Senokot) 17.2 mg Q12H PRN PO 01/31/17 18:30 (Dulcolax Supp) 10 mg DAILY PRN RECTAL 01/31/17 18:30 (Lactulose Liq) 30 ml DAILY PRN PO 01/31/17 18:30 (Duoneb Neb) 1 ampule Q2HR NEB PRN NEB 01/31/17 18:45 Azithromycin 500 mg/Sodium Chloride 250 ml @ 250 mls/hr Q24H IV 02/01/17 00:00 02/04/17 00:19 Ceftriaxone Sodium 1000 mg/ Sodium Chloride 100 ml @ 200 mls/hr Q24H IV 02/01/17 18:00 02/03/17 18:33 (Narcan Inj) 0.4 mg UNSCH PRN IV PUSH 01/31/17 18:45 (Symbicort 160-4.5 Inh) 2 puff Q12HR INH 01/31/17 21:00 02/04/17 08:49 (Remeron) 7.5 mg HS PO 02/01/17 21:00 02/03/17 21:26 ([place] 5-325 Mg) 1 tab Q6H PRN PO 02/01/17 14:45 02/04/17 05:58 (Pill Splitter) 1 ea UNSCH PRN OTHER 02/01/17 15:00 (Ecotrin Ec) 162 mg DAILY PO 02/01/17 16:15 02/04/17 08:47 (Cardizem Cd) 360 mg DAILY PO 02/02/17 09:00 02/04/17 08:47 (Duoneb Neb) 1 ampule QID NEB NEB 02/02/17 16:00 02/03/17 19:50 (D50w (Vial) Inj) 50 ml UNSCH PRN IV PUSH 02/02/17 16:45 (Glucagon Inj) 1 mg UNSCH PRN OTHER 02/02/17 16:45 (NovoLOG SUPPLEMENTAL SCALE) 1 ACHS SLIDING SCALE SQ 02/02/17 17:00 02/03/17 21:00 (Tums Chew) 500 mg Q2H PRN CHEW 02/03/17 02:15 02/03/17 05:01 (Lovenox Inj) 40 mg Q24H SQ 02/03/17 11:00 02/03/17 13:05 (SoluMEDROL INJ) 40 mg BID IV PUSH 02/04/17 21:00 A/P Problem List: (1) COPD (chronic obstructive pulmonary disease) ICD Code: J44.9 - Chronic obstructive pulmonary disease, unspecified (2) Failure of outpatient treatment ICD Code: Z78.9 - Other specified health status (3) PNA (pneumonia) ICD Code: J18.9 - Pneumonia, unspecified organism (4) Rhabdomyolysis ICD Code: M62.82 - Rhabdomyolysis (5) Dehydration ICD Code: E86.0 - Dehydration (6) HTN (hypertension) ICD Code: I10 - Essential (primary) hypertension (7) New onset a-fib ICD Code: I48.91 - Unspecified atrial fibrillation Status: Acute Assessment and Plan 1. Asthma exacerbation: Failed outpatient therapy. Patient continues to report significant shortness of breath, however oxygen saturations are remaining stable on room air. Pulmonology following, appreciate his assistance. Patient with PFT as outpatient showing lung function of 35%. Continue Solu-Medrol - continue taper per pulmonary medicine, bronchodilators. BLE dopplers negative for DVT. Improved some today. 2. Pneumonia: Continue IV antibiotics. Repeat CXR personally interpreted showing worsening of perihilar infiltrates. IVF discontinued and patient given dose of Bumex per Pulm. White count improving. Pulm plans for repeat CXR tomorrow. 3. Dehydration: Resolved. 4. Mild rhabdomyolysis: Resolved. 5. Hypertension: Likely worsened secondary to shortness of breath. Monitor blood pressure. 6. Atrial fibrillation: Patient has had elevated rate. Continue Cardizem. Cardiology following, appreciate recommendations - Cardizem CD dose increased. Echo unremarkable. 7. Low TSH: Follow up Free T4 WNL and Free T3 low. Unlikely significant. Recommend repeat thyroid function testing in 6-8 weeks with PCP. 8. Hyperglycemia: Likely related to IV steroids. No reported history of diabetes. Hgb A1c 6.5. Continue accucheck and ISS. 9. DVT prophylaxis: Lovenox. Discharge Planning Plan for discharge to [facility], likely tomorrow. Pending clearance from Pulmonary standpoint. This note was transcribed by terese Hale. I, Dr. Oskar Baer personally performed the history, physical exam, and medical decision making; and confirmed the accuracy of the information in the transcribed note. Authenticated by Dr. Oskar Baer on 02/04/17 at 12:56. Ester Hale Feb 04, 2017 11:03 Oskar Baer MD Feb 04, 2017 12:56
[2017-02-04] MEDS: ENOXAPARIN SODIUM 40 MG/0.4 ML SYRINGE SQ SCH (12:27)
[2017-02-04] MEDS ORDERED: methylPREDNISolone SOD SUCC 40 MG/1 ML VIAL IV PUSH SCH (13:00)
[2017-02-04] MEDS: cefTRIAXone INJ 1,000 MG in SODIUM CHLORIDE 0.9% INJ 100 ML IV SCH (18:01)
[2017-02-04] MEDS: MIRTAZAPINE 15 MG TAB PO SCH (21:42)
[2017-02-04] MEDS: SODIUM CHLORIDE 0.9% FLUSH 10 ML FLUSH IV FLUSH PRN (21:50)
[2017-02-05] VITALS (7 sets, daily range): BP systolic 131–184; BP diastolic 63–81; PULSE 53–90; RESP 18–20; TEMP 97.6–98.2; O2SAT 95–98
[2017-02-05] MEDS: AZITHROMYCIN INJ 500 MG in SODIUM CHLOR 0.9% 250 ML INJ 250 ML IV SCH (00:26)
[2017-02-05] MEDS: ACETAMINOPHEN/HYDROcodone 325 MG/5 MG TAB PO PRN ×3 (02:27→15:41)
[2017-02-05] MEDS: SODIUM CHLORIDE 0.9% FLUSH 10 ML FLUSH IV FLUSH PRN (02:28)
--- NOTE | 2017-02-05 07:15 | RADRPT ---
EXAM DATE/TIME: 02/05/2017 06:57 [facility] COMPARISON: CHEST SINGLE AP, August 07, 2016, 10:00. CHEST SINGLE AP, December 14, 2016, 17:19. CHEST SINGLE AP, January 31, 2017, 17:19. CHEST SINGLE AP, February 03, 2017, 11:05. INDICATIONS : Short of breath, evaluate infiltrate MEDICAL HISTORY : Chronic obstructive pulmonary disease. SURGICAL HISTORY : parathyroid ENCOUNTER: Subsequent ACUITY: 1 month PAIN SCORE: 0/10 LOCATION: Bilateral chest FINDINGS: The chest is stable in appearance. Mild right-sided suprahilar airspace disease remains apparent. The re are no consolidating airspace changes. Heart and mediastinal structures are stable. CONCLUSION: Persistent mild right suprahilar airspace disease otherwise stable chest. Laureano Yepez MD on February 05, 2017 at 7:11 Board Certified Radiologist. This report was verified electronically.
[2017-02-05 07:49] LABS: AUTOMATED NEUTROPHIL # 15.6 TH/MM3 (1.8-7.7); BASOPHIL % 0.1 % (0.0-2.0); HEMATOCRIT 38.3 % (35.0-46.0); LYMPH % 5.4 % (9.0-44.0); LYMPHOCYTE # 0.9 TH/MM3 (1.0-4.8); MEAN CELL VOLUME 86.4 FL (80.0-100.0); MEAN CORPUSCULAR HEMOGLOBIN 28.1 PG (27.0-34.0); MEAN CORPUSCULAR HGB CONC 32.5 % (32.0-36.0); MONO % 4.9 % (0.0-8.0); NEUT % 89.6 % (16.0-70.0); PLATELET COUNT 216 TH/MM3 (150-450); RED BLOOD COUNT 4.43 MIL/MM3 (4.00-5.30); RED CELL DISTRIBUTION WIDTH 16.4 % (11.6-17.2); WHITE BLOOD COUNT 17.5 TH/MM3 (4.0-11.0)
[2017-02-05 07:55] LABS: HEMO FLAGS AUTO DIFF
[2017-02-05] MEDS: INSULIN ASPART SUPPLEMENTAL SCALE SQ SCH ×3 (08:00→17:00)
--- NOTE | 2017-02-05 08:04 | PD.CARD.PN ---
Subjective Subjective Remarks Dyspnea slowly improving. Constant chest heaviness persists, occasional fleeting sharp CP's. No pleurisy, palpitations, dizziness. Objective Medications Item Value Date Time Enoxaparin Sodium 40 mg 02/03/17 1100 (Lovenox Inj) Q24H/SQ 02/04/17 1227 Diltiazem HCl 360 mg 02/02/17 0900 (Cardizem Cd) DAILY/PO 02/04/17 0847 Aspirin 162 mg 02/01/17 1615 (Ecotrin Ec) DAILY/PO 02/04/17 0847 Current Medications Medications (Trade) Dose Ordered Sig/Rocky Route Start Time Stop Time Status Last Admin (NS Flush) 2 ml UNSCH PRN IV FLUSH 01/31/17 18:30 02/05/17 02:28 (NS Flush) 2 ml BID IV FLUSH 01/31/17 21:00 02/04/17 21:43 (Tylenol) 650 mg Q4H PRN PO 01/31/17 18:30 (Zofran Inj) 4 mg Q6H PRN IVP 01/31/17 18:30 (Debbi-Colace) 1 tab BID PO 01/31/17 21:00 02/04/17 08:47 (Milk Of Magnesia Liq) 30 ml Q12H PRN PO 01/31/17 18:30 (Senokot) 17.2 mg Q12H PRN PO 01/31/17 18:30 (Dulcolax Supp) 10 mg DAILY PRN RECTAL 01/31/17 18:30 (Lactulose Liq) 30 ml DAILY PRN PO 01/31/17 18:30 (Duoneb Neb) 1 ampule Q2HR NEB PRN NEB 01/31/17 18:45 Azithromycin 500 mg/Sodium Chloride 250 ml @ 250 mls/hr Q24H IV 02/01/17 00:00 02/05/17 00:26 Ceftriaxone Sodium 1000 mg/ Sodium Chloride 100 ml @ 200 mls/hr Q24H IV 02/01/17 18:00 02/04/17 18:01 (Narcan Inj) 0.4 mg UNSCH PRN IV PUSH 01/31/17 18:45 (Symbicort 160-4.5 Inh) 2 puff Q12HR INH 01/31/17 21:00 02/04/17 21:49 (Remeron) 7.5 mg HS PO 02/01/17 21:00 02/04/17 21:42 ([place] 5-325 Mg) 1 tab Q6H PRN PO 02/01/17 14:45 02/05/17 02:27 (Pill Splitter) 1 ea UNSCH PRN OTHER 02/01/17 15:00 (Ecotrin Ec) 162 mg DAILY PO 02/01/17 16:15 02/04/17 08:47 (Cardizem Cd) 360 mg DAILY PO 02/02/17 09:00 02/04/17 08:47 (Duoneb Neb) 1 ampule QID NEB NEB 02/02/17 16:00 02/04/17 20:36 (D50w (Vial) Inj) 50 ml UNSCH PRN IV PUSH 02/02/17 16:45 (Glucagon Inj) 1 mg UNSCH PRN OTHER 02/02/17 16:45 (NovoLOG SUPPLEMENTAL SCALE) 1 ACHS SLIDING SCALE SQ 02/02/17 17:00 02/04/17 21:44 (Tums Chew) 500 mg Q2H PRN CHEW 02/03/17 02:15 02/03/17 05:01 (Lovenox Inj) 40 mg Q24H SQ 02/03/17 11:00 02/04/17 12:27 (SoluMEDROL INJ) 40 mg BID IV PUSH 02/04/17 21:00 02/04/17 21:49 Vital Signs / I&O Vital Signs Date Time Temp Pulse Resp B/P (MAP) Pulse Ox O2 Delivery O2 Flow Rate FiO2 02/05/17 06:00 98.2 53 18 184/77 (112) 95 02/05/17 00:58 98.2 73 18 135/63 (87) 96 02/04/17 21:20 98.5 71 18 135/61 (85) 95 02/04/17 16:21 98.4 82 18 127/69 (88) 97 02/04/17 16:09 95 21 02/04/17 12:14 98.1 78 19 146/82 (103) 95 02/04/17 11:46 96 I/O 10/29/17 10/29/17 10/29/17 10/30/17 10/30/17 10/30/17 07:00 15:00 23:00 07:00 15:00 23:00 Intake Total 100 ml Balance 100 ml IV Total 100 ml # Voids 3 3 # Bowel Movements 1 Physical Exam GENERAL: Well developed, well nourished. No acute distress. HEENT: Jugular venous pressure is normal. CHEST: Diminished breath sounds diffusely. CARDIAC: Regular rate and rhythm without S3, S4. II/ DENIS base. Normal S2. ABDOMEN: Soft, nontender, no hepatosplenomegaly. Bowel sounds present. EXTREMITIES: No clubbing, cyanosis, or edema. Laboratory Laboratory Tests Test 02/05/17 07:26 White Blood Count 17.5 TH/MM3 Red Blood Count 4.43 MIL/MM3 Hemoglobin 12.4 GM/DL Hematocrit 38.3 % Mean Corpuscular Volume 86.4 FL Mean Corpuscular Hemoglobin 28.1 PG Mean Corpuscular Hemoglobin Concent 32.5 % Red Cell Distribution Width 16.4 % Platelet Count 216 TH/MM3 Mean Platelet Volume 8.8 FL Neutrophils (%) (Auto) 89.6 % Lymphocytes (%) (Auto) 5.4 % Monocytes (%) (Auto) 4.9 % Eosinophils (%) (Auto) 0.0 % Basophils (%) (Auto) 0.1 % Neutrophils # (Auto) 15.6 TH/MM3 Lymphocytes # (Auto) 0.9 TH/MM3 Monocytes # (Auto) 0.9 TH/MM3 Eosinophils # (Auto) 0.0 TH/MM3 Basophils # (Auto) 0.0 TH/MM3 CBC Comment AUTO DIFF Imaging Last 24 hours Impressions Chest X-Ray 02/05/17 0600 Signed Impressions: Service Date/Time: Sunday, February 05, 2017 06:57 - CONCLUSION: Persistent mild right suprahilar airspace disease otherwise stable chest. Laureano Yepez MD Assessment and Plan Problem List: (1) Paroxysmal atrial tachycardia ICD Codes: I47.1 - Supraventricular tachycardia Status: Acute Plan: Continued salvoes of what appear to be either ectopic atrial tachycardia or multifocal atrial tachycardia, seem to be overall less frequent. Suspect episodes will diminish with improvement in her pulmonary status. Echo unremarkable. REC continue Cardizem CD 360 mg qd, continue daily aspirin will f/u as needed; she can f/u with Dr. Reed in the office (2) Chest pain ICD Codes: R07.9 - Chest pain, unspecified Status: Chronic Plan: Unchanged constant chest heaviness for few weeks, suspect more related to her asthma. Negative cardiac enzymes despite such prolonged CP. (3) Paroxysmal atrial fibrillation ICD Codes: I48.0 - Paroxysmal atrial fibrillation Status: Resolved Plan: Questionable history of paroxysmal atrial fib diagnosed in [place] few weeks ago ago. No definite atrial fib, but rather atrial tachycardia, seen on monitoring here. Patient's thromboembolic risk overall low. Normal LV function by echo. REC continue Cardizem, daily aspirin Code Status full code Discussed Condition With patient Problem Qualifiers (1) Chest pain: Qualified Codes: R07.9 - Chest pain, unspecified Radhames Kirk MD Feb 05, 2017 08:04
[2017-02-05] MEDS: DILTIAZEM-CD 180 MG CAP ER PO SCH (08:52)
[2017-02-05] MEDS: BUDESONIDE-FORMOTEROL 160/4.5 MCG INHALER INH SCH (08:52)
[2017-02-05] MEDS: ASPIRIN EC 81 MG TABEC PO SCH (08:53)
[2017-02-05] MEDS: DOCUSATE SODIUM 50 MG/SENNA 8.6 MG TAB PO SCH (08:53)
[2017-02-05] MEDS: SODIUM CHLORIDE 0.9% FLUSH 10 ML FLUSH IV FLUSH SCH (08:54)
[2017-02-05] MEDS: methylPREDNISolone SOD SUCC 40 MG/1 ML VIAL IV PUSH SCH (08:54)
[2017-02-05] MEDS ORDERED: CEFUROXIME AXETIL 500 MG TAB PO SCH (09:30)
[2017-02-05] MEDS ORDERED: predniSONE 20 MG TAB PO SCH (09:30)
[2017-02-05] MEDS: RESP: ALBUTEROL 2.5 MG/IPRATROPIUM 0.5 MG NEB (SCH) NEB ×3 (09:33→16:00)
[2017-02-05 10:00] LABS: BLOOD GAS BASE EXCESS 1.9 mmol/L (-2-2); BLOOD GAS HCO3 26 mmol/L (22-26); BLOOD GAS METHEMOGLOBIN 1.1 % (0-2); BLOOD GAS O2 HGB SATURATION 94 % (90-100); BLOOD GAS OXYGEN CONTENT 16.2 Vol % (12.0-20.0); BLOOD GAS PCO2 37 mmHg (38-42); BLOOD GAS PO2 83 mmHg (61-120); BLOOD GAS TOTAL HGB 12.1 G/DL (12.0-16.0); TEMP CORR TO 98.6
[2017-02-05 10:01] LABS: CRITICAL VALUE NO; DRAW SITE RT RADIAL; FIO2 21 %; NUMBER OF ARTERIAL PUNCTURES 1; STAT NO; ULNAR PULSE PRESENT
[2017-02-05 10:55] LABS: PLATELET ESTIMATE SMEAR NORMAL (NORMAL); PLATELET MORPHOLOGY NORMAL (NORMAL); SCAN/DIFF AUTO DIFF CONFIRMED
[2017-02-05] MEDS: ENOXAPARIN SODIUM 40 MG/0.4 ML SYRINGE SQ SCH (11:56)
[2017-02-05] MEDS ORDERED: MIRTA15 PO (11:58)
[2017-02-05] MEDS ORDERED: IPRASOL NEB (11:58)
[2017-02-05] MEDS ORDERED: CEFU1TAB20 PO (11:58)
[2017-02-05] MEDS ORDERED: CARD180C5 PO (11:58)
[2017-02-05] MEDS ORDERED: ASPI-99 PO (11:58)
[2017-02-05] MEDS ORDERED: HYDR-3516 PO (11:58)
--- NOTE | 2017-02-05 12:00 | HHI.DCPOC ---
Discharge Care Plan Diagnosis: (1) New onset a-fib (2) Acute asthma exacerbation (3) PNA (pneumonia) (4) HTN (hypertension) (5) Rhabdomyolysis Goals to Promote Your Health * To prevent worsening of your condition and complications * To maintain your health at the optimal level Directions to Meet Your Goals Take your medications as prescribed Follow your dietary instruction Follow activity as directed Keep your appointments as scheduled Take your immunizations and boosters as scheduled If your symptoms worsen call your PCP, if no PCP go to Urgent Care Center or Emergency Room Smoking is Dangerous to Your Health. Avoid second hand smoke Call the 24-hour hour crisis hotline for domestic abuse at Oskar Baer MD Feb 05, 2017 12:00
--- NOTE | 2017-02-05 12:02 | HHI.DS ---
Discharge Summary Admission Date Jan 31, 2017 at 18:31 Discharge Date: Feb 05, 2017 Admitting Diagnosis COPD exacerbation/possible pneumonia/failed outpatient therapy (1) COPD (chronic obstructive pulmonary disease) ICD Code: J44.9 - Chronic obstructive pulmonary disease, unspecified (2) Failure of outpatient treatment ICD Code: Z78.9 - Other specified health status (3) PNA (pneumonia) ICD Code: J18.9 - Pneumonia, unspecified organism (4) Rhabdomyolysis ICD Code: M62.82 - Rhabdomyolysis (5) Dehydration ICD Code: E86.0 - Dehydration (6) HTN (hypertension) ICD Code: I10 - Essential (primary) hypertension (7) New onset a-fib ICD Code: I48.91 - Unspecified atrial fibrillation Status: Acute Procedures none Brief History - From Admission This is a 76-year-old female with a PMH of Anxiety, HTN, Hypothyroidism and COPD who presented to the ER with complaints of SOB in addition to wheezing. States symptoms have been ongoing for several weeks, follows w/ Dr. Oquendo and has been on multiple courses of Prednisone with minimal relief. Today, w/ ongoing SOB and wheezing, told by Dr. Oquendo to come to ER for evaluation. Denies fever or chills. Reports occasional cough, but nonproductive. On arrival, BP 171/83, HR 99, O2 sat 98% on RA, Temp 99.1. WBC 12.0, elevated neutrophil count. Chemistry essentially unremarkable except for mild dehydration. CPK 252. Trop negative. CXR with small right infrahilar infiltrate. S/p Rocephin/Zithro, Solu-Medrol and DuoNeb in ER. While in ER, pt noted to have episode of A-fib w/ RVR, HR 112, started on Cardizem 30mg PO q6h, HR currently 90's. CBC/BMP: 02/05/17 0726 02/04/17 0756 Significant Findings Laboratory Tests Test 02/03/17 19:20 02/03/17 19:23 02/04/17 07:56 02/05/17 07:26 White Blood Count 18.4 TH/MM3 (4.0-11.0) 16.0 TH/MM3 (4.0-11.0) 17.5 TH/MM3 (4.0-11.0) Neutrophils (%) (Auto) 92.1 % (16.0-70.0) 87.5 % (16.0-70.0) 89.6 % (16.0-70.0) Lymphocytes (%) (Auto) 4.5 % (9.0-44.0) 6.4 % (9.0-44.0) 5.4 % (9.0-44.0) Neutrophils # (Auto) 17.0 TH/MM3 (1.8-7.7) 14.0 TH/MM3 (1.8-7.7) 15.6 TH/MM3 (1.8-7.7) Lymphocytes # (Auto) 0.8 TH/MM3 (1.0-4.8) 0.9 TH/MM3 (1.0-4.8) Neutrophils % (Manual) 90 % (16-70) 86 % (16-70) Lymphocytes % 2 % (9-44) 2 % (9-44) Neutrophils # (Manual) 18.0 TH/MM3 (1.8-7.7) 15.5 TH/MM3 (1.8-7.7) Myelocytes 3 % (0-0) 1 % (0-0) Blood Urea Nitrogen 29 MG/DL (7-18) 26 MG/DL (7-18) Creatinine 1.22 MG/DL (0.50-1.00) Random Glucose 247 MG/DL (74-106) 134 MG/DL (74-106) Calcium Level 8.4 MG/DL (8.5-10.1) 8.2 MG/DL (8.5-10.1) Estimat Glomerular Filtration Rate 43 ML/MIN (>89) 84 ML/MIN (>89) Monocytes # (Auto) 1.0 TH/MM3 (0-0.9) Band Neutrophils % 8 % (0-6) Metamyelocytes 2 % (0-1) Test 02/05/17 09:50 Arterial Blood pH 7.45 (7.380-7.420) Arterial Blood Partial Pressure CO2 37 mmHg (38-42) Imaging Last Impressions Chest X-Ray 02/05/17 0600 Signed Impressions: Service Date/Time: Sunday, February 05, 2017 06:57 - CONCLUSION: Persistent mild right suprahilar airspace disease otherwise stable chest. Laureano Yepez MD Lower Extremity Ultrasound 02/01/17 0000 Signed Impressions: Service Date/Time: January 18:56 - CONCLUSION: Normal examination. Gaurav Wells MD PE at Discharge General: Elderly female in no acute distress. Lying in hospital bed. Appears comfortable. Heart: Regular rate and rhythm. No murmur. Lungs: Air entry improved some from yesterdays exam. Scattered wheeze. Breathing is nonlabored. Abdomen: Soft, nontender, nondistended. Extremities: No lower extremity edema. Psych: Alert and oriented. Pt update on day of discharge The patient states that she feels a little better today. She is still having shortness of breath with activity. No chest pain. Denies nausea, vomiting. She feels ready to go to rehabilitation. Hospital Course The patient was admitted for management of dyspnea, respiratory failure. She was continued on bronchodilators, supplemental oxygen, steroids. Her telemetry nurse was consulted. Antibiotics were added for treatment of pneumonia. Mild rhabdomyolysis was treated with IV fluids. Cardiology was consulted for new onset atrial fibrillation. Patient was started on Cardizem. Patient continued to have shortness of breath. Her oxygen saturations remained stable. Steroids were tapered. Patient was transitioned to oral antibiotics. She was cleared for discharge by pulmonology. She was felt to be stable for discharge to SNF. Pt Condition on Discharge: Stable Discharge Disposition: Discharge to SNF Discharge Time: > 30 minutes Discharge Instructions DIET: Follow Instructions for: Heart Healthy Diet Activities you can perform: Regular-No Restrictions Follow up Referrals: Cardiology - 3 Weeks with Jayla Reed MD PCP Follow-up - 1 Week Pulmonology - 1 Week with Nicholas Oquedno MD New Medications: Walker with Front Wheels (Walker with Front Wheels) 1 Mis Mis EA .ROUTE DIRECTED, #[address] (Adult Aspirin EC Low Strength) 81 Mg Tabec 162 MG PO DAILY for Heart, #30 TAB 0 Refills Cefuroxime (Cefuroxime) 500 Mg Tab 500 MG PO Q12HR for Infection, #14 TAB 0 Refills Diltiazem CD 24 HR (Cardizem CD 24 HR) 180 Mg Caper 360 MG PO DAILY for Heart, #30 CAP 0 Refills Hydrocodone-Acetaminophen (Hydrocodone-Acetaminophen) 5-325 mg Tab 1 TAB PO Q6H PRN for PAIN SCALE 3 TO 10, #10 TAB 0 Refills Ipratropium-Albuterol Neb (Duoneb) 0.5-2.5 Mg/3 Ml Neb 1 AMPULE NEB QID NEB for Dyspnea, #30 ML 0 Refills Mirtazapine (Mirtazapine) 15 Mg Tab 7.5 MG PO HS for Depression Control, #30 TAB 0 Refills Continued Medications: Albuterol 6.7 GM Inh (Proventil Hfa 6.7 GM Inh) 90 Mcg/Act Aer 1 PUFF INH Q4H PRN for SHORTNESS OF BREATH, #1 INHALER 0 Refills Albuterol Neb (Albuterol Neb) 1.25 Mg/3 Ml Neb 1.25 MG NEB QID NEB PRN for SHORTNESS OF BREATH, #125 NEBULE 0 Refills Fluticasone-Salmeterol Inh (Advair Diskus Inh) 500-50 Mcg/Blist Aer 2 PUFF INH BID, #1 INHALER 0 Refills Rinse mouth after use. Melatonin-Pyridoxine (Melatonin 3-2 mg) 1 Tab Tab Prednisone (Deltasone) 20 Mg Tab 20 MG PO BID for 5 Days, #60 TAB 0 Refills Discontinued Medications: Albuterol 18 GM Inh (Ventolin Hfa 18 GM Inh) 90 Mcg/Act Aer 2 PUFF INH Q4H PRN for SHORTNESS OF BREATH, #1 INHALER 0 Refills Ciprofloxacin (Cipro) 500 Mg Tab 500 MG PO BID for Infection, TAB 0 Refills Hydrocodone-Acetaminophen (Lortab) 10-325 Mg Tab 1 TAB PO DAILY for PAIN, TAB 0 Refills Prednisone (Prednisone) 20 Mg Tab 20 MG PO DIRECTED for Inflammation, #11 TAB 0 Refills 40 MG twice a day x 3 days, then 20 MG daily x 3 days, then 10 MG daily x 3 days Tramadol (Tramadol) 50 Mg Tab 50 MG PO Q8H PRN for PAIN, TAB 0 Refills [Nebulizer Treatments] () Oskar Baer MD Feb 05, 2017 12:02
== END 2017-02-05 18:58 | DRG 190 ==
LOC: NEPC 16:40 → NEDA 18:31 → N05B 19:55
PROVIDERS: ADMIT Family Medicine; ATTEND Family Medicine
DX: J44.0 Chronic obstructive pulmonary disease with (acute) lower respiratory infection (principal); J18.9 Pneumonia, unspecified organism; J96.10 Chronic respiratory failure, unspecified whether with hypoxia or hypercapnia; M62.82 Rhabdomyolysis; J45.51 Severe persistent asthma with (acute) exacerbation; E86.0 Dehydration; I47.1 Supraventricular tachycardia; I48.0 Paroxysmal atrial fibrillation; J45.901 Unspecified asthma with (acute) exacerbation; J44.1 Chronic obstructive pulmonary disease with (acute) exacerbation; E78.5 Hyperlipidemia, unspecified; I10 Essential (primary) hypertension; E03.9 Hypothyroidism, unspecified; T38.0X5A Adverse effect of glucocorticoids and synthetic analogues, initial encounter; R73.9 Hyperglycemia, unspecified; F41.9 Anxiety disorder, unspecified; Z91.041 Radiographic dye allergy status
CPT/HCPCS: 36600; 71010; 80048; 80053; 82550; 82552; 82805; 82948; 83036; 83605; 83880; 84439; 84443; 84481; 84484; 85007; 85025; 85027; 87040; 93005; 93306; 93970; 94150; 94620; 94640; 94664; 96374; J0456; J0696; J1650; J1815; J2920; J2930; J3480; J7030; J7050; J7512

== ENCOUNTER 2017-03-06 16:25 | Inpatient (IN) | payer OTHER, MEDICARE ==
[2017-03-06] VITALS (9 sets, daily range): BP systolic 101–145; BP diastolic 55–85; PULSE 82–90; RESP 20–30; TEMP 97.1–98.6; O2SAT 96–97
[~2017-03-06] VITALS: Ht 165.1 cm; Wt 77.1 kg
[~2017-03-06 16:25] MED LIST changes: +ASPI1TAB56 PO; +CARD180C5 PO; +CEFU1TAB20 PO; -CIPR-9 PO; +HYDR-3516 PO; -HYDR-3535 PO; +IPRASOL NEB; +MIRTA15 PO; -PRED20 PO; -TRAM50TA PO; -VENTAER INH; +WALKER WHEELS/F1 MIS; -[UNRECOGNIZED DRUG - OTHER]
[2017-03-06] MEDS ORDERED: NITROGLYCERIN 0.4 MG SL 25 TABS/BTL SL ONE (16:48)
[2017-03-06] MEDS: NITROGLYCERIN 0.4 MG SL 25 TABS/BTL SL SCH ×3 (16:52→17:20)
--- NOTE | 2017-03-06 16:55 | PD ---
HPI Chief Complaint: chest pain/shortness of breath Time Seen by Provider: 16:45 Travel History International Travel<30 days: No Contact w/Intl Traveler<30days: No Traveled to known affect area: No History of Present Illness HPI Patient is a 76 year female with history of anxiety, hypertension, hypothyroidism, COPD, presents to emergency room with complaints of shortness of breath. Patient reports that she was recently discharged from a rehabilitation facility as she is being treated for pneumonia. Patient reports that she does follow-up with Dr. barcenas for her COPD. [facility] by [facility] today while at home, concerns as she has noticed increased for 4 pound weight gain over the past few days. Reports that her legs appear more swollen than normal. Patient reports that she has also been feeling short of breath, she tried taking in a treatment prior to coming to the emergency room without relief of any symptoms. Reports that over the past 2 days, she has been having substernal chest pain. Patient reports that she has been feeling a "pressure" to my chest, which that it last for a while and then resolve on its own. When she does have these symptoms, she does have worsening shortness of breath. Patient did see her country sales manager yesterday, Dr. Reed, she did try to address the swelling and the shortness of breath and chest pain, reports that nothing was done for her to address her issues during her office visit. Patient was encouraged by [facility] to come to the emergency for evaluation. Patient denies any fever or chills, reports that she currently is not taking any antibiotics. Patient with no other complaints at this time. PFSH Past Medical History Arthritis: Yes (lower back) Asthma: Yes Atrial Fibrillation: Yes Autoimmune Disease: No Anxiety: Yes Depression: No Heart Rhythm Problems: No Cancer: Yes (RIGHT FOOT) Cardiovascular Problems: Yes (dyslipidemia) High Cholesterol: Yes Chemotherapy: No Chest Pain: No Congestive Heart Failure: No COPD: Yes Cerebrovascular Accident: No Coronary Artery Disease: No (May have A-Fib) Diabetes: No Diminished Hearing: No Endocrine: Yes Gastrointestinal Disorders: Yes (HX OF CONSTIPATION, TAKES MIRALAX EVERY OTHER DAY) GERD: No Genitourinary: Yes ([employer] BLADDER SURGERY) Headaches: Yes Hiatal Hernia: No Heparin Induced Thrombocytopen: No Hypertension: No Immune Disorder: No Implanted Vascular Access Dvce: No Kidney Stones: Yes (2006) Musculoskeletal: Yes Neurologic: Yes Psychiatric: Yes Reproductive: No Respiratory: Yes (asthma) Immunizations Current: Yes Migraines: No Radiation Therapy: No Renal Failure: No Seizures: No Sickle Cell Disease: No Sleep Apnea: No Thyroid Disease: Yes Menopausal: Yes Past Surgical History AICD: No Arteriovenous Shunt: No Endocrine Surgery: Yes (parathyroid surgery) Genitourinary Surgery: Yes (KIDNEY STONES REMOVED 2006) Gynecologic Surgery: Yes ( BLADDER LIFT) Hysterectomy: Yes Insulin Pump: No Joint Replacement: No Pacemaker: No Other Surgery: Yes (PARATHYROID SURGERY, angioplasty right leg) Social History Alcohol Use: No Tobacco Use: No Substance Use: No Allergies-Medications (Allergen,Severity, Reaction): Coded Allergies: diatrizoate meglumine (Unverified Allergy, Unknown, Shortness of Breath, ) gadobenic acid (Unverified Allergy, Unknown, Shortness of Breath, 11/21/16) gadodiamide (Unverified Allergy, Unknown, Shortness of Breath, 11/21/16) gadoteridol (Unverified Allergy, Unknown, Shortness of Breath, 11/21/16) iodixanol (Unverified Allergy, Unknown, Shortness of Breath, 11/21/16) iohexol (Unverified Allergy, Unknown, Shortness of Breath, 11/21/16) Reported Meds & Prescriptions Reported Meds & Active Scripts Active Mirtazapine 15 Mg Tab 7.5 Mg PO HS Hydrocodone-Acetaminophen 5-325 mg Tab 1 Tab PO Q6H PRN Adult Aspirin EC Low Strength (Aspirin) 81 Mg Tabec 162 Mg PO DAILY Cardizem CD 24 HR (Diltiazem CD 24 HR) 180 Mg Caper 360 Mg PO DAILY Duoneb (Ipratropium-Albuterol Neb) 0.5-2.5 Mg/3 Ml Neb 1 Ampule NEB QID NEB Cefuroxime (Cefuroxime Axetil) 500 Mg Tab 500 Mg PO Q12HR Walker with Front Wheels (Device) 1 Mis Mis Ea .ROUTE DIRECTED Deltasone (Prednisone) 20 Mg Tab 20 Mg PO BID 5 Days Proventil Hfa 6.7 GM Inh (Albuterol Sulfate) 90 Mcg/Act Aer 1 Puff INH Q4H PRN Reported Albuterol Neb (Albuterol Sulfate) 1.25 Mg/3 Ml Neb 1.25 Mg NEB QID NEB PRN Advair Diskus Inh (Fluticasone-Salmeterol Inh) 500-50 Mcg/Blist Aer 2 Puff INH BID Rinse mouth after use. Melatonin 3-2 mg (Melatonin-Pyridoxine) 1 Tab Tab Review of Systems General / Constitutional: No: Fever, Chills Eyes: No: Visual changes HENT: No: Headaches Cardiovascular: Positive: Chest Pain or Discomfort, Dyspnea on exertion Respiratory: Positive: Shortness of Breath, Wheezing Gastrointestinal: No: Abdominal Pain Genitourinary: No: Dysuria Musculoskeletal: Positive: Edema (lower extremity edema bilaterally), No: Pain Skin: No Rash Neurologic: No: Weakness Psychiatric: No: Depression Endocrine: No: Polydipsia Hematologic/Lymphatic: No: Easy Bruising Physical Exam Narrative GENERAL: Moderate distress SKIN: Focused skin assessment warm/dry. HEAD: Atraumatic. Normocephalic. EYES: Pupils equal and round. No scleral icterus. No injection or drainage. ENT: No nasal bleeding or discharge. Mucous membranes pink and moist. NECK: Trachea midline. No JVD. CARDIOVASCULAR: Regular rate and rhythm. No murmur appreciated. RESPIRATORY: No accessory muscle use. Decreased breath sounds bilaterally GASTROINTESTINAL: Abdomen soft, non-tender, nondistended. Hepatic and splenic margins not palpable. MUSCULOSKELETAL: No obvious deformities. No clubbing. No cyanosis. +1 pitting edema bilaterally. NEUROLOGICAL: Awake and alert. No obvious cranial nerve deficits. Motor grossly within normal limits. Normal speech. PSYCHIATRIC: Appropriate mood and affect; insight and judgment normal. Data Data Last Documented VS Vital Signs Date Time Temp Pulse Resp B/P (MAP) Pulse Ox O2 Delivery O2 Flow Rate FiO2 03/06/17 18:25 98.5 86 22 133/65 (87) 96 Room Air Orders Orders Electrocardiogram (03/06/17 16:46) B-Type Natriuretic Peptide (03/06/17 16:46) Ckmb (Isoenzyme) Profile (03/06/17 16:46) Complete Blood Count With Diff (03/06/17 16:46) Comprehensive Metabolic Panel (03/06/17 16:46) Magnesium (Mg) (03/06/17 16:46) Prothrombin Time / Inr (Pt) (03/06/17 16:46) Act Partial Throm Time (Ptt) (03/06/17 16:46) Troponin I (03/06/17 16:46) Chest, Single Ap (03/06/17 16:46) Ecg Monitoring (03/06/17 16:46) Iv Access Insert/Monitor (03/06/17 16:46) Oximetry (03/06/17 16:46) Sodium Chloride 0.9% Flush (Ns Flush) (03/06/17 17:00) Us Leg Venous Doppler Bilat (03/06/17 ) Aspirin Chew (Aspirin Chew) (03/06/17 17:00) Nitroglycerin Sl (Nitrostat Sl) (03/06/17 17:00) Methylprednisolone So Succ Inj (Solumedr (03/06/17 17:00) Albuterol-Ipratropium Neb (Duoneb Neb) (03/06/17 17:00) Nitroglycerin Sl (Nitrostat Sl) (03/06/17 16:48) CKMB (03/06/17 16:59) CKMB% (03/06/17 16:59) Labs Laboratory Tests Test 03/06/17 16:59 White Blood Count 10.2 TH/MM3 Red Blood Count 3.89 MIL/MM3 Hemoglobin 11.3 GM/DL Hematocrit 34.4 % Mean Corpuscular Volume 88.6 FL Mean Corpuscular Hemoglobin 29.1 PG Mean Corpuscular Hemoglobin Concent 32.9 % Red Cell Distribution Width 16.4 % Platelet Count 311 TH/MM3 Mean Platelet Volume 7.8 FL CBC Comment AUTO DIFF Differential Total Cells Counted 100 Neutrophils % (Manual) 88 % Band Neutrophils % 1 % Lymphocytes % 8 % Monocytes % 3 % Neutrophils # (Manual) 9.1 TH/MM3 Differential Comment FINAL DIFF MANUAL Platelet Estimate NORMAL Platelet Morphology Comment NORMAL Prothrombin Time 9.5 SEC Prothromb Time International Ratio 0.9 RATIO Activated Partial Thromboplast Time 24.0 SEC Blood Urea Nitrogen 22 MG/DL Creatinine 0.95 MG/DL Random Glucose 140 MG/DL Total Protein 6.6 GM/DL Albumin 3.2 GM/DL Calcium Level 8.5 MG/DL Magnesium Level 2.1 MG/DL Alkaline Phosphatase 67 U/L Aspartate Amino Transf (AST/SGOT) 14 U/L Alanine Aminotransferase (ALT/SGPT) 30 U/L Total Bilirubin 0.3 MG/DL Sodium Level 139 MEQ/L Potassium Level 4.8 MEQ/L Chloride Level 105 MEQ/L Carbon Dioxide Level 25.7 MEQ/L Anion Gap 8 MEQ/L Estimat Glomerular Filtration Rate 57 ML/MIN Total Creatine Kinase 126 U/L Creatine Kinase MB 1.1 NG/ML Troponin I LESS THAN 0.02 NG/ML B-Type Natriuretic Peptide 40 PG/ML MDM Medical Decision Making Medical Screen Exam Complete: Yes Emergency Medical Condition: Yes Medical Record Reviewed: Yes Interpretation(s) EKG at 1633: Normal sinus rhythm at 91 beats per minute, QT/QTC 338/386, there are no acute ST or T-wave changes Differential Diagnosis Pneumonia, asthma exacerbation, bronchitis, arrhythmia, ACS, PE, CHF exacerbation Narrative Course During the course of the patients emergency department visit, the patients history, examination, and differential diagnosis were reviewed with the patient. The patient was placed on a radiographer cardiac catheterization with oximetry and frequent blood pressure monitoring. The patient had a 20-gauge IV access obtained and blood work sent for analysis. The patient was initially provided sublingual nitroglycerin to see if this provides symptomatic relief or chest pain. Patient also complains of shortness of breath, she does have history of asthma, she has decreased breath sounds on evaluation, IV Solu-Medrol as well as nebulizer treatments were ordered. Patient did take 2 baby aspirins prior to coming to the emergency room. The patients laboratory studies were reviewed and remarkable for: CBC & BMP Diagram 03/06/17 16:59 Total Protein 6.6, Albumin 3.2 L, Calcium Level 8.5, Magnesium Level 2.1, Alkaline Phosphatase 67, Aspartate Amino Transf (AST/SGOT) 14 L, Alanine Aminotransferase (ALT/SGPT) 30, Total Bilirubin 0.3 trop: 0.02 BNP: 40 Radiology studies were reviewed and remarkable for: Last Impressions Chest X-Ray 03/06/17 1646 Signed Impressions: Service Date/Time: Monday, March 06, 2017 17:24 - CONCLUSION: Stable chest appearance Gaurav Wells MD Patient with no relief of chest pain after 3 SL nitro. Patient will require observation to the hospital at this time. US of le's: no dvt Plan to obs for chest pain. Case reviewed with Dr. Garcia who accepts pt to service Diagnosis Primary Impression: Chest pain Qualified Codes: R07.9 - Chest pain, unspecified Admitting Information Admitting Physician Requests: Observation Ange Reyna DO Mar 06, 2017 16:55
[2017-03-06] MEDS ORDERED: methylPREDNISolone SOD SUCC 125 MG/2 ML VIAL IV PUSH ONE (17:00)
[2017-03-06] MEDS ORDERED: ASPIRIN 81 MG CHEW TAB PO ONE (17:00)
[2017-03-06] MEDS ORDERED: SODIUM CHLORIDE 0.9% FLUSH 10 ML FLUSH IVF PRN (17:00)
[2017-03-06 17:07] LABS: HEMATOCRIT 34.4 % (35.0-46.0); MEAN CELL VOLUME 88.6 FL (80.0-100.0); MEAN CORPUSCULAR HEMOGLOBIN 29.1 PG (27.0-34.0); MEAN CORPUSCULAR HGB CONC 32.9 % (32.0-36.0); PLATELET COUNT 311 TH/MM3 (150-450); RED BLOOD COUNT 3.89 MIL/MM3 (4.00-5.30); RED CELL DISTRIBUTION WIDTH 16.4 % (11.6-17.2); WHITE BLOOD COUNT 10.2 TH/MM3 (4.0-11.0)
[2017-03-06] MEDS: RESP: ALBUTEROL 2.5 MG/IPRATROPIUM 0.5 MG NEB (SCH) INH ×3 (17:08→17:21)
[2017-03-06 17:24] LABS: HEMO FLAGS AUTO DIFF
[2017-03-06 17:26] LABS: CHLORIDE 105 MEQ/L (98-107); POTASSIUM 4.8 MEQ/L (3.5-5.1); SODIUM (NA) 139 MEQ/L (136-145)
[2017-03-06 17:30] LABS: ANION GAP 8 MEQ/L (5-15); BICARBONATE 25.7 MEQ/L (21.0-32.0); BLOOD UREA NITROGEN 22 MG/DL (7-18); MAGNESIUM 2.1 MG/DL (1.5-2.5)
[2017-03-06 17:31] LABS: INTERNATIONAL NORMALIZED RATIO 0.9 RATIO; PROTHROMBIN TIME - PATIENT 9.5 SEC (9.8-11.6)
[2017-03-06 17:33] LABS: ALT (GPT) 30 U/L (10-53); AST (GOT) 14 U/L (15-37); GLOMERULAR FILTRATION RATE 57 ML/MIN (>89)
[2017-03-06 17:35] LABS: TOTAL BILIRUBIN ADULT 0.3 MG/DL (0.2-1.0)
[2017-03-06 17:36] LABS: ALKALINE PHOSPHATASE 67 U/L (45-117); CREATINE KINASE 126 U/L (26-192)
--- NOTE | 2017-03-06 17:40 | RADRPT ---
EXAM DATE/TIME: 03/06/2017 17:24 [facility] COMPARISON: CHEST SINGLE AP, February 05, 2017, 6:57. INDICATIONS : Short of breath for 1 week. MEDICAL HISTORY : Thyroid disease. Dyslipidemia. CAD. Hypercholesterol. Afib. COPD. SURGICAL HISTORY : Parathyroid surgery. Kidney stones removed. Bladder surgery. ENCOUNTER: Initial ACUITY: 1 week PAIN SCORE: 2/10 LOCATION: Bilateral chest FINDINGS: Chest is stable in appearance. There is minimal streaky basilar opacity primarily on the left. There is slight diffuse interstitial prominence. Ectatic for rotation, the cardiac contours are stable. The re are surgical clips in the low neck which may relate to previous thyroidectomy. CONCLUSION: Stable chest appearance Gaurav Wells MD on March 06, 2017 at 17:37 Board Certified Radiologist. This report was verified electronically.
[2017-03-06 17:45] LABS: BANDS 1 % (0-6); NEUTROPHIL # MANUAL DIFF 9.1 TH/MM3 (1.8-7.7); PLATELET ESTIMATE SMEAR NORMAL (NORMAL); PLATELET MORPHOLOGY NORMAL (NORMAL); POLYS (SEG NEUTROPHILS) 88 % (16-70); SCAN/DIFF FINAL DIFF MANUAL; WBC DIFF SAMPLE 100
[2017-03-06 17:49] LABS: CKMB 1.1 NG/ML (0.5-3.6)
--- NOTE | 2017-03-06 18:33 | RADRPT ---
EXAM DATE/TIME: 03/06/2017 22:56 [facility] COMPARISON: No previous studies available for comparison. INDICATIONS : Bilateral leg swelling. MEDICAL HISTORY : Hypercholesterolemia. Chronic obstructive pulmonary disease. Thyroid disease. Atrial fibrillation. Coronary artery disease. Diverticulitis. Kidney stones. Arthritis. Anxiety . Right foot cancer. SURGICAL HISTORY : Hysterectomy. Bladder lift. Parathyroid surgery. Angioplasty, right leg. ENCOUNTER: Subsequent ACUITY: 1 month PAIN SCORE: 4/10 LOCATION: Bilateral legs. TECHNIQUE: Venous ultrasound of the left and right leg was performed from the inguinal ligament t o the proximal calf. Real-time, color Doppler and spectral tracing, compression and augmentation ulises hniques were used. FINDINGS: RIGHT LEG: There is normal compressibility of the deep venous system from the inguinal region to the proximal calf. No echogenic clot is seen in the lumen of the common femoral, femoral, popliteal, and posterior tibial veins. There is a normal response of the venous system to proximal and distal augmentation and respiration. LEFT LEG: There is normal compressibility of the deep venous system from the inguinal region to t he proximal calf. No echogenic clot is seen in the lumen of the common femoral, femoral, popliteal, and posterior tibial veins. There is a normal response of the venous system to proximal and distal a ugmentation and respiration. CONCLUSION: No DVT in either lower extremity Yves Randle MD on March 06, 2017 at 18:30 Board Certified Radiologist. This report was verified electronically.
--- NOTE | 2017-03-06 20:00 | EKG ---
Date Performed: 03/06/2017 Time Performed: 16:33:58 PTAGE: 76 years EKG: Sinus rhythm NORMAL ECG Compared to prior electrocardiogram, Premature atrial contraction no longer present. PREVIOUS TRACING : 01/31/2017 18.05 DOCTOR: Igor Murdock Interpretating Date/Time 03/06/2017 19:58:33
[2017-03-06] MEDS ORDERED: SODIUM CHLORIDE 0.9% FLUSH 10 ML FLUSH IV FLUSH PRN (20:15)
[2017-03-06] MEDS ORDERED: NITROGLYCERIN 0.4 MG SL 25 TABS/BTL SL PRN (20:15)
[2017-03-06] MEDS ORDERED: RESP: ALBUTEROL 2.5 MG/IPRATROPIUM 0.5 MG NEB (PRN) NEB (22:45)
[2017-03-06] MEDS ORDERED: MIRTAZAPINE 15 MG TAB PO ONE (22:45)
[2017-03-06] MEDS: HEPARIN SODIUM - SQ 10,000 UNITS/ML VIAL SQ SCH (23:15)
[2017-03-06] MEDS: SODIUM CHLORIDE 0.9% FLUSH 10 ML FLUSH IV FLUSH SCH (23:15)
[2017-03-06 23:23] LABS: CREATINE KINASE 116 U/L (26-192)
[2017-03-07] VITALS (7 sets, daily range): BP systolic 128–151; BP diastolic 62–75; PULSE 88–100; RESP 20; TEMP 97.4–98.7; O2SAT 95–98
--- NOTE | 2017-03-07 04:53 | EKG ---
Date Performed: 03/06/2017 Time Performed: 22:40:24 PTAGE: 76 years EKG: Sinus rhythm WITH OCCASIONAL VENTRICULAR PREMATURE COMPLEXES BORDERLINE ECG Compared to prior electrocardiogram, Premature ventricular contractions are now present . PREVIOUS TRACING : 03/06/2017 16.33 DOCTOR: Igro Murdock Interpretating Date/Time 03/07/2017 04:52:44
[2017-03-07] MEDS: HEPARIN SODIUM - SQ 10,000 UNITS/ML VIAL SQ SCH ×3 (05:20→21:46)
[2017-03-07] MEDS: MORPHINE SULFATE 4 MG/ML INJ IV PUSH PRN (05:26)
[2017-03-07 06:43] LABS: AUTOMATED NEUTROPHIL # 9.2 TH/MM3 (1.8-7.7); BASOPHIL % 0.2 % (0.0-2.0); EOSINOPHIL % 0.1 % (0.0-4.0); HEMATOCRIT 32.2 % (35.0-46.0); LYMPH % 8.5 % (9.0-44.0); LYMPHOCYTE # 0.9 TH/MM3 (1.0-4.8); MEAN CELL VOLUME 86.4 FL (80.0-100.0); MEAN CORPUSCULAR HEMOGLOBIN 28.4 PG (27.0-34.0); MEAN CORPUSCULAR HGB CONC 32.9 % (32.0-36.0); MONO % 0.5 % (0.0-8.0); NEUT % 90.7 % (16.0-70.0); PLATELET COUNT 274 TH/MM3 (150-450); RED BLOOD COUNT 3.73 MIL/MM3 (4.00-5.30); RED CELL DISTRIBUTION WIDTH 15.3 % (11.6-17.2); WHITE BLOOD COUNT 10.2 TH/MM3 (4.0-11.0)
[2017-03-07 06:56] LABS: CHLORIDE 104 MEQ/L (98-107); POTASSIUM 4.5 MEQ/L (3.5-5.1); SODIUM (NA) 141 MEQ/L (136-145)
[2017-03-07 06:58] LABS: HEMO FLAGS DIFF FINAL
[2017-03-07 07:03] LABS: ANION GAP 13 MEQ/L (5-15); BICARBONATE 24.1 MEQ/L (21.0-32.0); BLOOD UREA NITROGEN 23 MG/DL (7-18)
[2017-03-07 07:06] LABS: GLOMERULAR FILTRATION RATE 84 ML/MIN (>89)
--- NOTE | 2017-03-07 07:07 | EKG ---
Date Performed: 03/07/2017 Time Performed: 04:48:16 PTAGE: 76 years EKG: Sinus rhythm NORMAL ECG Compared to prior electrocardiogram, Premature ventricular contractions no longer present . PREVIOUS TRACING : 03/06/2017 22.40 DOCTOR: Igor Murdock Interpretating Date/Time 03/07/2017 07:05:39
[2017-03-07 07:09] LABS: CREATINE KINASE 115 U/L (26-192)
[2017-03-07] MEDS ORDERED: NON-FORMULARY DRUG (Fluticasone-Salmeterol Inh (Advair Diskus Inh) 2 PUFF) INH SCH (09:00)
[2017-03-07] MEDS ORDERED: predniSONE 20 MG TAB PO SCH (09:00)
[2017-03-07] MEDS ORDERED: ASPIRIN EC 81 MG TABEC PO SCH (09:00)
[2017-03-07] MEDS: SODIUM CHLORIDE 0.9% FLUSH 10 ML FLUSH IV FLUSH SCH ×2 (09:52→21:46)
[2017-03-07] MEDS: BUDESONIDE-FORMOTEROL 160/4.5 MCG INHALER INH SCH ×2 (09:53→21:58)
[2017-03-07] MEDS: DILTIAZEM-CD 180 MG CAP ER PO SCH (09:53)
[2017-03-07] MEDS: ASPIRIN 325 MG TAB PO SCH (09:53)
--- NOTE | 2017-03-07 10:41 | HHI.HP ---
[facility] Pilo Alarcon MD Admission Diagnosis Chest pain Diagnoses: (1) Chest pain Diagnosis: Principal (2) COPD (chronic obstructive pulmonary disease) Diagnosis: Principal Chief Complaint: Chest pain and increasing dyspnea Travel History International Travel<30 Days: No Contact w/Intl Traveler <30 Da: No Traveled to Known Affected Are: No History of Present Illness Mrs. Driscoll is a 76-year-old female patient with a known medical history of COPD, dyslipidemia, and atrial fibrillation who presented to the ED with complaints of chest discomfort and worsening dyspnea. Patient states that she has noticed increasing shortness of breath for the past 4 days with a noted 4 pound weight gain in that time. Patient states that she becomes increasingly short of breath with any activity. She also states that she has noticed an intermittent chest discomfort for the past 2-3 months, it is usually is located in her midsternal chest with some radiation between her shoulder blades in her back, rated a 7/10 at its worse on pain scale, heavy and tight in nature, lasts just a few minutes then will subside. Patient states that breathing deep has made the pain worse with rest reliving the pain. Does admit to bilateral lower extremity edema x 4 days as well. Denies any associated nausea, vomiting or diaphoresis. Patient follows with Dr. Oquendo for her COPD, was last seen in January, has placed patient on daily PO steroids. Patient sees Dr. Reed, cardiology and was last seen yesterday for worsening edema and shortness of breath. Patient does admit to a recent hospitalization in January for COPD exacerbation, discharged to Rehab and then home. She does state since that time she has not felt very well regarding her breathing. Denies any recent fever, chills, headache, abdominal pain, n/v/d or dysuria. Review of Systems Constitutional: DENIES: Fever, Chills Eyes: DENIES: Blurred vision Respiratory: COMPLAINS OF: Shortness of breath, DENIES: Cough, Sputum production Cardiovascular: COMPLAINS OF: Chest pain, Dyspnea on Exertion, Lower Extremity Edema, DENIES: Palpitations, Syncope Gastrointestinal: DENIES: Abdominal pain, Black stools, Bloody stools, Constipation, Diarrhea, Nausea, Vomiting Musculoskeletal: DENIES: Joint pain Psychiatric: COMPLAINS OF: Anxiety Except as stated in HPI: all other systems reviewed are Neg Past Family Social History Past Medical History Anxiety, HTN, Hypothyroidism and COPD Past Surgical History Parathyroidectomy, Bladder Lift, Hysterectomy Reported Medications Active Mirtazapine 15 Mg Tab 7.5 Mg PO HS Hydrocodone-Acetaminophen 5-325 mg Tab 1 Tab PO Q6H PRN Adult Aspirin EC Low Strength (Aspirin) 81 Mg Tabec 162 Mg PO DAILY Cardizem CD 24 HR (Diltiazem CD 24 HR) 180 Mg Caper 360 Mg PO DAILY Duoneb (Ipratropium-Albuterol Neb) 0.5-2.5 Mg/3 Ml Neb 1 Ampule NEB QID NEB Walker with Front Wheels (Device) 1 Mis Mis Ea .ROUTE DIRECTED Deltasone (Prednisone) 20 Mg Tab 20 Mg PO BID 5 Days Proventil Hfa 6.7 GM Inh (Albuterol Sulfate) 90 Mcg/Act Aer 1 Puff INH Q4H PRN Reported Albuterol Neb (Albuterol Sulfate) 1.25 Mg/3 Ml Neb 1.25 Mg NEB QID NEB PRN Advair Diskus Inh (Fluticasone-Salmeterol Inh) 500-50 Mcg/Blist Aer 2 Puff INH BID Rinse mouth after use. Allergies: Coded Allergies: diatrizoate meglumine (Unverified Allergy, Unknown, Shortness of Breath, ) gadobenic acid (Unverified Allergy, Unknown, Shortness of Breath, 11/21/16) gadodiamide (Unverified Allergy, Unknown, Shortness of Breath, 11/21/16) gadoteridol (Unverified Allergy, Unknown, Shortness of Breath, 11/21/16) iodixanol (Unverified Allergy, Unknown, Shortness of Breath, 11/21/16) iohexol (Unverified Allergy, Unknown, Shortness of Breath, 11/21/16) Active Ordered Medications Current Medications Medications (Trade) Dose Ordered Sig/Rocky Route Start Time Stop Time Status Last Admin (NS Flush) 2 ml BID IV FLUSH 03/06/17 21:00 03/07/17 09:52 (NS Flush) 2 ml UNSCH PRN IV FLUSH 03/06/17 20:15 03/07/17 05:26 (Aspirin) 325 mg DAILY PO 03/07/17 09:00 03/07/17 09:53 (Nitrostat Sl) 0.4 mg Q5M PRN SL 03/06/17 20:15 (Morphine Inj) 2 mg Q3HR PRN IV PUSH 03/06/17 20:15 03/07/17 05:26 (Heparin Inj) 5,000 units Q8H SQ 03/06/17 21:00 03/07/17 05:20 (Ecotrin Ec) 162 mg DAILY PO 03/07/17 09:00 03/07/17 09:53 (Cardizem Cd) 360 mg DAILY PO 03/07/17 09:00 03/07/17 09:53 (Remeron) 7.5 mg HS PO 03/07/17 21:00 (Deltasone) 20 mg BID PO 03/07/17 09:00 03/07/17 09:53 (Duoneb Neb) 1 ampule Q4HR NEB PRN NEB 03/06/17 22:45 (Symbicort 160-4.5 Inh) 2 puff BID INH 03/07/17 09:00 03/07/17 09:53 Family History Maternal medical history significant for DM. Social History Denies any tobacco use. Denies any alcohol use. Denies any illicit drug use. Physical Exam Vital Signs Vital Signs Date Time Temp Pulse Resp B/P (MAP) Pulse Ox O2 Delivery O2 Flow Rate FiO2 03/07/17 08:57 97.8 92 20 137/66 (89) 95 03/07/17 04:00 97.4 88 20 130/63 (85) 95 03/06/17 23:25 96 21 03/06/17 22:30 85 03/06/17 22:05 97.1 87 20 133/60 (84) 97 03/06/17 21:01 98.2 89 15 128/63 (84) 97 03/06/17 18:25 98.5 86 22 133/65 (87) 96 Room Air 03/06/17 17:20 87 28 101/58 (72) 03/06/17 17:15 82 28 129/61 (83) 96 Room Air 03/06/17 17:15 28 1128/17 17:07 89 132/55 (80) 03/06/17 16:55 Room Air 03/06/17 16:35 98.6 90 30 145/85 (105) 96 Physical Exam GENERAL: This is a well-nourished, well-developed female patient, lying in bed in no apparent distress. SKIN: No rashes, ecchymoses or lesions. Warm and dry. HEAD: Atraumatic. Normocephalic. Pupils equal round and reactive. Extraocular motions intact. No scleral icterus. No injection or drainage. Nose without bleeding. Airway patent. NECK: Trachea midline. No JVD. Supple. CARDIOVASCULAR: Regular rate and rhythm without murmurs, gallops, or rubs. RESPIRATORY: Expiratory wheezing noted throughout bilateral base lung tate. Breath sounds equal bilaterally. No wheezes, rales, or rhonchi. GASTROINTESTINAL: Abdomen soft, non-tender, nondistended. No guarding. MUSCULOSKELETAL: Extremities without clubbing, cyanosis. No joint tenderness, effusion, or edema noted. Bilateral lower extremity edema 1+. NEUROLOGICAL: Awake and alert. Cranial nerves II through XII intact. Motor and sensory grossly within normal limits. Five out of 5 muscle strength in all muscle groups. Normal speech. Laboratory Laboratory Tests Test 03/06/17 16:59 03/06/17 22:50 03/07/17 05:00 White Blood Count 10.2 10.2 Red Blood Count 3.89 3.73 Hemoglobin 11.3 10.6 Hematocrit 34.4 32.2 Mean Corpuscular Volume 88.6 86.4 Mean Corpuscular Hemoglobin 29.1 28.4 Mean Corpuscular Hemoglobin Concent 32.9 32.9 Red Cell Distribution Width 16.4 15.3 Platelet Count 311 274 Mean Platelet Volume 7.8 7.9 CBC Comment AUTO DIFF DIFF FINAL Differential Total Cells Counted 100 Neutrophils % (Manual) 88 Band Neutrophils % 1 Lymphocytes % 8 Monocytes % 3 Neutrophils # (Manual) 9.1 Differential Comment FINAL DIFF MANUAL Platelet Estimate NORMAL Platelet Morphology Comment NORMAL Prothrombin Time 9.5 Prothromb Time International Ratio 0.9 Activated Partial Thromboplast Time 24.0 Blood Urea Nitrogen 22 23 Creatinine 0.95 0.68 Random Glucose 140 155 Total Protein 6.6 Albumin 3.2 Calcium Level 8.5 8.2 Magnesium Level 2.1 Alkaline Phosphatase 67 Aspartate Amino Transf (AST/SGOT) 14 Alanine Aminotransferase (ALT/SGPT) 30 Total Bilirubin 0.3 Sodium Level 139 141 Potassium Level 4.8 4.5 Chloride Level 105 104 Carbon Dioxide Level 25.7 24.1 Anion Gap 8 13 Estimat Glomerular Filtration Rate 57 84 Total Creatine Kinase 126 116 115 Creatine Kinase MB 1.1 Troponin I LESS THAN 0.02 LESS THAN 0.02 LESS THAN 0.02 B-Type Natriuretic Peptide 40 Neutrophils (%) (Auto) 90.7 Lymphocytes (%) (Auto) 8.5 Monocytes (%) (Auto) 0.5 Eosinophils (%) (Auto) 0.1 Basophils (%) (Auto) 0.2 Neutrophils # (Auto) 9.2 Lymphocytes # (Auto) 0.9 Monocytes # (Auto) 0.1 Eosinophils # (Auto) 0.0 Basophils # (Auto) 0.0 Result Diagram: 03/07/17 0500 03/07/17 0500 Imaging Last Impressions Chest X-Ray 03/06/17 1646 Signed Impressions: Service Date/Time: Monday, March 06, 2017 17:24 - CONCLUSION: Stable chest appearance Gaurav Wells MD Lower Extremity Ultrasound 03/06/17 0000 Signed Impressions: Service Date/Time: Monday, March 06, 2017 22:56 - CONCLUSION: No DVT in either lower extremity MD Silva Galeas VTE Risk Assessment Silva VTE Risk Assessment: Mod/High Risk (score >= 2) Caprini Risk Assessment Model Point Value = 1 Point Value = 2 Point Value = 3 Point Value = 5 Age 41-60 Minor surgery BMI > 25 kg/m2 Swollen legs Varicose veins or History of unexplained or recurrent spontaneous Oral contraceptives or hormone replacement Sepsis (< 1 month) Serious lung disease, including pneumonia (< 1 month) Abnormal pulmonary function Acute myocardial infarction Congestive heart failure (< 1 month) History of inflammatory bowel disease Medical patient at bed rest Age 61-74 Arthroscopic surgery Major open surgery (> 45 min) Laparoscopic surgery (> 45 min) Malignancy Confined to bed (> 72 hours) Immobilizing plaster cast Central venous access Age >= 75 History of VTE Family history of VTE Factor V Leiden Prothrombin [id number] Lupus anticoagulant Anticardiolipin antibodies Elevated serum homocysteine Heparin-induced thrombocytopenia Other congenital or acquired thrombophilia Stroke (< 1 month) Elective arthroplasty Hip, pelvis, or leg fracture Acute spinal cord injury (< 1 month) Prophylaxis Regimen Total Risk Factor Score Risk Level Prophylaxis Regimen 0-1 Low Early ambulation 2 Moderate Order ONE of the following: *Sequential Compression Device (SCD) *Heparin 5000 units SQ BID 3-4 Higher Order ONE of the following medications: *Heparin 5000 units SQ TID *Enoxaparin/Lovenox 40 mg SQ daily (WT < 150 kg, CrCl > 30 mL/min) *Enoxaparin/Lovenox 30 mg SQ daily (WT < 150 kg, CrCl > 10-29 mL/min) *Enoxaparin/Lovenox 30 mg SQ BID (WT < 150 kg, CrCl > 30 mL/min) AND/OR *Sequential Compression Device (SCD) 5 or more Highest Order ONE of the following medications: *Heparin 5000 units SQ TID (Preferred with Epidurals) *Enoxaparin/Lovenox 40 mg SQ daily (WT < 150 kg, CrCl > 30 mL/min) *Enoxaparin/Lovenox 30 mg SQ daily (WT < 150 kg, CrCl > 10-29 mL/min) *Enoxaparin/Lovenox 30 mg SQ BID (WT < 150 kg, CrCl > 30 mL/min) AND *Sequential Compression Device (SCD) Assessment and Plan Problem List: (1) Chest pain ICD Code: R07.9 - Chest pain, unspecified Status: Chronic Plan: Patient has been admitted to the chest pain center will make inpatient due to COPD exacerbation as well. Serial EKGs and serial troponins were ordered for ACS ruling out purposes. Serial troponin flat. EKG reviewed showing occasional PVCs otherwise SR, HR 87, no ST changes noted. Placed on cardiac telemetry to rule out any presence of arrhythmias. Started on Aspirin. Will check a lipid panel, denies any prior dyslipidemia. Continue Diltiazem. Patient will undergo a cardiac stress test to rule out any other possibility of ischemia. Further hospitalization will depend on nuclear imaging results. Follow. Supportive care. Control pain, Morphine IV available PRN. Nitroglycerin SL available PRN. (2) COPD (chronic obstructive pulmonary disease) ICD Code: J44.9 - Chronic obstructive pulmonary disease, unspecified Status: Acute Plan: Patient with increasing dyspnea during activity. CXR reviewed showing stable chest. Patient is afebrile. WBC WNL. BNP 40. Venous ultrasound of lower extremities reviewed showing no DVT. Was given Methylprednisone 125 mg IV in ED. Will start on IV steroids. Hold home PO steroids for now. Will start on IV antibiotics, Azithromycin IV and Doxycycline IV Continue home Symbicort inhaler. Duonebs available PRN. Continue supplemental O2 to keep sats >92%. (3) HTN (hypertension) ICD Code: I10 - Essential (primary) hypertension Plan: Continue home regimen. Monitor BP trends. DVT Prophylaxis: SCDs. Heparin sq. (4) Paroxysmal atrial fibrillation ICD Code: I48.0 - Paroxysmal atrial fibrillation Status: Resolved Plan: Continue home Cardizem. Problem Qualifiers (1) Chest pain: Qualified Codes: R07.9 - Chest pain, unspecified (2) COPD (chronic obstructive pulmonary disease): Qualified Codes: J44.1 - Chronic obstructive pulmonary disease with (acute) exacerbation Kala Sanon Mar 07, 2017 10:41
[2017-03-07] MEDS ORDERED: DEXTROSE 50% IN WATER 50 ML VIAL(D50) IV PUSH PRN (13:15)
[2017-03-07] MEDS ORDERED: GLUCAGON 1 MG/ML VIAL OTHER PRN (13:15)
[2017-03-07] MEDS ORDERED: AMINOPHYLLINE INJ 250 MG/10 ML VIAL IV ONE (13:36)
--- NOTE | 2017-03-07 13:56 | TR ---
Date Performed: 03/07/2017 Time Performed: 13:15:24 DOCTOR: Osvaldo Tai DRUG LIST: CLINICAL HISTORY: REASON FOR TEST: Chest pain REASON FOR ENDING: OBSERVATION: CONCLUSION: Lexiscan stress test was performed under standard four minute protocol. Radionuclid e was injected one minute prior to ending the test. No electrocardiographic abormalities were present to suggest ischemia. Nuclear imaging and interpretation are pending. COMMENTS:
--- NOTE | 2017-03-07 14:28 | RADRPT ---
EXAM DATE/TIME: 03/07/2017 12:12 [place] COMPARISON: No previous studies available for comparison. INDICATIONS : Chest discomfort with dyspnea. Angina. DOSE: 26.8 mCi Tc99m Myoview at stress. 8.8 mCi Tc99m Myoview at rest. 0.4 mg Lexiscan STRESS SYMPTOMS: Chest and head pressure. EJECTION FRACTION: 70% MEDICAL HISTORY : Hypercholesterolemia. Chronic obstructive pulmonary disease. SURGICAL HISTORY : Hysterectomy. ENCOUNTER: Initial ACUITY: 1 day PAIN SCALE: 4/10 LOCATION: chest TECHNIQUE: The patient underwent pharmacologic stress with infusion of prescribed dose. Continuous ECG tracing was monitored during stress. Gated SPECT imaging was performed after stress and conventional SPECT i maging was performed at rest. The examination was performed on a SPECT/CT scanner, both attenuation and non-corrected datasets were reviewed. FINDINGS: DISTRIBUTION: The maximum perfused segment at stress is in the anterolateral wall. PERFUSION STUDY: The pattern of perfusion at stress is within normal limits. GATED STUDY: There is intact wall motion and thickening without hypokinetic or dyskinetic segments. CONCLUSION: Normal examination. RISK CATEGORY: Low (<1% Annual Mortality Rate) Gaurav Wells MD on March 07, 2017 at 14:23 Board Certified Radiologist. This report was verified electronically.
[2017-03-07] MEDS: RESP: ALBUTEROL 2.5 MG/IPRATROPIUM 0.5 MG NEB (SCH) NEB ×2 (15:07→20:44)
[2017-03-07] MEDS: AZITHROMYCIN INJ 500 MG in SODIUM CHLOR 0.9% 250 ML INJ 250 ML IV SCH (15:34)
[2017-03-07] MEDS: methylPREDNISolone SOD SUCC 40 MG/1 ML VIAL IV PUSH SCH ×3 (15:34→22:41)
[2017-03-07] MEDS: DOXYCYCLINE INJ 100 MG in SODIUM CHLORIDE 0.9% INJ 100 ML IV SCH (15:34)
[2017-03-07 17:00] LABS: HDL CHOLESTEROL 105.1 MG/DL (40.0-60.0)
[2017-03-07] MEDS: INSULIN ASPART SUPPLEMENTAL SCALE SQ SCH ×2 (17:00→21:45)
[2017-03-07] MEDS ORDERED: REGADENOSON INJ 0.4 MG/5 ML SYR IV ONE ×2 (19:27)
[2017-03-07] MEDS ORDERED: MIRTAZAPINE 15 MG TAB PO SCH (21:00)
[2017-03-07] MEDS ORDERED: ACETAMINOPHEN 325 MG TAB PO ONE (22:15)
[2017-03-08] VITALS: BP 128/62; PULSE 100; RESP 20; TEMP 98.7; O2SAT 97
[2017-03-08] MEDS: DOXYCYCLINE INJ 100 MG in SODIUM CHLORIDE 0.9% INJ 100 ML IV SCH (04:00)
[2017-03-08] MEDS: MORPHINE SULFATE 4 MG/ML INJ IV PUSH PRN (04:47)
[2017-03-08] MEDS: HEPARIN SODIUM - SQ 10,000 UNITS/ML VIAL SQ SCH ×2 (05:14→13:00)
[2017-03-08 06:11] LABS: AUTOMATED NEUTROPHIL # 13.4 TH/MM3 (1.8-7.7); BASOPHIL % 0.1 % (0.0-2.0); EOSINOPHIL % 0.1 % (0.0-4.0); HEMATOCRIT 33.8 % (35.0-46.0); LYMPH % 5.4 % (9.0-44.0); LYMPHOCYTE # 0.8 TH/MM3 (1.0-4.8); MEAN CELL VOLUME 86.8 FL (80.0-100.0); MEAN CORPUSCULAR HEMOGLOBIN 27.9 PG (27.0-34.0); MEAN CORPUSCULAR HGB CONC 32.2 % (32.0-36.0); MONO % 1.8 % (0.0-8.0); NEUT % 92.6 % (16.0-70.0); PLATELET COUNT 296 TH/MM3 (150-450); RED BLOOD COUNT 3.89 MIL/MM3 (4.00-5.30); RED CELL DISTRIBUTION WIDTH 15.2 % (11.6-17.2); WHITE BLOOD COUNT 14.5 TH/MM3 (4.0-11.0)
[2017-03-08 06:14] LABS: HEMO FLAGS DIFF FINAL
[2017-03-08 06:23] LABS: POTASSIUM 4.2 MEQ/L (3.5-5.1)
[2017-03-08 06:31] LABS: BICARBONATE 24.8 MEQ/L (21.0-32.0)
[2017-03-08] MEDS: methylPREDNISolone SOD SUCC 40 MG/1 ML VIAL IV PUSH SCH ×2 (06:32→12:00)
[2017-03-08 08:00] VITALS: BP 159/82; PULSE 88; RESP 18; TEMP 98.1; O2SAT 95; O2SAT 96
[2017-03-08] MEDS: RESP: ALBUTEROL 2.5 MG/IPRATROPIUM 0.5 MG NEB (SCH) NEB ×2 (08:00→11:58)
[2017-03-08] MEDS: INSULIN ASPART SUPPLEMENTAL SCALE SQ SCH ×2 (08:00→12:00)
[2017-03-08] MEDS: ASPIRIN 325 MG TAB PO SCH (09:26)
[2017-03-08] MEDS: BUDESONIDE-FORMOTEROL 160/4.5 MCG INHALER INH SCH (09:26)
[2017-03-08] MEDS: DILTIAZEM-CD 180 MG CAP ER PO SCH (09:26)
[2017-03-08] MEDS: SODIUM CHLORIDE 0.9% FLUSH 10 ML FLUSH IV FLUSH SCH (09:27)
--- NOTE | 2017-03-08 10:25 | HHI.PR ---
Subjective Remarks Follow up chest pain and COPD exacerbation. Patient seen and examined, lying in bed comfortably in no apparent distress. Patient states that she feels much better today. Has been able to ambulate to bathroom without dyspnea. Wheezing absent. Patient eager to go home. States she has an appointment with Dr. Oquendo today at 3pm. Denies any fever, chills, cough, headache, ab pain, n/v/d or dysuria. Eating well. VSS. Objective Vitals Vital Signs Date Time Temp Pulse Resp B/P (MAP) Pulse Ox O2 Delivery O2 Flow Rate FiO2 03/08/17 00:00 98.7 100 20 128/62 (84) 97 03/07/17 20:45 97 Nasal Cannula 2.00 03/07/17 20:00 98.6 97 20 151/70 (97) 96 03/07/17 16:00 97.9 97 20 141/72 (95) 97 03/07/17 15:10 98 Nasal Cannula 2.00 03/07/17 12:00 98.4 91 20 135/75 (95) 98 I/O 03/07/17 03/07/17 03/07/17 03/08/17 03/08/17 03/08/17 06:59 14:59 22:59 06:59 14:59 22:59 Intake Total 240 ml 30 ml 940 ml 400 ml Output Total 3 ml Balance 240 ml 30 ml 940 ml 397 ml Intake Oral 240 ml 30 ml 480 ml 300 ml IV Total 460 ml 100 ml Output Urine Total 3 ml # Voids 2 3 3 # Bowel Movements 0 1 2 Result Diagram: 03/08/17 0550 03/08/17 0550 Imaging Last Impressions Myocardial Perfusion Scan Nuc Med 03/07/17 0000 Signed Impressions: Service Date/Time: Tuesday, March 07, 2017 12:12 - CONCLUSION: Normal examination. RISK CATEGORY: Low (<1%% Annual Mortality Rate) Gaurav Wells MD Chest X-Ray 03/06/17 1646 Signed Impressions: Service Date/Time: Monday, March 06, 2017 17:24 - CONCLUSION: Stable chest appearance Gaurav Wells MD Lower Extremity Ultrasound 03/06/17 0000 Signed Impressions: Service Date/Time: Monday, March 06, 2017 22:56 - CONCLUSION: No DVT in either lower extremity Yves Randle MD Objective Remarks GENERAL: This is a well-nourished, well-developed female patient, lying in bed in no apparent distress. On RA. SKIN: No rashes, ecchymoses or lesions. Warm and dry. HEAD: Atraumatic. Normocephalic. Pupils equal round and reactive. Extraocular motions intact. No scleral icterus. No injection or drainage. Nose without bleeding. Airway patent. NECK: Trachea midline. No JVD. Supple. CARDIOVASCULAR: Regular rate and rhythm without murmurs, gallops, or rubs. RESPIRATORY: Clear breath sounds. Breath sounds equal bilaterally. No wheezes, rales, or rhonchi. GASTROINTESTINAL: Abdomen soft, non-tender, nondistended. No guarding. MUSCULOSKELETAL: Extremities without clubbing, cyanosis. No joint tenderness, effusion, or edema noted. Bilateral lower extremity edema 1+. NEUROLOGICAL: Awake and alert. Cranial nerves II through XII intact. Motor and sensory grossly within normal limits. Five out of 5 muscle strength in all muscle groups. Normal speech. A/P Problem List: (1) Chest pain ICD Code: R07.9 - Chest pain, unspecified Status: Resolved Plan: Patient has been admitted to the chest pain center will make inpatient due to COPD exacerbation as well. Serial EKGs and serial troponins were ordered for ACS ruling out purposes. Serial troponin flat. EKG reviewed showing occasional PVCs otherwise SR, HR 87, no ST changes noted. Placed on cardiac telemetry to rule out any presence of arrhythmias, no presence of arrhythmias. Started on Aspirin. Continue upon discharge. Will check a lipid panel, denies any prior dyslipidemia. Lipid panel reviewed showing hypercholesteremia. Will start on statin. Encouraged to follow up with PCP for recheck and maintenance. Continue Diltiazem. Patient underwent stress test and results reviewed showing no signs of ischemia. Patient given results. Chest pain resolved. (2) COPD (chronic obstructive pulmonary disease) ICD Code: J44.9 - Chronic obstructive pulmonary disease, unspecified Status: Acute Plan: Patient dyspnea improved. CXR reviewed showing stable chest. Patient is afebrile. WBC WNL. BNP 40. Venous ultrasound of lower extremities reviewed showing no DVT. Was given Methylprednisone 125 mg IV in ED. Given IV steroids while hospitalized. Patient seen much improvement. Will continue home predinisone BID and encouraged to follow up with Dr. Oquendo today at the scheduled appointment. Started on Azithromycin IV and Doxycycline IV. Will dc on PO antibiotics as prescribed. Encouraged to complete course. Continue home Symbicort inhaler. Duonebs continued for home. (3) HTN (hypertension) ICD Code: I10 - Essential (primary) hypertension Plan: Continue home regimen. Monitor BP trends. (4) Paroxysmal atrial fibrillation ICD Code: I48.0 - Paroxysmal atrial fibrillation Status: Resolved Plan: Continue home Cardizem. Discharge Planning Discharge patient to home Condition on discharge: Improved Heart healthy as tolerated Ad Olivia activity Rx written: Please see attached notes. Follow-up with primary care physician and Pulmonology today with scheduled appointment. Problem Qualifiers (1) Chest pain: Qualified Codes: R07.9 - Chest pain, unspecified (2) COPD (chronic obstructive pulmonary disease): Qualified Codes: J44.1 - Chronic obstructive pulmonary disease with (acute) exacerbation Kala Sanon Mar 08, 2017 10:25
--- NOTE | 2017-03-08 10:27 | HHI.DCPOC ---
Discharge Care Plan Diagnosis: (1) Chest pain (2) Paroxysmal atrial fibrillation (3) COPD with exacerbation Your Health Problems Are: Anxiety Chest Pain Shortness of Breath Goals to Promote Your Health * To prevent worsening of your condition and complications * To maintain your health at the optimal level Directions to Meet Your Goals Take your medications as prescribed Follow your dietary instruction Follow activity as directed Keep your appointments as scheduled Take your immunizations and boosters as scheduled If your symptoms worsen call your PCP, if no PCP go to Urgent Care Center or Emergency Room Smoking is Dangerous to Your Health. Avoid second hand smoke Call the 24-hour hour crisis hotline for domestic abuse at Kala Sanon Mar 08, 2017 10:27
[2017-03-08] MEDS ORDERED: AZIT500T2 PO (10:29)
[2017-03-08] MEDS ORDERED: NITR0.4S SL (10:29)
[2017-03-08] MEDS ORDERED: DOXY100C PO (10:32)
[2017-03-08] MEDS ORDERED: ATOR20TA15 PO (11:51)
[2017-03-08 12:06] VITALS: BP 160/90; PULSE 102; RESP 20; TEMP 97.9; O2SAT 98
[2017-03-08 12:09] VITALS: BP 160/90; PULSE 102; RESP 20; TEMP 97.9; O2SAT 98
[2017-03-08] MEDS: AZITHROMYCIN INJ 500 MG in SODIUM CHLOR 0.9% 250 ML INJ 250 ML IV SCH (14:00)
== END 2017-03-08 15:11 | disposition home or self-care (01) | DRG 192 ==
LOC: PHED 16:25 → PHEDA 19:26 → PH3A 22:04 → OBSVTOIN 03-07 13:00
PROVIDERS: ADMIT Hospitalist; ATTEND Hospitalist
DX: J44.1 Chronic obstructive pulmonary disease with (acute) exacerbation (principal); I48.0 Paroxysmal atrial fibrillation; I10 Essential (primary) hypertension; E03.9 Hypothyroidism, unspecified; F41.9 Anxiety disorder, unspecified; M19.90 Unspecified osteoarthritis, unspecified site; E78.00 Pure hypercholesterolemia, unspecified; I49.3 Ventricular premature depolarization; R07.2 Precordial pain; R60.0 Localized edema
CPT/HCPCS: 71010; 78452; 80048; 80053; 80061; 82550; 82552; 83735; 83880; 84484; 85007; 85025; 85027; 85610; 85730; 93005; 93017; 93970; 94640; 94664; 96374; A9502; G0378; J0280; J0456; J1644; J1815; J2270; J2785; J2920; J2930; J7050; J7512

== ENCOUNTER 2017-08-15 10:59 | Emergency (ER) | payer OTHER ==
[2017-08-15 11:44] LABS: AUTOMATED NEUTROPHIL # 5.3 TH/MM3 (1.8-7.7); BASOPHIL % 0.4 % (0.0-2.0); EOSINOPHIL # 0.2 TH/MM3 (0-0.4); EOSINOPHIL % 2.9 % (0.0-4.0); HEMATOCRIT 39.2 % (35.0-46.0); HEMO FLAGS DIFF FINAL; HEMOGLOBIN 12.9 GM/DL (11.6-15.3); LYMPH % 22.8 % (9.0-44.0); LYMPHOCYTE # 1.9 TH/MM3 (1.0-4.8); MEAN CELL VOLUME 82.1 FL (80.0-100.0); MEAN CORPUSCULAR HGB CONC 32.9 % (32.0-36.0); MEAN PLATELET VOLUME 8.3 FL (7.0-11.0); MONO % 11.2 % (0.0-8.0); MONOCYTE # 0.9 TH/MM3 (0-0.9); NEUT % 62.7 % (16.0-70.0); PLATELET COUNT 241 TH/MM3 (150-450); RED BLOOD COUNT 4.78 MIL/MM3 (4.00-5.30); RED CELL DISTRIBUTION WIDTH 14.1 % (11.6-17.2); WHITE BLOOD COUNT 8.3 TH/MM3 (4.0-11.0)
[2017-08-15] MEDS: SODIUM CHLORID 0.9% 500 ML INJ 500 ML IV (11:50)
[2017-08-15] MEDS: ONDANSETRON HCL 4 MG/2 ML VIAL IVP (11:50)
[2017-08-15] MEDS: SODIUM CHLORIDE 0.9% FLUSH 10 ML FLUSH IVF (11:51)
[2017-08-15 12:02] LABS: CHLORIDE 91 MEQ/L (98-107); POTASSIUM 3.1 MEQ/L (3.5-5.1); SODIUM (NA) 135 MEQ/L (136-145)
[2017-08-15 12:05] LABS: ALBUMIN 3.6 GM/DL (3.4-5.0); ANION GAP 7 MEQ/L (5-15); BICARBONATE 36.9 MEQ/L (21.0-32.0); CALCIUM 9.4 MG/DL (8.5-10.1)
[2017-08-15 12:06] LABS: BLOOD UREA NITROGEN 20 MG/DL (7-18); GLUCOSE,RANDOM 112 MG/DL (74-106)
[2017-08-15 12:09] LABS: ALT (GPT) 23 U/L (10-53); AST (GOT) 25 U/L (15-37); GLOMERULAR FILTRATION RATE 40 ML/MIN (>89)
[2017-08-15 12:10] LABS: TOTAL BILIRUBIN ADULT 0.8 MG/DL (0.2-1.0); TOTAL PROTEIN 7.1 GM/DL (6.4-8.2)
[2017-08-15 12:11] LABS: ALKALINE PHOSPHATASE 66 U/L (45-117); CREATINE KINASE 485 U/L (26-192)
[2017-08-15 12:13] LABS: TROPONIN I LESS THAN 0.02 NG/ML (0.02-0.05)
[2017-08-15 12:24] LABS: CKMB % 0.2 % (0.0-4.0)
[2017-08-15 13:28] LABS: BILIRUBIN, URINE NEG (NEG); BLOOD, URINE NEG (NEG); GLUCOSE,URINE NEG (NEG); KETONE, URINE NEG (NEG); NITRITE,URINE POS (NEG); PH, URINE 5.5 (5.0-8.5); URINE COLOR YELLOW (YELLW/STRAW); URINE LEUKOCYTE ESTERASE MOD (NEG)
[2017-08-15 13:39] LABS: METHOD OF COLLECTION CLEAN CATCH
[2017-08-15 13:40] LABS: BACTERIA, URINE MANY /hpf; COMMENT (UR) CULTURE INDICATED; CULTURE IF INDICATED CULTURE INDICATED; RBC, URINE 0-3 /hpf (0-3); RENAL EPITHELIAL CELLS 0-5 /hpf
[2017-08-15] MEDS: NITROFURANTOIN MONOHYD MACROCR 100 MG CAP PO (14:00)
[2017-08-15] MEDS: POTASSIUM CHLORIDE 25 MEQ EFFERVESCENT TAB PO (14:01)
== END 2017-08-15 14:50 | disposition home or self-care (01) ==
LOC: PHED 10:59
DX: N39.0 Urinary tract infection, site not specified (principal); B96.20 Unspecified Escherichia coli [E. coli] as the cause of diseases classified elsewhere; E86.0 Dehydration; R11.2 Nausea with vomiting, unspecified; R00.0 Tachycardia, unspecified; R94.31 Abnormal electrocardiogram [ECG] [EKG]
CPT/HCPCS: 70450; 71045; 80053; 81001; 82550; 82552; 84484; 85025; 87077; 87086; 87186; 93005; 96361; 96374; 99285-25

== ENCOUNTER 2017-08-29 18:32 | Inpatient (IN) | payer OTHER, MEDICARE ==
[~2017-08-29] VITALS: Ht 165.1 cm; Wt 70.0 kg
[~2017-08-29 18:32] MED LIST changes: +ATOR20TA15 PO; -CARD180C5 PO; -CEFU1TAB20 PO; +DAILTAB38 PO; +FURO1TAB60 PO; +FURO1TAB62 PO; -HYDR-3516 PO; +MACR100C2 PO; -MELA3TAB19; +METO2.5T PO; +NITR0.4S SL; +OXYC-395 PO; +POTA10CA PO; -PRED-503 PO; +PRED2.5T PO; +VENL75TA PO; -WALKER WHEELS/F1 MIS; +ZOFR4TAB3 SL
[2017-08-29 19:06] VITALS: BP 225/107; PULSE 112; RESP 34; TEMP 99; O2SAT 97
--- NOTE | 2017-08-29 19:29 | PD ---
HPI Chief Complaint: Respiratory Distress Time Seen by Provider: 19:11 Travel History International Travel<30 days: No Contact w/Intl Traveler<30days: No Traveled to known affect area: No History of Present Illness HPI 76yo F with PMH of asthma, HTN, afib, chronic leg pain on oxycodone presents to the ED with c/o sob for a week but worst today. Said she has not been feeling well for a week. +Green sputum. Denies any chest pain but always has chest tightness with her asthma and it feels like her asthma. Follows with animated cartoons painter Dr. Oquendo. Denies any fever, n/v, abdominal pain, focal weakness or numbness. Took her ventolin but didnt help. Pt was recently diagnosed with UTI on 08/15/17 and finished her macrobid. PFSH Past Medical History Hx Anticoagulant Therapy: Yes (asa 81mg) Arthritis: Yes (lower back) Asthma: Yes Atrial Fibrillation: Yes Autoimmune Disease: No Anxiety: Yes Depression: No Heart Rhythm Problems: No Cancer: Yes (RIGHT FOOT) Cardiovascular Problems: Yes (a-fib) High Cholesterol: Yes Chemotherapy: No Chest Pain: No Congestive Heart Failure: No COPD: Yes Cerebrovascular Accident: No Coronary Artery Disease: Yes (Pt reports she has A-Fib) Diabetes: No Diminished Hearing: No Endocrine: Yes Gastrointestinal Disorders: Yes (HX OF CONSTIPATION, TAKES MIRALAX EVERY OTHER DAY) GERD: No Genitourinary: Yes ([employer] BLADDER SURGERY) Headaches: Yes Hiatal Hernia: No Heparin Induced Thrombocytopen: No Hypertension: Yes Immune Disorder: No Implanted Vascular Access Dvce: No Kidney Stones: Yes (2006) Musculoskeletal: Yes Neurologic: Yes Psychiatric: Yes Reproductive: No Respiratory: Yes (asthma) Immunizations Current: Yes Migraines: No Pneumonia: Yes Radiation Therapy: No Renal Failure: No Seizures: No Sickle Cell Disease: No Sleep Apnea: No Thyroid Disease: Yes Menopausal: Yes Past Surgical History Abdominal Surgery: Yes (hysterectomy) AICD: No Arteriovenous Shunt: No Cardiac Surgery: No Ear Surgery: No Endocrine Surgery: Yes (parathyroid surgery) Eye Surgery: No Genitourinary Surgery: Yes (KIDNEY STONES REMOVED 2006) Gynecologic Surgery: Yes ( BLADDER LIFT) Hysterectomy: Yes Insulin Pump: No Joint Replacement: No Oral Surgery: No Pacemaker: No Thoracic Surgery: No Other Surgery: Yes (PARATHYROID SURGERY, angioplasty right leg) Social History Alcohol Use: No Tobacco Use: No Substance Use: No Allergies-Medications (Allergen,Severity, Reaction): Coded Allergies: diatrizoate meglumine (Unverified Allergy, Unknown, Shortness of Breath, ) gadobenic acid (Unverified Allergy, Unknown, Shortness of Breath, 08/29/17) gadodiamide (Unverified Allergy, Unknown, Shortness of Breath, 08/29/17) gadoteridol (Unverified Allergy, Unknown, Shortness of Breath, 08/29/17) iodixanol (Unverified Allergy, Unknown, Shortness of Breath, 08/29/17) iohexol (Unverified Allergy, Unknown, Shortness of Breath, 08/29/17) Reported Meds & Prescriptions Reported Meds & Active Scripts Active Atorvastatin (Atorvastatin Calcium) 20 Mg Tab 20 Mg PO HS Nitrostat SL (Nitroglycerin) 0.4 Mg Subl 0.4 Mg SL Q5M PRN 30 Days Mirtazapine 15 Mg Tab 7.5 Mg PO HS Adult Aspirin EC Low Strength (Aspirin) 81 Mg Tabec 162 Mg PO DAILY Duoneb (Ipratropium-Albuterol Neb) 0.5-2.5 Mg/3 Ml Neb 1 Ampule NEB QID NEB Proventil Hfa 6.7 GM Inh (Albuterol Sulfate) 90 Mcg/Act Aer 1 Puff INH Q4H PRN Reported Prednisone 10 Mg Tab 10 Mg PO DAILY Effexor (Venlafaxine HCl) 75 Mg Tab 75 Mg PO DAILY Oxycodone (Oxycodone HCl) 10 Mg Tab 10 Mg PO Q6H PRN Daily Multiple Vitamin (Multiple Vitamin) 1 Tab Tab 1 Tab PO DAILY Potassium Chloride ER (Potassium Chloride) 10 Meq Cap 10 Meq PO DAILY Lasix (Furosemide) 20 Mg Tab 20 Mg PO DAILY Albuterol Neb (Albuterol Sulfate) 1.25 Mg/3 Ml Neb 1.25 Mg NEB QID NEB PRN Advair Diskus Inh (Fluticasone-Salmeterol Inh) 500-50 Mcg/Blist Aer 2 Puff INH BID Rinse mouth after use. Review of Systems Except as stated in HPI: all other systems reviewed are Neg Physical Exam Narrative GENERAL: 76yo F in mild distress. SKIN: Focused skin assessment warm/dry. HEAD: Atraumatic. Normocephalic. EYES: Pupils equal and round. No scleral icterus. No injection or drainage. ENT: No nasal bleeding or discharge. Mucous membranes pink and moist. NECK: Trachea midline. No JVD. CARDIOVASCULAR: Tachycardic in the low 110s. No murmur appreciated. RESPIRATORY: + accessory muscle use. Decreased breath sounds. Bilateral basilar crackles. GASTROINTESTINAL: Abdomen soft, non-tender, nondistended. MUSCULOSKELETAL: Scoliosis. No obvious deformities. No clubbing. No cyanosis. +Bilateral lower extremity edema. NEUROLOGICAL: Awake and alert. No obvious cranial nerve deficits. Motor grossly within normal limits. Normal speech. PSYCHIATRIC: Appropriate mood and affect; insight and judgment normal. Data Data Last Documented VS Vital Signs Date Time Temp Pulse Resp B/P (MAP) Pulse Ox O2 Delivery O2 Flow Rate FiO2 08/29/17 19:41 105 25 158/78 (104) 97 Room Air 08/29/17 19:06 99.0 Orders Orders Complete Blood Count With Diff (08/29/17 19:20) Basic Metabolic Panel (Bmp) (08/29/17 19:20) B-Type Natriuretic Peptide (08/29/17 19:20) Magnesium (Mg) (08/29/17 19:20) Troponin I (08/29/17 19:20) Urinalysis - C+S If Indicated (08/29/17 19:20) Electrocardiogram (08/29/17 19:20) Chest, Single Ap (08/29/17 19:20) Methylprednisolone So Succ Inj (Solumedr (08/29/17 19:30) Albuterol-Ipratropium Neb (Duoneb Neb) (08/29/17 19:30) Nitroglycerin 2% Oint (Nitroglycerin 2% (08/29/17 20:15) Furosemide Inj (Lasix Inj) (08/29/17 20:30) Admit To Inpatient (08/29/17 ) Vital Signs (Adult) Q4H (08/29/17 21:51) Activity Oob With Assistance (08/29/17 21:51) Housing Quality Standard Inspector / Telemetry .CONTINUOUS (08/29/17 21:51) Diet Heart Healthy (08/30/17 Breakfast) Sodium Chloride 0.9% Flush (Ns Flush) (08/29/17 22:00) Sodium Chloride 0.9% Flush (Ns Flush) (08/30/17 09:00) Acetaminophen (Tylenol) (08/29/17 22:00) Ondansetron Inj (Zofran Inj) (08/29/17 22:00) Resp Oxygen Charly C Titrat 1-4 L (08/29/17 ) Enoxaparin Inj (Lovenox Inj) (08/29/17 22:00) Naloxone Inj (Narcan Inj) (08/29/17 22:00) Magnesium Hydroxide Liq (Milk Of Magnesi (08/29/17 22:00) Sennosides (Senokot) (08/29/17 22:00) Bisacodyl Supp (Dulcolax Supp) (08/29/17 22:00) Lactulose Liq (Lactulose Liq) (08/29/17 22:00) Inpatient Certification (08/29/17 ) Furosemide Inj (Lasix Inj) (08/30/17 09:00) Labs Laboratory Tests Test 08/29/17 19:55 08/29/17 20:50 White Blood Count 8.9 TH/MM3 Red Blood Count 4.00 MIL/MM3 Hemoglobin 10.7 GM/DL Hematocrit 33.8 % Mean Corpuscular Volume 84.6 FL Mean Corpuscular Hemoglobin 26.8 PG Mean Corpuscular Hemoglobin Concent 31.7 % Red Cell Distribution Width 15.6 % Platelet Count 254 TH/MM3 Mean Platelet Volume 9.4 FL Neutrophils (%) (Auto) 79.3 % Lymphocytes (%) (Auto) 11.3 % Monocytes (%) (Auto) 8.9 % Eosinophils (%) (Auto) 0.2 % Basophils (%) (Auto) 0.3 % Neutrophils # (Auto) 7.1 TH/MM3 Lymphocytes # (Auto) 1.0 TH/MM3 Monocytes # (Auto) 0.8 TH/MM3 Eosinophils # (Auto) 0.0 TH/MM3 Basophils # (Auto) 0.0 TH/MM3 CBC Comment DIFF FINAL Differential Comment Blood Urea Nitrogen 17 MG/DL Creatinine 1.05 MG/DL Random Glucose 138 MG/DL Calcium Level 8.6 MG/DL Magnesium Level 2.1 MG/DL Sodium Level 146 MEQ/L Potassium Level 4.2 MEQ/L Chloride Level 111 MEQ/L Carbon Dioxide Level 25.6 MEQ/L Anion Gap 9 MEQ/L Estimat Glomerular Filtration Rate 51 ML/MIN Troponin I LESS THAN 0.02 NG/ML B-Type Natriuretic Peptide 330 PG/ML Urine Color LIGHT-YELLOW Urine Turbidity CLEAR Urine pH 7.0 Urine Specific [place] 1.009 Urine Protein TRACE mg/dL Urine Glucose (UA) NEG mg/dL Urine Ketones NEG mg/dL Urine Occult Blood NEG Urine Nitrite NEG Urine Bilirubin NEG Urine Urobilinogen LESS THAN 2.0 MG/DL Urine Leukocyte Esterase MOD Urine WBC LESS THAN 1 /hpf Urine Squamous Epithelial Cells <1 /hpf Urine Bacteria RARE /hpf Urine Mucus FEW /lpf Microscopic Urinalysis Comment CULT NOT INDICATED MDM Medical Decision Making Medical Screen Exam Complete: Yes Emergency Medical Condition: Yes Interpretation(s) EKG: Sinus tachycardia at 108bpm. Normal axis. +PACs. No significant ST elevation or depression. Differential Diagnosis CHF vs. Asthma exacerbation vs. pneumonia vs. ACS vs. afib RVR vs. UTI vs. dehydration Narrative Course 76yo F with sob for a week but worst today. BP initially was documented as 225/ 107 but repeat BP in room is 185/88. Impression is more CHF or pulmonary edema but pt has asthma and said she feels like she is wheezing so will give duonebs and methylprednisolone. CXR showed interval development of nonconsolidative infiltrates in the perihilar region and upper lungs bilaterally. I reviewed the CXR and looks like pulmonary edema. Pt given nitropaste and lasix 40mg IV. Pt reevaluated after medications and said she still does not feel better. There is some mild end expiratory wheezing bilaterally now. Pt is saturating well. Labs reviewed, no leukocytosis. H/H low at 10.7/33.8 which is at baseline. BNP elevated mildly elevated at 330. Troponin negative. UA showed WBC <1, culture not indicated. Discussed with Dr. Ross and accepted to his service. Critical Care Narrative Aggregate critical care time was 40 minutes. Time to perform other separately billable procedures was not included in the critical care time. My time did not include minutes spent treating any other patients simultaneously or on activities that did not directly contribute to the patient's treatment. The services I provided to this patient were to treat and/or prevent clinically significant deterioration that could result in: Respiratory distress or . I provided critical care services requiring my management, as noted below: Chart data review, documentation time, medication orders and management, vital sign assessments/reviewing monitor data, ordering and reviewing lab tests, ordering and interpreting/reviewing x-rays and diagnostic studies, care of the patient and discussion of the patient with the admitting physicians. Diagnosis Primary Impression: ACUTE PULMONARY EDEMA Additional Impression: Acute asthma exacerbation Qualified Codes: J45.901 - Unspecified asthma with (acute) exacerbation Admitting Information Admitting Physician Requests: Admit Jessica Cruz DO August 29, 2017 19:29
[2017-08-29] MEDS ORDERED: methylPREDNISolone SOD SUCC 125 MG/2 ML VIAL IV PUSH ONE (19:30)
[2017-08-29 19:36] VITALS: BP 185/88; PULSE 105; RESP 24; O2SAT 97
[2017-08-29 19:41] VITALS: BP 158/78; PULSE 105; RESP 25; O2SAT 97
[2017-08-29] MEDS: RESP: ALBUTEROL 2.5 MG/IPRATROPIUM 0.5 MG NEB (SCH) INH ×2 (20:02→20:03)
--- NOTE | 2017-08-29 20:12 | RADRPT ---
EXAM DATE: 08/29/2017 8:09 PM EDT AGE/SEX: 76 years / Female INDICATIONS: Shortness of breath. CLINICAL DATA: This is the patient's initial encounter. Patient reports that signs and symptoms have been present for 1 day and indicates a pain score of 0/10. MEDICAL/SURGICAL HISTORY: None. None. COMPARISON: [facility], CHEST SINGLE AP, 08/15/2017. . FINDINGS: Moderate to patient rotation towards the right. There are new patchy nodular consolidative infiltrate s in the perihilar and upper lungs bilaterally causing loss of delineation of the superior mediastina l reflections. Both hemidiaphragms are well delineated. The heart is mildly enlarged, stable from sunil or. Multiple hemoclips in the lower neck. CONCLUSION: Interval development of nonconsolidative infiltrates in the perihilar region and upper lungs bilatera lly. Electronically signed by: Dev Ram MD 08/29/2017 8:10 PM EDT
[2017-08-29] MEDS ORDERED: NITROGLYCERIN 2% OINT 1 GM PACKET TOPICAL ONE (20:15)
[2017-08-29 20:30] LABS: AUTOMATED NEUTROPHIL # 7.1 TH/MM3 (1.8-7.7); BASOPHIL % 0.3 % (0.0-2.0); EOSINOPHIL % 0.2 % (0.0-4.0); HEMATOCRIT 33.8 % (35.0-46.0); HEMOGLOBIN 10.7 GM/DL (11.6-15.3); LYMPH % 11.3 % (9.0-44.0); MEAN CELL VOLUME 84.6 FL (80.0-100.0); MEAN CORPUSCULAR HEMOGLOBIN 26.8 PG (27.0-34.0); MEAN CORPUSCULAR HGB CONC 31.7 % (32.0-36.0); MEAN PLATELET VOLUME 9.4 FL (7.0-11.0); MONO % 8.9 % (0.0-8.0); MONOCYTE # 0.8 TH/MM3 (0-0.9); NEUT % 79.3 % (16.0-70.0); PLATELET COUNT 254 TH/MM3 (150-450); RED CELL DISTRIBUTION WIDTH 15.6 % (11.6-17.2); WHITE BLOOD COUNT 8.9 TH/MM3 (4.0-11.0)
[2017-08-29] MEDS ORDERED: FUROSEMIDE 40 MG/4 ML VIAL IV PUSH ONE (20:30)
[2017-08-29 20:46] LABS: TROPONIN I LESS THAN 0.02 NG/ML (0.02-0.05)
[2017-08-29 21:22] LABS: BICARBONATE 25.6 MEQ/L (21.0-32.0); BLOOD UREA NITROGEN 17 MG/DL (7-18); CALCIUM 8.6 MG/DL (8.5-10.1); CHLORIDE 111 MEQ/L (98-107); CREATININE 1.05 MG/DL (0.50-1.00); GLOMERULAR FILTRATION RATE 51 ML/MIN (>89); GLUCOSE,RANDOM 138 MG/DL (74-106); MAGNESIUM 2.1 MG/DL (1.5-2.5); SODIUM (NA) 146 MEQ/L (136-145)
[2017-08-29 21:49] LABS: BACTERIA, URINE RARE /hpf; BILIRUBIN, URINE NEG (NEG); BLOOD, URINE NEG (NEG); GLUCOSE,URINE NEG (NEG); KETONE, URINE NEG (NEG); MUCUS URINE FEW /lpf (OCC); NITRITE,URINE NEG (NEG); SQUAMOUS EPITHELIAL CELL URINE <1 /hpf (0-5); URINE COLOR LIGHT-YELLOW (YELLW/STRAW); URINE LEUKOCYTE ESTERASE MOD (NEG)
[2017-08-29 21:57] VITALS: BP 144/96; PULSE 99; RESP 22; O2SAT 97
[2017-08-29] MEDS ORDERED: ACETAMINOPHEN 325 MG TAB PO PRN (22:00)
[2017-08-29] MEDS ORDERED: SENNOSIDES 8.6 MG TAB PO PRN (22:00)
[2017-08-29] MEDS ORDERED: BISACODYL 10 MG SUPP RECTAL PRN (22:00)
[2017-08-29] MEDS ORDERED: NALOXONE HCL 0.4 MG/ML AMP IV PUSH PRN (22:00)
[2017-08-29] MEDS ORDERED: MAGNESIUM HYDROXIDE SUSP 30 ML CUP PO PRN (22:00)
[2017-08-29] MEDS ORDERED: LACTULOSE SYRUP 20 GM/30 ML CUP PO PRN (22:00)
[2017-08-29] MEDS ORDERED: ONDANSETRON HCL 4 MG/2 ML VIAL IVP PRN (22:00)
[2017-08-29] MEDS ORDERED: PRED10 PO (22:03)
[2017-08-29] MEDS ORDERED: diphenhydrAMINE HCL 50 MG CAP PO ONE (22:15)
[2017-08-29 23:30] VITALS: BP 139/65; PULSE 92; RESP 20; TEMP 98.6; O2SAT 96
[2017-08-29] MEDS: ENOXAPARIN SODIUM 40 MG/0.4 ML SYRINGE SQ SCH (23:59)
[2017-08-30] VITALS (10 sets, daily range): BP systolic 122–164; BP diastolic 59–73; PULSE 79–103; RESP 18–22; TEMP 97.8–98.5; O2SAT 93–98
--- NOTE | 2017-08-30 02:11 | HHI.HP ---
[facility] Physician Pilo Alarcon MD Admission Diagnosis Pulmonary edema Diagnoses: Chief Complaint: Shortness of breath Travel History International Travel<30 Days: No Contact w/Intl Traveler <30 Da: No Traveled to Known Affected Are: No History of Present Illness Ms. Driscoll is a 76-year-old female with a history of asthma, hypertension, atrial fibrillation who presents to the emergency department on 08/29/2017 due to shortness of breath that has been going on for about a week. She follows up with french folder Dr. Oquendo who prescribed amoxicillin and prednisone recently. However her symptoms did not subside. Patient denies any changes in bowel or bladder habits. Upon arrival temperature 99F, pulse 112, respiration rate 34, blood pressure 225/107. WBC 8.9, sodium 146, potassium 4.2, BUN 17, creatinine 1.05. BNP 330. Chest x-ray reveals non-consolidative infiltrates in the perihilar region and upper lungs bilaterally. Review of Systems Except as stated in HPI: all other systems reviewed are Neg Past Family Social History Past Medical History Atrial fibrillation, asthma, hyperlipidemia, anxiety and depression. Past Surgical History Hysterectomy, parathyroid surgery, bladder lift Reported Medications Macrobid (Nitrofurantoin Monoh/Nitrofur Macro) 100 Mg Cap 100 Mg PO BID 7 Days Zofran Odt (Ondansetron Odt) 4 Mg Tab 4 Mg SL Q6HR PRN Lasix (Furosemide) 40 Mg Tab 40 Mg PO DAILY Atorvastatin (Atorvastatin Calcium) 20 Mg Tab 20 Mg PO HS Nitrostat SL (Nitroglycerin) 0.4 Mg Subl 0.4 Mg SL Q5M PRN 30 Days Mirtazapine 15 Mg Tab 7.5 Mg PO HS Adult Aspirin EC Low Strength (Aspirin) 81 Mg Tabec 162 Mg PO DAILY Duoneb (Ipratropium-Albuterol Neb) 0.5-2.5 Mg/3 Ml Neb 1 Ampule NEB QID NEB Proventil Hfa 6.7 GM Inh (Albuterol Sulfate) 90 Mcg/Act Aer 1 Puff INH Q4H PRN Reported Metolazone 2.5 Mg Tab 2.5 Mg PO LAST SUNDAY Effexor (Venlafaxine HCl) 75 Mg Tab 75 Mg PO DAILY Oxycodone (Oxycodone HCl) 10 Mg Tab 10 Mg PO Q6H PRN Daily Multiple Vitamin (Multiple Vitamin) 1 Tab Tab 1 Tab PO DAILY Prednisone 2.5 Mg Tab 2.5 Mg PO DAILY Potassium Chloride ER (Potassium Chloride) 10 Meq Cap 10 Meq PO DAILY Lasix (Furosemide) 20 Mg Tab 20 Mg PO DAILY Albuterol Neb (Albuterol Sulfate) 1.25 Mg/3 Ml Neb 1.25 Mg NEB QID NEB PRN Advair Diskus Inh (Fluticasone-Salmeterol Inh) 500-50 Mcg/Blist Aer 2 Puff INH BID Rinse mouth after use. Allergies: Coded Allergies: diatrizoate meglumine (Unverified Allergy, Unknown, Shortness of Breath, ) gadobenic acid (Unverified Allergy, Unknown, Shortness of Breath, 08/29/17) gadodiamide (Unverified Allergy, Unknown, Shortness of Breath, 08/29/17) gadoteridol (Unverified Allergy, Unknown, Shortness of Breath, 08/29/17) iodixanol (Unverified Allergy, Unknown, Shortness of Breath, 08/29/17) iohexol (Unverified Allergy, Unknown, Shortness of Breath, 08/29/17) Family History No family history of Alzheimer's or Parkinson's. Social History Alcohol Use: No Tobacco Use: No Substance Use: No Physical Exam Vital Signs Vital Signs Date Time Temp Pulse Resp B/P (MAP) Pulse Ox O2 Delivery O2 Flow Rate FiO2 08/30/17 01:09 15 08/29/17 23:30 98.6 92 20 139/65 (89) 96 08/29/17 21:57 99 22 144/96 (112) 97 Room Air 08/29/17 19:41 105 25 158/78 (104) 97 Room Air 08/29/17 19:36 105 24 185/88 (120) 97 Room Air 08/29/17 19:36 26 97 Room Air 08/29/17 19:06 99.0 112 34 225/107 (146) 97 Physical Exam GENERAL: This is a well-nourished, well-developed patient, in no apparent distress. SKIN: No rashes, ecchymoses or lesions. Warm and dry. HEAD: Atraumatic. Normocephalic. No temporal or scalp tenderness. EYES: Pupils equal round and reactive. No injection or drainage. ENT: Nose without bleeding, purulent drainage or septal hematoma. Airway patent. NECK: Trachea midline. No lymphadenopathy. Supple, nontender, no meningeal signs. CARDIOVASCULAR: Regular rate and rhythm without murmurs, gallops, or rubs. No JVD. RESPIRATORY: Poor air entry with mild wheezes. no rales, or rhonchi. GASTROINTESTINAL: Abdomen soft, non-tender, nondistended. No guarding. MUSCULOSKELETAL: Extremities without clubbing, cyanosis, or edema. NEUROLOGICAL: Awake and alert. Cranial nerves II through XII intact. No focal neurological deficits. Normal speech. Laboratory Laboratory Tests Test 08/29/17 19:55 08/29/17 20:50 White Blood Count 8.9 Red Blood Count 4.00 Hemoglobin 10.7 Hematocrit 33.8 Mean Corpuscular Volume 84.6 Mean Corpuscular Hemoglobin 26.8 Mean Corpuscular Hemoglobin Concent 31.7 Red Cell Distribution Width 15.6 Platelet Count 254 Mean Platelet Volume 9.4 Neutrophils (%) (Auto) 79.3 Lymphocytes (%) (Auto) 11.3 Monocytes (%) (Auto) 8.9 Eosinophils (%) (Auto) 0.2 Basophils (%) (Auto) 0.3 Neutrophils # (Auto) 7.1 Lymphocytes # (Auto) 1.0 Monocytes # (Auto) 0.8 Eosinophils # (Auto) 0.0 Basophils # (Auto) 0.0 CBC Comment DIFF FINAL Differential Comment Blood Urea Nitrogen 17 Creatinine 1.05 Random Glucose 138 Calcium Level 8.6 Magnesium Level 2.1 Sodium Level 146 Potassium Level 4.2 Chloride Level 111 Carbon Dioxide Level 25.6 Anion Gap 9 Estimat Glomerular Filtration Rate 51 Troponin I LESS THAN 0.02 B-Type Natriuretic Peptide 330 Urine Color LIGHT-YELLOW Urine Turbidity CLEAR Urine pH 7.0 Urine Specific [place] 1.009 Urine Protein TRACE Urine Glucose (UA) NEG Urine Ketones NEG Urine Occult Blood NEG Urine Nitrite NEG Urine Bilirubin NEG Urine Urobilinogen LESS THAN 2.0 Urine Leukocyte Esterase MOD Urine WBC LESS THAN 1 Urine Squamous Epithelial Cells <1 Urine Bacteria RARE Urine Mucus FEW Microscopic Urinalysis Comment CULT NOT INDICATED Result Diagram: 08/29/17195408/29/171954 Imaging Last Impressions Chest X-Ray 08/29/171919 Signed Impressions: CONCLUSION: Interval development of nonconsolidative infiltrates in the perihilar region an d upper lungs bilaterally. Caprini VTE Risk Assessment Caprini VTE Risk Assessment: Mod/High Risk (score >= 2) Caprini Risk Assessment Model Point Value = 1 Point Value = 2 Point Value = 3 Point Value = 5 Age 41-60 Minor surgery BMI > 25 kg/m2 Swollen legs Varicose veins or History of unexplained or recurrent spontaneous Oral contraceptives or hormone replacement Sepsis (< 1 month) Serious lung disease, including pneumonia (< 1 month) Abnormal pulmonary function Acute myocardial infarction Congestive heart failure (< 1 month) History of inflammatory bowel disease Medical patient at bed rest Age 61-74 Arthroscopic surgery Major open surgery (> 45 min) Laparoscopic surgery (> 45 min) Malignancy Confined to bed (> 72 hours) Immobilizing plaster cast Central venous access Age >= 75 History of VTE Family history of VTE Factor V Leiden Prothrombin [id number] Lupus anticoagulant Anticardiolipin antibodies Elevated serum homocysteine Heparin-induced thrombocytopenia Other congenital or acquired thrombophilia Stroke (< 1 month) Elective arthroplasty Hip, pelvis, or leg fracture Acute spinal cord injury (< 1 month) Prophylaxis Regimen Total Risk Factor Score Risk Level Prophylaxis Regimen 0-1 Low Early ambulation 2 Moderate Order ONE of the following: *Sequential Compression Device (SCD) *Heparin 5000 units SQ BID 3-4 Higher Order ONE of the following medications: *Heparin 5000 units SQ TID *Enoxaparin/Lovenox 40 mg SQ daily (WT < 150 kg, CrCl > 30 mL/min) *Enoxaparin/Lovenox 30 mg SQ daily (WT < 150 kg, CrCl > 10-29 mL/min) *Enoxaparin/Lovenox 30 mg SQ BID (WT < 150 kg, CrCl > 30 mL/min) AND/OR *Sequential Compression Device (SCD) 5 or more Highest Order ONE of the following medications: *Heparin 5000 units SQ TID (Preferred with Epidurals) *Enoxaparin/Lovenox 40 mg SQ daily (WT < 150 kg, CrCl > 30 mL/min) *Enoxaparin/Lovenox 30 mg SQ daily (WT < 150 kg, CrCl > 10-29 mL/min) *Enoxaparin/Lovenox 30 mg SQ BID (WT < 150 kg, CrCl > 30 mL/min) AND *Sequential Compression Device (SCD) Assessment and Plan Problem List: (1) Pulmonary edema ICD Code: J81.1 - Chronic pulmonary edema (2) Asthma ICD Code: J45.909 - Unspecified asthma, uncomplicated Assessment and Plan Ms. Driscoll is a 76-year-old female with a history of asthma, hypertension, atrial fibrillation who presents to the emergency department on 08/29/2017 due to shortness of breath that has been going on for about a week prior to this admission. CXR shows non-consolidative infiltrates. Probable Asthma excerbation Possible Pulmonary edema - Will give patient supplemental O2 as needed, DuoNeb PRN - Start Prednisone 20mg BID - Continue Lasix 40mg IV BID. Will also consult Dr. Oquendo with regards to her asthma, pulmonary edema. - Consider switching diuretics to PO Torsemide. Hyperlipidemia -continue atorvastatin 20 mg nightly. Anxiety, depression -continue Effexor 75 mg daily. Full code. Lovenox. Physician Certification 2 Midnight Certification Type: Admission for Inpatient Services Order for Inpatient Services The services are ordered in accordance with Medicare regulations or non- Medicare payer requirements, as applicable. In the case of services not specified as inpatient-only, they are appropriately provided as inpatient services in accordance with the 2-midnight benchmark. Estimated LOS (days): 2 days is the estimated time the patient will need to remain in the hospital, assuming treatment plan goals are met and no additional complications. Post-Hospital Plan: Not yet determined May Ross DO August 30, 2017 02:11
[2017-08-30] MEDS: RESP: ALBUTEROL 2.5 MG/IPRATROPIUM 0.5 MG NEB (PRN) NEB ×2 (04:59→10:41)
[2017-08-30] MEDS ORDERED: predniSONE 20 MG TAB PO SCH ×2 (09:00)
[2017-08-30] MEDS: FUROSEMIDE 40 MG/4 ML VIAL IV PUSH SCH ×2 (09:33→18:19)
[2017-08-30] MEDS: VENLAFAXINE HCL XR 75 MG CAP PO SCH (09:33)
[2017-08-30] MEDS: SODIUM CHLORIDE 0.9% FLUSH 10 ML FLUSH IV FLUSH SCH ×2 (09:34→20:09)
--- NOTE | 2017-08-30 12:12 | HHI.PR ---
Subjective Remarks Follow-up shortness of breath. She states she is feeling better with her dyspnea currently on room air. States she was having dyspnea on exertion with diaphoresis no chest pain Objective Vitals Vital Signs Date Time Temp Pulse Resp B/P (MAP) Pulse Ox O2 Delivery O2 Flow Rate FiO2 08/30/17 11:44 98.2 87 18 122/59 (80) 93 08/30/17 08:52 98.3 83 20 134/67 (89) 94 08/30/17 07:56 97 21 08/30/17 07:30 87 08/30/17 06:16 15 08/30/17 05:02 98 21 08/30/17 04:00 97.8 81 20 147/69 (95) 96 08/30/17 04:00 79 08/30/17 01:09 15 08/30/17 00:30 88 08/29/17 23:30 98.6 92 20 139/65 (89) 96 08/29/17 21:57 99 22 144/96 (112) 97 Room Air 08/29/17 19:41 105 25 158/78 (104) 97 Room Air 08/29/17 19:36 105 24 185/88 (120) 97 Room Air 08/29/17 19:36 26 97 Room Air 08/29/17 19:06 99.0 112 34 225/107 (146) 97 Result Diagram: 08/29/17195408/29/171954 Imaging Last Impressions Chest X-Ray 08/29/171919 Signed Impressions: CONCLUSION: Interval development of nonconsolidative infiltrates in the perihilar region an d upper lungs bilaterally. Objective Remarks GENERAL: This is a well-nourished, well-developed patient, in no apparent distress. SKIN: Bruising in the extremities. Warm and dry. CARDIOVASCULAR: Regular rate and rhythm without murmurs, gallops, or rubs. No JVD. RESPIRATORY: Poor air entry with no wheezes rales, or rhonchi. GASTROINTESTINAL: Abdomen soft, non-tender, nondistended. No guarding. MUSCULOSKELETAL: Extremities without clubbing, cyanosis but with bilateral lower extremity pitting edema. NEUROLOGICAL: Awake and alert. Cranial nerves II through XII intact. No focal neurological deficits. Normal speech. Procedures none A/P Problem List: (1) Pulmonary edema ICD Code: J81.1 - Chronic pulmonary edema (2) Asthma ICD Code: J45.909 - Unspecified asthma, uncomplicated Assessment and Plan Ms. Driscoll is a 76-year-old female with a history of asthma, hypertension, atrial fibrillation who presents to the emergency department on 08/29/2017 due to shortness of breath that has been going on for about a week prior to this admission. CXR shows non-consolidative infiltrates. Probable Asthma exacerbation. Improving Possible Pulmonary edema. Improving etiology to be determined - Will give patient supplemental O2 as needed, DuoNeb PRN - Continue prednisone 20mg BID - Continue Lasix 40mg IV BID. - Consider switching diuretics to PO Torsemide. - Will also consult Dr. Oquendo with regards to her asthma, pulmonary edema. Consider chest CT. - Obtain echo and consult patient's floor polisher. Lexiscan negative in February 2017 Hyperlipidemia -continue atorvastatin 20 mg nightly. Anxiety, depression -continue Effexor 75 mg daily. A. fib. Currently in sinus rhythm continue aspirin. Patient to follow-up with cardiology/PCP regarding anticoagulation full code. Lovenox. Taurus Aiken MD August 30, 2017 12:12
[2017-08-30] MEDS ORDERED: NITROGLYCERIN 0.4 MG SL 25 TABS/BTL SL PRN (12:15)
[2017-08-30] MEDS ORDERED: RESP: ALBUTEROL 1.25 MG/3 ML NEB (PRN) NEB (12:15)
--- NOTE | 2017-08-30 13:56 | MB ---
cc: Nicholas Oquendo MD DATE: 08/30/2017 HISTORY OF PRESENT ILLNESS: Ms. Driscoll is a 76-year-old white female known to me with steroid-dependent asthma, no prior smoking history, who presents with increasing shortness of breath, congestion, rapid heart rate, but sinus and possibly mild CHF. BNP is elevated to 300. Laurie is someone I have followed as an outpatient for asthma. She has required steroids recently, but says that she went on a boat to her yesterday on the [place] and became more and more short of breath and had her friend transport her to the emergency room when they returned. She has also been "filling up with fluid." Initial chest x-ray did appear to reveal perihilar consolidation. She had not had fever, purulent sputum or congestion suggesting infection. She is on a nebulizer at home with albuterol and Atrovent. She had been on 10 mg of prednisone recently and Advair 500/50. She has a history of atrial fibrillations, followed by Dr. Reed. I am not aware that she has ever had ischemic heart disease or heart failure. She denies chest pain. She has had no purulent sputum or hemoptysis. No increased swelling in her legs, although she does have mild chronic edema. She had an echocardiogram on the last hospitalization in 01/2017, which revealed a normal EF and no elevation in pulmonary artery pressure. ADDITIONAL PAST MEDICAL HISTORY: Hypertension, hypothyroidism, and parathyroidectomy. PAST SURGICAL HISTORY: Bladder lift procedure and a hysterectomy. ALLERGIES: SHE IS ALLERGIC TO IODINATED CONTRAST MATERIAL. SOCIAL HISTORY: Never smoked. No alcohol use. No unusual animal exposures. No recent travel. CURRENT MEDICATIONS: Reviewed in the EMR. REVIEW OF SYSTEMS: No nausea, vomiting, abdominal pain or recent change in bowel habits. Some mild chronic edema, not really worse. PHYSICAL EXAMINATION: VITAL SIGNS: Temperature 98 degrees, blood pressure 130/70, pulse 87 irregular, respirations 18, O2 saturation on room air 97% HEENT: Sclerae are anicteric. Mucous membranes are moist with no thrush. NECK: Veins are flat. Diffuse wheezing in both lungs without congestion. No audible basilar rales. HEART: Regular rate and rhythm without harsh murmur. No audible S3. ABDOMEN: Soft, nontender. EXTREMITIES: 1+ peripheral edema. No calf tenderness. No cyanosis or clubbing. LABORATORY DATA: White count is 8900, hemoglobin is 10.7. BUN and creatinine 17 and 1.05. BNP 330. IMAGING STUDIES: Chest x-ray perihilar infiltrates. DISCUSSION: Laurie presents with diffuse wheezing, significant recent steroid-dependent asthma, possibly mild congestive heart failure. She does not appear to have any infectious symptoms at this time and her white count is normal. She is afebrile. We will continue with some IV steroids for the next 24 hours. Continue her aerosol treatments. Dr. Reed is going to assess her cardiovascular status, particularly in light of the fact that there may be some fluid retention here. Further diagnostic and/or therapeutic intervention will depend on her ongoing clinical course and response to therapy. R. MD BENNETT Buck/AUSTEN , 01:28 PM , 01:55 PM
[2017-08-30] MEDS: methylPREDNISolone SOD SUCC 40 MG/1 ML VIAL IV PUSH SCH ×2 (15:37→20:09)
[2017-08-30] MEDS: RESP: ALBUTEROL 2.5 MG/IPRATROPIUM 0.5 MG NEB (SCH) NEB ×2 (16:07→19:38)
--- NOTE | 2017-08-30 16:52 | MB ---
cc: Reddy Turner MD DATE: 08/30/2017 HISTORY OF PRESENT ILLNESS: Laurie Driscoll is a 76-year-old woman with a history of asthma, who comes in due to severe shortness of breath going on for about a week, but got acutely worse on a river cruise. She says her angina has been flaring ever since last fall. She has been on prednisone with Dr. Oquendo and has been on antibiotics before. Denies any fluid retention problems. She has got infiltrates on her chest x-ray and a question of could these be cardiac related. She has had a prior echocardiogram and Doppler study here at [facility] that has shown normal LV function. She apparently has had atrial fibrillation that is paroxysmal, but no sign of that this admission. EKG showing sinus rhythm with PACs. Telemetry obviously has PACs. She has been intolerant of the diltiazem due to peripheral edema. PAST MEDICAL HISTORY: Includes allergic rhinitis, anxiety, arthritis, paroxysmal atrial fibrillation, chronic kidney disease, COPD, colon polyps, diverticulosis, hypercholesterolemia, hypertension, osteoporosis, peripheral neuropathy, spinal stenosis, vitamin D deficiency, vertigo. PAST SURGICAL HISTORY: Hysterectomy, parathyroid surgery. SOCIAL HISTORY: She has never smoked, does not drink. She is . MEDICATIONS: Her list of medications is charted. She has been on metolazone 2.5 mg daily and Lasix 20 mg daily. ALLERGIES: LIST OF ALLERGIES INCLUDE DIATRIZOATE, GADOBENIC ACID, GADODIAMIDE, GADOTERIDOL, IODIXANOL, IOHEXOL. REVIEW OF SYSTEMS: Otherwise negative. PHYSICAL EXAMINATION: GENERAL: Well-developed, well-nourished female, mildly tachypneic. She was hypertensive on admission, that is improved. HEENT: Unremarkable NECK: Shows no JVD. No bruits. CHEST: Shows severely diminished breath sounds. CARDIAC: Shows S1 and S2. Regular rate and rhythm. No murmurs or gallops appreciated. ABDOMEN: Soft. EXTREMITIES: Reveal no peripheral edema. LABORATORY DATA: Her laboratories are charted. Hematocrit is 33.8, creatinine is 1.05. Troponin is negative x 2. BNP is 330, but that is nonspecific in the setting of asthma. IMAGING STUDIES: Her chest x-ray report shows nonconsolidative infiltrates in the perihilar regions and upper lungs bilaterally. No specific mention of CHF. IMPRESSION AND RECOMMENDATIONS: Dyspnea with a history of asthma. She has been steroid dependent. I did not see anything obvious that suggests congestive heart failure. I will if her chest x-ray progresses. She has IV Lasix ordered. We will get followup electrolytes and BMP tomorrow. Further therapy to be determined. MD REKHA Gross/AUSTEN , 04:32 PM , 04:51 PM
[2017-08-30] MEDS: POTASSIUM CHLORIDE 20 MEQ CONTROLLED RELEASE TAB PO SCH (18:19)
[2017-08-30] MEDS: ENOXAPARIN SODIUM 40 MG/0.4 ML SYRINGE SQ SCH (20:09)
[2017-08-30] MEDS: MIRTAZAPINE 15 MG TAB PO SCH (20:10)
[2017-08-30] MEDS: ATORVASTATIN 20 MG TAB PO SCH (20:10)
[2017-08-30] MEDS: BUDESONIDE-FORMOTEROL 160/4.5 MCG INHALER INH SCH (20:16)
[2017-08-30] MEDS ORDERED: NON-FORMULARY DRUG (Fluticasone-Salmeterol Inh (Advair Diskus Inh) 2 PUFF) INH SCH (21:00)
[2017-08-31] VITALS (15 sets, daily range): BP systolic 124–187; BP diastolic 58–80; PULSE 56–123; RESP 16–26; TEMP 98.2–98.8; O2SAT 93–97
[2017-08-31] MEDS: methylPREDNISolone SOD SUCC 40 MG/1 ML VIAL IV PUSH SCH ×3 (04:58→21:13)
[2017-08-31] MEDS: SODIUM CHLORIDE 0.9% FLUSH 10 ML FLUSH IV FLUSH PRN ×2 (04:58→15:06)
[2017-08-31 06:44] LABS: AUTOMATED NEUTROPHIL # 12.5 TH/MM3 (1.8-7.7); BASOPHIL % 0.1 % (0.0-2.0); HEMATOCRIT 33.4 % (35.0-46.0); HEMOGLOBIN 10.5 GM/DL (11.6-15.3); LYMPHOCYTE # 1.1 TH/MM3 (1.0-4.8); MEAN CELL VOLUME 83.8 FL (80.0-100.0); MEAN CORPUSCULAR HEMOGLOBIN 26.5 PG (27.0-34.0); MEAN CORPUSCULAR HGB CONC 31.5 % (32.0-36.0); MEAN PLATELET VOLUME 9.4 FL (7.0-11.0); MONO % 4.7 % (0.0-8.0); MONOCYTE # 0.7 TH/MM3 (0-0.9); NEUT % 87.2 % (16.0-70.0); PLATELET COUNT 265 TH/MM3 (150-450); RED BLOOD COUNT 3.98 MIL/MM3 (4.00-5.30); RED CELL DISTRIBUTION WIDTH 15.8 % (11.6-17.2); WHITE BLOOD COUNT 14.3 TH/MM3 (4.0-11.0)
[2017-08-31 07:16] LABS: BICARBONATE 26.5 MEQ/L (21.0-32.0); CREATININE 1.03 MG/DL (0.50-1.00)
[2017-08-31] MEDS: RESP: ALBUTEROL 2.5 MG/IPRATROPIUM 0.5 MG NEB (SCH) NEB ×4 (08:01→19:47)
--- NOTE | 2017-08-31 08:16 | EKG ---
Date Performed: 08/29/2017 Time Performed: 20:38:56 PTAGE: 76 years EKG: SINUS TACHYCARDIA WITH FREQUENT SUPRAVENTRICULAR PREMATURE COMPLEXES ABNORMAL RHYTHM ECG PREVIOUS TRACING : 08/15/2017 11.28 DOCTOR: Dennis Baldwin Interpretating Date/Time 08/31/2017 08:13:10
[2017-08-31] MEDS: VENLAFAXINE HCL XR 75 MG CAP PO SCH (08:55)
[2017-08-31] MEDS: ASPIRIN EC 81 MG TABEC PO SCH (08:56)
[2017-08-31] MEDS: POTASSIUM CHLORIDE 20 MEQ CONTROLLED RELEASE TAB PO SCH ×2 (08:56→13:34)
[2017-08-31] MEDS: FUROSEMIDE 40 MG/4 ML VIAL IV PUSH SCH (08:57)
[2017-08-31] MEDS: SODIUM CHLORIDE 0.9% FLUSH 10 ML FLUSH IV FLUSH SCH ×2 (08:58→21:04)
[2017-08-31] MEDS: BUDESONIDE-FORMOTEROL 160/4.5 MCG INHALER INH SCH ×2 (09:00→20:00)
--- NOTE | 2017-08-31 10:12 | HHI.PR ---
Subjective Remarks Follow-up asthma. Improving shortness of breath but still with BECK. Complains of mild frontal headache and chronic pain involving the bilateral lower extremities. BP elevated states it is controlled at home. Objective Vitals Vital Signs Date Time Temp Pulse Resp B/P (MAP) Pulse Ox O2 Delivery O2 Flow Rate FiO2 08/31/17 08:26 98.6 87 18 186/79 (114) 94 08/31/17 08:03 96 21 08/31/17 03:43 15 08/31/17 03:41 98.3 90 18 177/77 (110) 95 08/31/17 00:10 98.2 93 16 146/80 (102) 96 08/30/17 20:56 98.5 103 18 145/72 (96) 95 08/30/17 19:39 97 08/30/17 15:22 98.4 102 22 164/73 (103) 95 08/30/17 11:44 98.2 87 18 122/59 (80) 93 I/O 08/30/17 08/30/17 08/30/17 08/31/17 08/31/17 08/31/17 07:00 15:00 23:00 07:00 15:00 23:00 Intake Total 720 ml Balance 720 ml Intake Oral 720 ml # Voids 5 4 # Bowel Movements 3 Result Diagram: 08/31/17 0505 08/31/17 0505 Imaging Last Impressions Chest X-Ray 08/29/17 192 Signed Impressions: CONCLUSION: Interval development of nonconsolidative infiltrates in the perihilar region an d upper lungs bilaterally. Objective Remarks GENERAL: This is a well-nourished, well-developed patient, in no apparent distress. SKIN: Bruising in the extremities. Warm and dry. CARDIOVASCULAR: Regular rate and rhythm without murmurs, gallops, or rubs. No JVD. RESPIRATORY: Mild expiratory wheezes GASTROINTESTINAL: Abdomen soft, non-tender, nondistended. No guarding. MUSCULOSKELETAL: Extremities without clubbing, cyanosis but with bilateral lower extremity pitting edema. NEUROLOGICAL: Awake and alert. Cranial nerves II through XII intact. No focal neurological deficits. Normal speech. Procedures none A/P Problem List: (1) Pulmonary edema ICD Code: J81.1 - Chronic pulmonary edema (2) Asthma ICD Code: J45.909 - Unspecified asthma, uncomplicated Assessment and Plan Ms. Driscoll is a 76-year-old female with a history of asthma, hypertension, atrial fibrillation who presents to the emergency department on 08/29/2017 due to shortness of breath that has been going on for about a week prior to this admission. CXR shows non-consolidative infiltrates. Asthma exacerbation. Mild active wheezing today Nonconsolidative bilateral infiltrates with elevated BNP - Will give patient supplemental O2 as needed, DuoNeb PRN - Continue IV Solu-Medrol - Continue Lasix 40mg IV BID. - Consider switching diuretics to PO Torsemide. - Will also consult Dr. Oquendo with regards to her asthma. Consider chest CT. - Obtain echo and consult patient's manager strategy. Lexiscan negative in February 2017 Hypertension, uncontrolled. Start hydralazine and continue to monitor hyperlipidemia -continue atorvastatin 20 mg nightly. Anxiety, depression -continue Effexor 75 mg daily. A. fib. Currently in sinus rhythm continue aspirin. Patient to follow-up with cardiology/PCP regarding anticoagulation Acute kidney injury. Creatinine slightly better. Elevated BUNs likely secondary to steroids. Nonoliguric. Avoid nephrotoxins will monitor full code. Lovenox. Taurus Aiken MD August 31, 2017 10:12
[2017-08-31] MEDS ORDERED: amLODIPine BESYLATE 5 MG TAB PO SCH (10:15)
[2017-08-31] MEDS ORDERED: ENALAPRILAT 1.25 MG/ML VIAL IV PUSH PRN (10:15)
[2017-08-31] MEDS ORDERED: cloNIDine HCL 0.1 MG TAB PO PRN (10:15)
[2017-08-31] MEDS ORDERED: RESP: ALBUTEROL 1.25 MG/3 ML NEB (PRN) NEB ×2 (10:15→17:00)
[2017-08-31] MEDS: hydrALAZINE HCL 25 MG TAB PO SCH ×2 (10:47→21:13)
[2017-08-31] MEDS ORDERED: RESP: ALBUTEROL 0.63 MG/3 ML NEB (PRN) NEB (17:30)
--- NOTE | 2017-08-31 17:55 | PD.CARD.PN ---
Subjective Subjective Remarks SOB is a little better Objective Medications Current Medications Medications (Trade) Dose Ordered Sig/Rocky Route Start Time Stop Time Status Last Admin (NS Flush) 2 ml UNSCH PRN IV FLUSH 08/29/17 22:00 08/31/17 15:06 (NS Flush) 2 ml BID IV FLUSH 08/30/17 09:00 08/31/17 08:58 (Tylenol) 650 mg Q4H PRN PO 08/29/17 22:00 08/30/17 00:09 (Zofran Inj) 4 mg Q6H PRN IVP 08/29/17 22:00 (Lovenox Inj) 40 mg Q24H SQ 08/29/17 22:00 08/30/17 20:09 (Narcan Inj) 0.4 mg UNSCH PRN IV PUSH 08/29/17 22:00 (Milk Of Magnesia Liq) 30 ml Q12H PRN PO 08/29/17 22:00 (Senokot) 17.2 mg Q12H PRN PO 08/29/17 22:00 (Dulcolax Supp) 10 mg DAILY PRN RECTAL 08/29/17 22:00 (Lactulose Liq) 30 ml DAILY PRN PO 08/29/17 22:00 (Lipitor) 20 mg HS PO 08/30/17 21:00 08/30/17 20:10 (Effexor Xr) 75 mg DAILY PO 08/30/17 09:00 08/31/17 08:55 (Roxicodone) 10 mg Q6H PRN PO 08/30/17 05:15 08/31/17 08:57 (Ecotrin Ec) 162 mg DAILY PO 08/31/17 09:00 08/31/17 08:56 (Remeron) 7.5 mg HS PO 08/30/17 21:00 08/30/17 20:10 (Nitrostat Sl) 0.4 mg Q5M PRN SL 08/30/17 12:15 08/31/17 09:00 (SoluMEDROL INJ) 40 mg Q8HR IV PUSH 08/30/17 14:00 08/31/17 15:06 (Vasotec Inj) 1.25 mg Q6H PRN IV PUSH 08/31/17 10:15 (Catapres) 0.1 mg Q6H PRN PO 08/31/17 10:15 08/31/17 15:28 (Apresoline) 25 mg Q12HR PO 08/31/17 10:15 08/31/17 10:47 (Duoneb Neb) 1 ampule TID NEB NEB 08/31/17 20:00 (Symbicort 160-4.5 Mcg Inh) 1 puff BID NEB INH 08/31/17 20:00 (Albuterol Neb) 0.63 mg Q1HR NEB PRN NEB 08/31/17 17:30 (KCl) 20 meq DAILY PO 09/01/17 09:00 UNV (Lasix) 40 mg DAILY PO 09/01/17 09:00 UNV (Cozaar) 50 mg DAILY PO 08/31/17 17:45 UNV Vital Signs / I&O Vital Signs Date Time Temp Pulse Resp B/P (MAP) Pulse Ox O2 Delivery O2 Flow Rate FiO2 08/31/17 17:21 98.7 102 26 130/67 (88) 96 08/31/17 15:44 97 08/31/17 15:21 98.5 56 20 187/74 (111) 97 08/31/17 15:14 123 08/31/17 12:24 98.2 115 18 139/63 (88) 93 08/31/17 12:05 107 08/31/17 08:56 90 08/31/17 08:26 98.6 87 18 186/79 (114) 94 08/31/17 08:03 96 21 08/31/17 03:43 15 08/31/17 03:41 98.3 90 18 177/77 (110) 95 08/31/17 00:10 98.2 93 16 146/80 (102) 96 08/30/17 20:56 98.5 103 18 145/72 (96) 95 08/30/17 19:39 97 I/O 08/30/17 08/30/17 08/30/17 08/31/17 08/31/17 08/31/17 07:00 15:00 23:00 07:00 15:00 23:00 Intake Total 720 ml Balance 720 ml Intake Oral 720 ml # Voids 5 4 1 # Bowel Movements 3 1 Physical Exam Alert Chest: kyphotic, Increased AP diameter, severe dcreased breath sounds CV: SR to Sinus tach with PAC's Echo pending. No edema. BUN up - IV lasix stopped Laboratory Laboratory Tests Test 08/31/17 05:05 White Blood Count 14.3 TH/MM3 Red Blood Count 3.98 MIL/MM3 Hemoglobin 10.5 GM/DL Hematocrit 33.4 % Mean Corpuscular Volume 83.8 FL Mean Corpuscular Hemoglobin 26.5 PG Mean Corpuscular Hemoglobin Concent 31.5 % Red Cell Distribution Width 15.8 % Platelet Count 265 TH/MM3 Mean Platelet Volume 9.4 FL Neutrophils (%) (Auto) 87.2 % Lymphocytes (%) (Auto) 8.0 % Monocytes (%) (Auto) 4.7 % Eosinophils (%) (Auto) 0.0 % Basophils (%) (Auto) 0.1 % Neutrophils # (Auto) 12.5 TH/MM3 Lymphocytes # (Auto) 1.1 TH/MM3 Monocytes # (Auto) 0.7 TH/MM3 Eosinophils # (Auto) 0.0 TH/MM3 Basophils # (Auto) 0.0 TH/MM3 CBC Comment DIFF FINAL Differential Comment Blood Urea Nitrogen 29 MG/DL Creatinine 1.03 MG/DL Random Glucose 132 MG/DL Calcium Level 8.0 MG/DL Magnesium Level 2.0 MG/DL Sodium Level 143 MEQ/L Potassium Level 3.8 MEQ/L Chloride Level 104 MEQ/L Carbon Dioxide Level 26.5 MEQ/L Anion Gap 13 MEQ/L Estimat Glomerular Filtration Rate 52 ML/MIN Imaging Last 48 hours Impressions Chest X-Ray 08/29/17 1920 Signed Impressions: CONCLUSION: Interval development of nonconsolidative infiltrates in the perihilar region an d upper lungs bilaterally. Assessment and Plan Problem List: (1) Sinus tachycardia ICD Codes: R00.0 - Tachycardia, unspecified Plan: Can't safely use beta martin. Diltiazem caused severe edema. No afib seen/ (2) Pulmonary infiltrates on CXR ICD Codes: R91.8 - Other nonspecific abnormal finding of lung field Plan: recheck CXR in AM. Change diuretic to PO (3) Asthma ICD Codes: J45.909 - Unspecified asthma, uncomplicated (4) HTN (hypertension) ICD Codes: I10 - Essential (primary) hypertension Plan: add losartan Assessment and Plan Await echo. Unclear how much of clinical presentation is related to heart. Reddy Turner MD August 31, 2017 17:55
[2017-08-31] MEDS: LOSARTAN 50 MG TAB PO SCH (18:12)
[2017-08-31] MEDS: ATORVASTATIN 20 MG TAB PO SCH (21:13)
[2017-08-31] MEDS: ENOXAPARIN SODIUM 40 MG/0.4 ML SYRINGE SQ SCH (21:13)
[2017-08-31] MEDS: MIRTAZAPINE 15 MG TAB PO SCH (21:13)
[2017-09-01] VITALS (10 sets, daily range): BP systolic 131–151; BP diastolic 60–72; PULSE 76–98; RESP 16–18; TEMP 98–98.8; O2SAT 94–98
[2017-09-01] MEDS: methylPREDNISolone SOD SUCC 40 MG/1 ML VIAL IV PUSH SCH (05:15)
[2017-09-01] MEDS: SODIUM CHLORIDE 0.9% FLUSH 10 ML FLUSH IV FLUSH PRN (05:15)
[2017-09-01] MEDS: RESP: ALBUTEROL 2.5 MG/IPRATROPIUM 0.5 MG NEB (SCH) NEB ×2 (08:05→13:40)
[2017-09-01 08:16] LABS: BICARBONATE 24.9 MEQ/L (21.0-32.0); CALCIUM 8.3 MG/DL (8.5-10.1); CREATININE 0.87 MG/DL (0.50-1.00); MAGNESIUM 2.2 MG/DL (1.5-2.5)
[2017-09-01] MEDS ORDERED: POTASSIUM CHLORIDE 20 MEQ CONTROLLED RELEASE TAB PO SCH (09:00)
[2017-09-01] MEDS ORDERED: FUROSEMIDE 40 MG TAB PO SCH (09:00)
--- NOTE | 2017-09-01 09:20 | RADRPT ---
EXAM DATE: 09/01/2017 9:09 AM EDT AGE/SEX: 76 years / Female INDICATIONS: Asthma. CLINICAL DATA: This is the patient's subsequent encounter. Patient reports that signs and symptoms h ave been present for 1 day and indicates a pain score of 0/10. MEDICAL/SURGICAL HISTORY: None. None. COMPARISON: [facility], CHEST PA & LAT, 04/17/2016. . FINDINGS: PA and lateral views of the chest demonstrate the lungs to be symmetrically aerated without evidence of mass, infiltrate or effusion. There is hyperaeration bilaterally. There is stable scarring in both lung bases. There is stable chronic interstitial changes bilaterally. The heart size is upper limits of normal but stable.. Osseous structures are intact and stable. Surgical clips are seen at the base of the neck. No significant changes compared to the prior exam CONCLUSION: 1. No new or acute pulmonary infiltrates 2. Stable chronic interstitial changes and scarring in both lung bases. Electronically signed by: Tramaine Enrique MD 09/01/2017 9:19 AM EDT
[2017-09-01] MEDS: BUDESONIDE-FORMOTEROL 160/4.5 MCG INHALER INH SCH (09:41)
[2017-09-01] MEDS: hydrALAZINE HCL 25 MG TAB PO SCH (09:42)
[2017-09-01] MEDS: VENLAFAXINE HCL XR 75 MG CAP PO SCH (09:42)
[2017-09-01] MEDS: LOSARTAN 50 MG TAB PO SCH (09:42)
[2017-09-01] MEDS: ASPIRIN EC 81 MG TABEC PO SCH (09:42)
[2017-09-01] MEDS: SODIUM CHLORIDE 0.9% FLUSH 10 ML FLUSH IV FLUSH SCH (09:42)
--- NOTE | 2017-09-01 10:23 | HHI.PR ---
Subjective Remarks Follow-up asthma. States her breathing is much improved ambulating in the room. Developed sinus tachycardia yesterday Objective Vitals Vital Signs Date Time Temp Pulse Resp B/P (MAP) Pulse Ox O2 Delivery O2 Flow Rate FiO2 09/01/17 08:31 98.2 83 18 137/69 (91) 98 09/01/17 08:05 97 21 09/01/17 04:00 76 09/01/17 03:08 98.4 83 16 135/60 (85) 95 09/01/17 00:00 88 08/31/17 23:41 98.2 91 18 145/71 (95) 96 08/31/17 20:52 98.8 67 16 124/58 (80) 96 08/31/17 20:00 122 08/31/17 17:21 98.7 102 26 130/67 (88) 96 08/31/17 16:42 113 08/31/17 15:44 97 08/31/17 15:21 98.5 56 20 187/74 (111) 97 08/31/17 15:14 123 08/31/17 12:24 98.2 115 18 139/63 (88) 93 08/31/17 12:05 107 I/O 08/31/17 08/31/17 08/31/17 09/01/17 09/01/17 09/01/17 07:00 15:00 23:00 07:00 15:00 23:00 # Voids 1 # Bowel Movements 1 Result Diagram: 08/31/17 0505 09/01/17 0613 Imaging Last Impressions Chest X-Ray 09/01/17 0600 Signed Impressions: CONCLUSION: 1. No new or acute pulmonary infiltrates 2. Stable chronic interstitial changes and scarring in both lung bases. Objective Remarks GENERAL: This is a well-nourished, well-developed patient, in no apparent distress. SKIN: Bruising in the extremities. Warm and dry. CARDIOVASCULAR: Regular rate and rhythm without murmurs, gallops, or rubs. No JVD. RESPIRATORY: Improving expiratory wheezes GASTROINTESTINAL: Abdomen soft, non-tender, nondistended. No guarding. MUSCULOSKELETAL: Extremities without clubbing, cyanosis but with bilateral lower extremity pitting edema. NEUROLOGICAL: Awake and alert. Cranial nerves II through XII intact. No focal neurological deficits. Normal speech. Procedures none A/P Problem List: (1) Pulmonary edema ICD Code: J81.1 - Chronic pulmonary edema (2) Asthma ICD Code: J45.909 - Unspecified asthma, uncomplicated Assessment and Plan Ms. Driscoll is a 76-year-old female with a history of asthma, hypertension, atrial fibrillation who presents to the emergency department on 08/29/2017 due to shortness of breath that has been going on for about a week prior to this admission. CXR shows non-consolidative infiltrates. Asthma exacerbation. Improving Nonconsolidative bilateral infiltrates with elevated BNP - Will give patient supplemental O2 as needed, DuoNeb PRN - Continue IV Solu-Medrol - Continue Lasix switched to p.o. - Will also consult Dr. Oquendo with regards to her asthma. Consider chest CT. - Obtain echo still not done and consult patient's drill presser. Lexiscan negative in February 2017 Hypertension, uncontrolled. Improved continue Cozaar and hydralazine and monitor hyperlipidemia -continue atorvastatin 20 mg nightly. Anxiety, depression -continue Effexor 75 mg daily. A. fib. Currently in sinus rhythm continue aspirin. Patient to follow-up with cardiology/PCP regarding anticoagulation. Patient developed sinus tachycardia yesterday improved today. Cannot start beta-martin secondary to asthma. Intolerant to calcium channel martin Acute kidney injury. Elevated BUNs likely secondary to steroids. Nonoliguric. Avoid nephrotoxins will monitor. Improved today full code. Lovenox. Taurus Aiken MD September 01, 2017 10:23
[2017-09-01] MEDS ORDERED: HYDR-3799 PO (10:27)
[2017-09-01] MEDS ORDERED: FURO40TA PO (10:27)
[2017-09-01] MEDS ORDERED: COZA50TA PO (10:27)
--- NOTE | 2017-09-01 10:27 | HHI.FF ---
Face to Face Verification Diagnosis: (1) Pulmonary infiltrates on CXR Physical Therapy Order: Evaluate and Treat, Improve ambulation, Strength and gait training I have seen patient Laurie Driscoll on 09/01/17. My clinical findings support the need for the requested home health care services because: Patient has SOB I certify that my clinical findings support that this patient is homebound because: Unsafe to leave home unassisted Taurus Aiken MD September 01, 2017 10:27
--- NOTE | 2017-09-01 10:27 | HHI.DCPOC ---
Discharge Care Plan Diagnosis: (1) Pulmonary infiltrates on CXR Your Health Problems Are: Difficulty with ADL Exercise Tolerance Goals to Promote Your Health * To prevent worsening of your condition and complications * To maintain your health at the optimal level Directions to Meet Your Goals Take your medications as prescribed Follow your dietary instruction Follow activity as directed Keep your appointments as scheduled Take your immunizations and boosters as scheduled If your symptoms worsen call your PCP, if no PCP go to Urgent Care Center or Emergency Room Smoking is Dangerous to Your Health. Avoid second hand smoke Call the 24-hour hour crisis hotline for domestic abuse at Taurus Aiken MD September 01, 2017 10:27
--- NOTE | 2017-09-01 10:28 | PD.CARD.PN ---
Subjective Subjective Remarks Dyspnea "much better". No CP, palpitations, dizziness. Slept well. Objective Medications Item Value Date Time Potassium Chloride 20 meq 09/01/17 0900 (KCl) DAILY/PO 09/01/17 0942 Furosemide 40 mg 09/01/17 0900 (Lasix) DAILY/PO 09/01/17 0942 Losartan Potassium 50 mg 08/31/17 1800 (Cozaar) DAILY/PO 09/01/17 0942 Hydralazine HCl 25 mg 08/31/17 1015 (Apresoline) Q12HR/PO 09/01/17 0942 Aspirin 162 mg 08/31/17 0900 (Ecotrin Ec) DAILY/PO 09/01/1742 Atorvastatin 20 mg 08/30/17 2100 Calcium HS/PO 08/31/172112 (Lipitor) Enoxaparin Sodium 40 mg 08/29/17 2200 (Lovenox Inj) Q24H/SQ 08/31/172112 Current Medications Medications (Trade) Dose Ordered Sig/Rocky Route Start Time Stop Time Status Last Admin (NS Flush) 2 ml UNSCH PRN IV FLUSH 08/29/17 22:00 09/01/17 05:15 (NS Flush) 2 ml BID IV FLUSH 08/30/17 09:00 09/01/17 09:42 (Tylenol) 650 mg Q4H PRN PO 08/29/17 22:00 08/30/17 00:09 (Zofran Inj) 4 mg Q6H PRN IVP 08/29/17 22:00 (Lovenox Inj) 40 mg Q24H SQ 08/29/17 22:00 08/31/17 21:13 (Narcan Inj) 0.4 mg UNSCH PRN IV PUSH 08/29/17 22:00 (Milk Of Magnesia Liq) 30 ml Q12H PRN PO 08/29/17 22:00 (Senokot) 17.2 mg Q12H PRN PO 08/29/17 22:00 (Dulcolax Supp) 10 mg DAILY PRN RECTAL 08/29/17 22:00 (Lactulose Liq) 30 ml DAILY PRN PO 08/29/17 22:00 (Lipitor) 20 mg HS PO 08/30/17 21:00 08/31/17 21:13 (Effexor Xr) 75 mg DAILY PO 08/30/17 09:00 09/01/17 09:42 (Roxicodone) 10 mg Q6H PRN PO 08/30/17 05:15 09/01/17 02:39 (Ecotrin Ec) 162 mg DAILY PO 08/31/17 09:00 09/01/17 09:42 (Remeron) 7.5 mg HS PO 08/30/17 21:00 08/31/17 21:13 (Nitrostat Sl) 0.4 mg Q5M PRN SL 08/30/17 12:15 08/31/17 09:00 (SoluMEDROL INJ) 40 mg Q8HR IV PUSH 08/30/17 14:00 09/01/17 05:15 (Vasotec Inj) 1.25 mg Q6H PRN IV PUSH 08/31/17 10:15 (Catapres) 0.1 mg Q6H PRN PO 08/31/17 10:15 08/31/17 15:28 (Apresoline) 25 mg Q12HR PO 08/31/17 10:15 09/01/17 09:42 (Duoneb Neb) 1 ampule TID NEB NEB 08/31/17 20:00 09/01/17 08:05 (Symbicort 160-4.5 Mcg Inh) 1 puff BID NEB INH 08/31/17 20:00 09/01/17 09:41 (Albuterol Neb) 0.63 mg Q1HR NEB PRN NEB 08/31/17 17:30 (KCl) 20 meq DAILY PO 09/01/17 09:00 09/01/17 09:42 (Lasix) 40 mg DAILY PO 09/01/17 09:00 09/01/17 09:42 (Cozaar) 50 mg DAILY PO 08/31/17 18:00 09/01/17 09:42 Vital Signs / I&O Vital Signs Date Time Temp Pulse Resp B/P (MAP) Pulse Ox O2 Delivery O2 Flow Rate FiO2 09/01/17 08:31 98.2 83 18 137/69 (91) 98 09/01/17 08:05 97 21 09/01/17 04:00 76 09/01/17 03:08 98.4 83 16 135/60 (85) 95 09/01/17 00:00 88 08/31/17 23:41 98.2 91 18 145/71 (95) 96 08/31/17 20:52 98.8 67 16 124/58 (80) 96 08/31/17 20:00 122 08/31/17 17:21 98.7 102 26 130/67 (88) 96 08/31/17 16:42 113 08/31/17 15:44 97 08/31/17 15:21 98.5 56 20 187/74 (111) 97 08/31/17 15:14 123 08/31/17 12:24 98.2 115 18 139/63 (88) 93 08/31/17 12:05 107 I/O 08/31/17 08/31/17 08/31/17 09/01/17 09/01/17 09/01/17 07:00 15:00 23:00 07:00 15:00 23:00 # Voids 1 # Bowel Movements 1 Physical Exam GENERAL: Well developed, well nourished. No acute distress. HEENT: Jugular venous pressure is normal. CHEST: Diminished breath sounds diffusely. Scattered mild expiratory wheezes. CARDIAC: Regular rate and rhythm without S3, S4, or murmur. ABDOMEN: Soft, nontender, no hepatosplenomegaly. Bowel sounds present. EXTREMITIES: No clubbing, cyanosis, or edema. Laboratory Laboratory Tests Test 09/01/17 06:13 Blood Urea Nitrogen 29 MG/DL Creatinine 0.87 MG/DL Random Glucose 130 MG/DL Calcium Level 8.3 MG/DL Magnesium Level 2.2 MG/DL Sodium Level 140 MEQ/L Potassium Level 4.2 MEQ/L Chloride Level 106 MEQ/L Carbon Dioxide Level 24.9 MEQ/L Anion Gap 9 MEQ/L Estimat Glomerular Filtration Rate 63 ML/MIN Imaging Last 24 hours Impressions Chest X-Ray 09/01/17 0600 Signed Impressions: CONCLUSION: 1. No new or acute pulmonary infiltrates 2. Stable chronic interstitial changes and scarring in both lung bases. Assessment and Plan Problem List: (1) Pulmonary infiltrates on CXR ICD Codes: R91.8 - Other nonspecific abnormal finding of lung field Plan: Doing much better today. CXR without any acute changes. Overall no definite evidence for CHF. Patient had unremarkable echo 02/01/17. OK for discharge from cardiac standpoint. (2) Paroxysmal atrial fibrillation ICD Codes: I48.0 - Paroxysmal atrial fibrillation Status: Chronic Plan: Remains in NSR. Possible intermittent salvoes of atrial tachycardia. No definite atrial fibrillation. Thromboembolic risk appears overall low. Recommend continue daily aspirin. Code Status full code Discussed Condition With patient Radhames Kirk MD September 01, 2017 10:28
[2017-09-01] MEDS ORDERED: predniSONE 20 MG TAB PO SCH (10:30)
--- NOTE | 2017-09-01 13:43 | EKG ---
Date Performed: 08/31/2017 Time Performed: 17:00:34 PTAGE: 76 years EKG: SINUS TACHYCARDIA WITH FREQUENT SUPRAVENTRICULAR PREMATURE COMPLEXES IN A BIGEMINAL PATTERN ABNORMAL RHYTHM ECG Since PREVIOUS TRACING , no significant change noted PREVIOUS TRACIN08/29/2017 20.38 DOCTOR: Angelo Gleason Interpretating Date/Time 09/01/2017 13:43:36
--- NOTE | 2017-09-01 15:03 | HHI.DS ---
Discharge Summary Admission Date August 29, 2017 at 21:55 Discharge Date: September 01, 2017 Admitting Diagnosis Pulmonary edema (1) Asthma ICD Code: J45.909 - Unspecified asthma, uncomplicated Diagnosis: Principal Procedures none Brief History - From Admission Ms. Driscoll is a 76-year-old female with a history of asthma, hypertension, atrial fibrillation who presents to the emergency department on 08/29/2017 due to shortness of breath that has been going on for about a week. She follows up with retail delivery driver Dr. Oquendo who prescribed amoxicillin and prednisone recently. However her symptoms did not subside. Patient denies any changes in bowel or bladder habits. Upon arrival temperature 99F, pulse 112, respiration rate 34, blood pressure 225/107. WBC 8.9, sodium 146, potassium 4.2, BUN 17, creatinine 1.05. BNP 330. Chest x-ray reveals non-consolidative infiltrates in the perihilar region and upper lungs bilaterally. CBC/BMP: 08/31/17 0505 09/01/17 0613 Significant Findings Laboratory Tests Test 08/29/17 19:55 08/29/17 20:50 08/31/17 05:05 09/01/17 06:13 Hemoglobin 10.7 GM/DL (11.6-15.3) 10.5 GM/DL (11.6-15.3) Hematocrit 33.8 % (35.0-46.0) 33.4 % (35.0-46.0) Mean Corpuscular Hemoglobin 26.8 PG (27.0-34.0) 26.5 PG (27.0-34.0) Mean Corpuscular Hemoglobin Concent 31.7 % (32.0-36.0) 31.5 % (32.0-36.0) Neutrophils (%) (Auto) 79.3 % (16.0-70.0) 87.2 % (16.0-70.0) Monocytes (%) (Auto) 8.9 % (0.0-8.0) Creatinine 1.05 MG/DL (0.50-1.00) 1.03 MG/DL (0.50-1.00) Random Glucose 138 MG/DL (74-106) 132 MG/DL (74-106) 130 MG/DL (74-106) Sodium Level 146 MEQ/L (136-145) Chloride Level 111 MEQ/L (98-107) Estimat Glomerular Filtration Rate 51 ML/MIN (>89) 52 ML/MIN (>89) 63 ML/MIN (>89) Troponin I LESS THAN 0.02 NG/ML B-Type Natriuretic Peptide 330 PG/ML (0-100) Urine Leukocyte Esterase MOD (NEG) Urine Bacteria RARE /hpf (NONE) Urine Mucus FEW /lpf (OCC) White Blood Count 14.3 TH/MM3 (4.0-11.0) Red Blood Count 3.98 MIL/MM3 (4.00-5.30) Lymphocytes (%) (Auto) 8.0 % (9.0-44.0) Neutrophils # (Auto) 12.5 TH/MM3 (1.8-7.7) Blood Urea Nitrogen 29 MG/DL (7-18) 29 MG/DL (7-18) Calcium Level 8.0 MG/DL (8.5-10.1) 8.3 MG/DL (8.5-10.1) Imaging Last Impressions Chest X-Ray 09/01/17 0600 Signed Impressions: CONCLUSION: 1. No new or acute pulmonary infiltrates 2. Stable chronic interstitial changes and scarring in both lung bases. PE at Discharge GENERAL: This is a well-nourished, well-developed patient, in no apparent distress. SKIN: Bruising in the extremities. Warm and dry. CARDIOVASCULAR: Regular rate and rhythm without murmurs, gallops, or rubs. No JVD. RESPIRATORY: Improved wheezes GASTROINTESTINAL: Abdomen soft, non-tender, nondistended. No guarding. MUSCULOSKELETAL: Extremities without clubbing, cyanosis but with bilateral lower extremity pitting edema. NEUROLOGICAL: Awake and alert. Cranial nerves II through XII intact. No focal neurological deficits. Normal speech. Hospital Course Ms. Driscoll is a 76-year-old female with a history of asthma, hypertension, atrial fibrillation who presents to the emergency department on 08/29/2017 due to shortness of breath that has been going on for about a week prior to this admission. CXR shows non-consolidative infiltrates. Asthma exacerbation. Improving Nonconsolidative bilateral infiltrates with elevated BNP - Will give patient supplemental O2 as needed, DuoNeb PRN - Dc IV Solu-Medrol switch to po steroids - Continue Lasix switched to p.o. - Will also consult Dr. Oquendo with regards to her asthma. - Obtain echo still not done and consult patient's ground defence officer. Lexiscan negative in February 2017 Hypertension, uncontrolled. Improved continue Cozaar and hydralazine and monitor hyperlipidemia -continue atorvastatin 20 mg nightly. Anxiety, depression -continue Effexor 75 mg daily. A. fib. Currently in sinus rhythm continue aspirin. Patient to follow-up with cardiology/PCP regarding anticoagulation. Patient developed sinus tachycardia yesterday improved today. Cannot start beta-martin secondary to asthma. Intolerant to calcium channel martin Acute kidney injury. Elevated BUNs likely secondary to steroids. Nonoliguric. Avoid nephrotoxins will monitor. Improved today full code. Lovenox. Pt Condition on Discharge: Stable Discharge Disposition: Discharge Home Discharge Time: > 30 minutes Discharge Instructions DIET: Follow Instructions for: Heart Healthy Diet Activities you can perform: Regular-No Restrictions Activities to Avoid: Driving Follow up Referrals: Cardiology - 1 Week PCP Follow-up - 2-3 Days Pulmonology - 1 Week New Medications: Furosemide (Furosemide) 40 Mg Tab 40 MG PO DAILY for Blood Pressure Management, #30 TAB Hydralazine HCl (Hydralazine HCl) 25 Mg Tablet 25 MG PO Q12HR for Blood Pressure Management, #60 TAB Losartan (Cozaar) 50 Mg Tab 50 MG PO DAILY for Blood Pressure Management, #30 TAB Continued Medications: Albuterol 6.7 GM Inh (Proventil Hfa 6.7 GM Inh) 90 Mcg/Act Aer 1 PUFF INH Q4H PRN for SHORTNESS OF BREATH, #1 INHALER 0 Refills Albuterol Neb (Albuterol Neb) 1.25 Mg/3 Ml Neb 1.25 MG NEB QID NEB PRN for SHORTNESS OF BREATH, #125 NEBULE [address] (Adult Aspirin EC Low Strength) 81 Mg Tabec 162 MG PO DAILY for Heart, #30 TAB 0 Refills Atorvastatin (Atorvastatin) 20 Mg Tab 20 MG PO HS for Cholesterol Management, #30 TAB 0 Refills Fluticasone-Salmeterol Inh (Advair Diskus Inh) 500-50 Mcg/Blist Aer 2 PUFF INH BID, #1 INHALER 0 Refills Rinse mouth after use. Ipratropium-Albuterol Neb (Duoneb) 0.5-2.5 Mg/3 Ml Neb 1 AMPULE NEB QID NEB for Dyspnea, #30 ML 0 Refills Mirtazapine (Mirtazapine) 15 Mg Tab 7.5 MG PO HS for Depression Control, #30 TAB 0 Refills Multiple Vitamin (Daily Multiple Vitamin) 1 Tab Tab 1 TAB PO DAILY Nitroglycerin SL (Nitrostat SL) 0.4 Mg Subl 0.4 MG SL Q5M PRN for ANGINA for 30 Days, #30 TAB Oxycodone (Oxycodone) 10 Mg Tab 10 MG PO Q6H PRN for PAIN, TAB 0 Refills Potassium Chloride ER (Potassium Chloride ER) 10 Meq Cap 10 MEQ PO DAILY for Electrolyte Replacement, #30 CAP 0 Refills Prednisone (Prednisone) 10 Mg Tab 10 MG PO DAILY, TAB 0 Refills Venlafaxine (Effexor) 75 Mg Tab 75 MG PO DAILY, #60 TAB 0 Refills Discontinued Medications: Furosemide (Lasix) 20 Mg Tab 20 MG PO DAILY, #30 TAB 0 Refills Taurus Aiken MD September 01, 2017 15:03
--- NOTE | 2017-09-01 16:07 | ECHRPT ---
Indication: HEART FAILURE CONCLUSIONS Normal left ventricular size and wall thickness. The left ventricular systolic function is normal wi th an estimated ejection fraction in the range of 60-65%. Normal wall motion. There is trace tricuspid valve regurgitation. Trileaflet aortic valve. Minimal to mild leaflet sclerosis. BP: / HR: Rhythm: Sinus MEASUREMENTS (Male / Female) Normal Values Technical Quality:Technically difficult study 2D ECHO LVOT Diameter 1.9 cm LV Ejection Fraction MOD 4C 56.9 % LV Ejection Fraction 4C AL 61.1 % M-MODE Aortic Root Diameter MM 2.5 cm LA Systolic Diameter MM 4.0 cm LA Ao Ratio MM 1.6 AV Cusp Separation MM 1.4 cm DOPPLER AV Peak Velocity 204.0 cm/s AV Peak Gradient 16.6 mmHg LVOT Peak Velocity 114.0 cm/s LVOT Peak Gradient 5.2 mmHg AV Area Cont Eq pk 1.6 cm MV Area PHT 7.9 cm Mitral E Point Velocity 86.4 cm/s Mitral A Point Velocity 118.0 cm/s Mitral E to A Ratio 0.7 LV E' Septal Velocity 8.9 cm/s Mitral E to LV E' Septal Ratio 9.7 PV Peak Velocity 96.4 cm/s PV Peak Gradient 3.7 mmHg FINDINGS LEFT VENTRICLE Normal left ventricular size and wall thickness. The left ventricular systolic function is normal wi th an estimated ejection fraction in the range of 60-65%. Normal wall motion. RIGHT VENTRICLE Normal right ventricular size and systolic function. LEFT ATRIUM The left atrial size is normal. RIGHT ATRIUM The right atrial size is normal. ATRIAL SEPTUM Normal atrial septal thickness without atrial level shunting by limited color doppler interrogation. AORTA The aortic root and proximal ascending aorta are normal in size on limited imaging. MITRAL VALVE Structurally normal mitral valve. No mitral valve stenosis or regurgitation. AORTIC VALVE Trileaflet aortic valve. Minimal to mild leaflet sclerosis. TRICUSPID VALVE There is trace tricuspid valve regurgitation. PULMONARY VALVE The pulmonary valve is not well visualized. VESSELS The inferior vena cava is normal in size. PERICARDIUM No pericardial effusion. Radhames Kirk MD (Electronically Signed) Final Date:01 Sep 2017 16:06
== END 2017-09-01 19:06 | disposition home or self-care (01) | DRG 202 ==
LOC: NEPC 18:32 → NEDA 21:55 → UNDOADMIN 22:03 → NEDA 22:03 → NEPFCDU 23:40
PROVIDERS: ADMIT Internal Medicine; ATTEND Internal Medicine
DX: J45.901 Unspecified asthma with (acute) exacerbation (principal); Z79.52 Long term (current) use of systemic steroids; N17.9 Acute kidney failure, unspecified; J44.9 Chronic obstructive pulmonary disease, unspecified; I48.0 Paroxysmal atrial fibrillation; F41.9 Anxiety disorder, unspecified; F32.9 Major depressive disorder, single episode, unspecified; E78.5 Hyperlipidemia, unspecified; I12.9 Hypertensive chronic kidney disease with stage 1 through stage 4 chronic kidney disease, or unspecified chronic kidney disease; N18.9 Chronic kidney disease, unspecified; M81.0 Age-related osteoporosis without current pathological fracture; E03.9 Hypothyroidism, unspecified; R00.0 Tachycardia, unspecified; Z86.010 Personal history of colon polyps
CPT/HCPCS: 71045; 71046; 80048; 81001; 83735; 83880; 84484; 85025; 93005; 93306; 94640; 94664; 96374; 96375; J1650; J1940; J2920; J2930; J7512; Q0163

== ENCOUNTER 2017-09-16 16:34 | Observation (INO) | payer MEDICARE, OTHER ==
[~2017-09-16] VITALS: Ht 167.6 cm; Wt 79.4 kg
[~2017-09-16 16:34] MED LIST changes: +COZA50TA PO; -FURO1TAB60 PO; -FURO1TAB62 PO; +FURO40TA PO; +HYDR-3799 PO; -MACR100C2 PO; -METO2.5T PO; +PRED10 PO; -PRED2.5T PO; -ZOFR4TAB3 SL
[2017-09-16 16:42] VITALS: BP 211/90; PULSE 104; RESP 30; TEMP 98.8; O2SAT 96
[2017-09-16] MEDS ORDERED: METO2.5T PO (16:51)
--- NOTE | 2017-09-16 16:54 | PD ---
HPI Chief Complaint: Respiratory Symptoms Time Seen by Provider: 16:47 Travel History International Travel<30 days: No Contact w/Intl Traveler<30days: No Traveled to known affect area: No History of Present Illness HPI Patient presents to the emergency department complaint of asthma type states that she was admitted to an half weeks ago for "fluid around lungs and heart." They "just gave me Lasix." She denies prior ICU admission or intubation for asthma. She denies fever, chills, nausea, vomiting, cough, chest pain, recent travel, but reports lower extremity edema/chest tightness/dyspnea/headache. States that the symptoms feel like a typical asthma attack. Use her inhaler and nebulizer approximately 2 hours ago. She is also on 20 mg of steroids daily. Patient did not take any of her blood pressure medicine today. PFSH Past Medical History Hx Anticoagulant Therapy: Yes (asa 81mg) Arthritis: Yes (lower back) Asthma: Yes Atrial Fibrillation: Yes Autoimmune Disease: No Anxiety: Yes Depression: No Heart Rhythm Problems: No Cancer: Yes (RIGHT FOOT) Cardiovascular Problems: Yes (a-fib) High Cholesterol: Yes Chemotherapy: No Chest Pain: No Congestive Heart Failure: No COPD: Yes Cerebrovascular Accident: No Coronary Artery Disease: Yes (Pt reports she has A-Fib) Diabetes: No Diminished Hearing: No Endocrine: Yes Gastrointestinal Disorders: Yes (HX OF CONSTIPATION, TAKES MIRALAX EVERY OTHER DAY) GERD: No Genitourinary: Yes ([employer] BLADDER SURGERY) Headaches: Yes Hiatal Hernia: No Heparin Induced Thrombocytopen: No Hypertension: Yes Immune Disorder: No Implanted Vascular Access Dvce: No Kidney Stones: Yes (2006) Musculoskeletal: Yes Neurologic: Yes Psychiatric: Yes Reproductive: No Respiratory: Yes (asthma) Immunizations Current: Yes Migraines: No Pneumonia: Yes Radiation Therapy: No Renal Failure: No Seizures: No Sickle Cell Disease: No Sleep Apnea: No Thyroid Disease: Yes Tetanus Vaccination: Unknown ?: Not Menopausal: Yes Past Surgical History Abdominal Surgery: Yes (hysterectomy) AICD: No Arteriovenous Shunt: No Cardiac Surgery: No Ear Surgery: No Endocrine Surgery: Yes (parathyroid surgery) Eye Surgery: No Genitourinary Surgery: Yes (KIDNEY STONES REMOVED 2006) Gynecologic Surgery: Yes ( BLADDER LIFT) Hysterectomy: Yes Insulin Pump: No Joint Replacement: No Neurologic Surgery: No Oral Surgery: No Pacemaker: No Thoracic Surgery: No Other Surgery: Yes (PARATHYROID SURGERY, angioplasty right leg) Social History Alcohol Use: No Tobacco Use: No Substance Use: No Allergies-Medications (Allergen,Severity, Reaction): Coded Allergies: diatrizoate meglumine (Unverified Allergy, Unknown, Shortness of Breath, ) gadobenic acid (Unverified Allergy, Unknown, Shortness of Breath, 08/29/17) gadodiamide (Unverified Allergy, Unknown, Shortness of Breath, 08/29/17) gadoteridol (Unverified Allergy, Unknown, Shortness of Breath, 08/29/17) iodixanol (Unverified Allergy, Unknown, Shortness of Breath, 08/29/17) iohexol (Unverified Allergy, Unknown, Shortness of Breath, 08/29/17) Reported Meds & Prescriptions Reported Meds & Active Scripts Active Furosemide 40 Mg Tab 40 Mg PO DAILY Cozaar (Losartan Potassium) 50 Mg Tab 50 Mg PO DAILY Hydralazine HCl 25 Mg Tablet 25 Mg PO Q12HR Atorvastatin (Atorvastatin Calcium) 20 Mg Tab 20 Mg PO HS Nitrostat SL (Nitroglycerin) 0.4 Mg Subl 0.4 Mg SL Q5M PRN 30 Days Proventil Hfa 6.7 GM Inh (Albuterol Sulfate) 90 Mcg/Act Aer 1 Puff INH Q4H PRN Reported Metolazone 2.5 Mg Tab 2.5 Mg PO DAILY Effexor (Venlafaxine HCl) 75 Mg Tab 75 Mg PO DAILY Albuterol Neb (Albuterol Sulfate) 1.25 Mg/3 Ml Neb 1.25 Mg NEB QID NEB PRN Review of Systems Except as stated in HPI: all other systems reviewed are Neg Physical Exam Narrative GENERAL: Respiratory distress. SKIN: Focused skin assessment warm/dry. HEAD: Atraumatic. Normocephalic. EYES: Pupils equal and round. No scleral icterus. No injection or drainage. ENT: No nasal bleeding or discharge. Mucous membranes pink and moist. NECK: Trachea midline. No JVD. CARDIOVASCULAR: Regular rate and rhythm. No murmur appreciated. RESPIRATORY: Poor air movement with inspiratory and expiratory wheezing bilaterally. GASTROINTESTINAL: Abdomen soft, non-tender, nondistended. Hepatic and splenic margins not palpable. MUSCULOSKELETAL: No obvious deformities. No clubbing. No cyanosis. Bilateral lower extremity edema. NEUROLOGICAL: Awake and alert. No obvious cranial nerve deficits. Motor grossly within normal limits. Normal speech. PSYCHIATRIC: Appropriate mood and affect; insight and judgment normal. Data Data Last Documented VS Vital Signs Date Time Temp Pulse Resp B/P (MAP) Pulse Ox O2 Delivery O2 Flow Rate FiO2 09/16/17 17:41 98.7 105 20 172/84 (113) 97 Room Air 09/16/17 17:03 21 Orders Orders Complete Blood Count With Diff (09/16/17 16:51) Comprehensive Metabolic Panel (09/16/17 16:51) B-Type Natriuretic Peptide (09/16/17 16:51) Act Partial Throm Time (Ptt) (09/16/17 16:51) Prothrombin Time / Inr (Pt) (09/16/17 16:51) Magnesium (Mg) (09/16/17 16:51) Ckmb (Isoenzyme) Profile (09/16/17 16:51) Troponin I (09/16/17 16:51) Iv Access Insert/Monitor (09/16/17 16:51) Electrocardiogram (09/16/17 16:51) Ecg Monitoring (09/16/17 16:51) Oximetry (09/16/17 16:51) Oxygen Administration (09/16/17 16:51) Chest, Single Ap (09/16/17 16:51) Sodium Chloride 0.9% Flush (Ns Flush) (09/16/17 17:00) Methylprednisolone So Succ Inj (Solumedr (09/16/17 17:00) Albuterol-Ipratropium Neb (Duoneb Neb) (09/16/17 17:00) Hydralazine (Apresoline) (09/16/17 18:00) Losartan (Cozaar) (09/16/17 18:00) Furosemide (Lasix) (09/16/17 18:00) CKMB (09/16/17 17:05) CKMB% (09/16/17 17:05) Albuterol Neb (Albuterol Neb) (09/16/17 20:00) Albuterol Neb (Albuterol Neb) (09/16/17 19:15) Budeson-Formot 160-4.5 Mcg Inh (Symbicor (09/16/17 21:00) Methylprednisolone So Succ Inj (Solumedr (09/17/17 00:00) Bedside Glucose ANDREI.CSUGAR (09/16/17:15) Blood Glucose Goal (Criteria) (09/16/17:15) Hypoglycemia 70 Mg/Dl Or < (09/16/17:15) Notify Dr: Other (09/16/17:15) Dextrose 50% In [place]line (Vial) Inj (D50w (Vi (09/16/17:15) Glucagon Inj (Glucagon Inj) (09/16/17:15) Insulin Aspart Supplemtl Scale (Novolog (09/16/17 21:00) Place In Observation (09/16/17 ) Vital Signs (Adult) Q4H (09/16/17:) Activity Oob With Assistance (09/16/17:) Intake + Output ANDREI.QSHIFT (09/16/17:15) Diet 1800 Ada Cons Carb (09/17/17 Breakfast) Sodium Chloride 0.9% Flush (Ns Flush) (09/16/17:15) Sodium Chloride 0.9% Flush (Ns Flush) (09/16/17 21:00) Metoclopramide Inj (Reglan Inj) (09/16/17:15) Comprehensive Metabolic Panel (09/17/17 06:00) Complete Blood Count With Diff (09/17/17 06:00) Heparin Inj (Heparin Inj) (09/17/17 09:00) Acetaminophen (Tylenol) (09/16/17:15) Acetamin-Hydrocod 325-5 Mg ([place] 5-325 (09/16/17 19:15) Acetamin-Hydrocod 325-10 Mg ([place] 10-32 (09/16/17 19:15) Docusate Sodium-Senna (Debbi-Colace) (09/16/17 21:00) Magnesium Hydroxide Liq (Milk Of Magnesi (09/16/17 19:15) Sennosides (Senokot) (09/16/17 19:15) Bisacodyl Supp (Dulcolax Supp) (09/16/17 19:15) Lactulose Liq (Lactulose Liq) (09/16/17 19:15) Atorvastatin (Lipitor) (09/16/17 21:00) Furosemide (Lasix) (09/17/17 09:00) Hydralazine (Apresoline) (09/16/17 21:00) Losartan (Cozaar) (09/17/17 09:00) Metolazone (Zaroxolyn) (09/17/17 09:00) (Nf) Venlafaxine (Effexor) (09/17/17 09:00) Labs Laboratory Tests Test 09/16/17 17:05 White Blood Count 6.5 TH/MM3 Red Blood Count 4.00 MIL/MM3 Hemoglobin 10.4 GM/DL Hematocrit 33.8 % Mean Corpuscular Volume 84.5 FL Mean Corpuscular Hemoglobin 26.0 PG Mean Corpuscular Hemoglobin Concent 30.8 % Red Cell Distribution Width 14.8 % Platelet Count 260 TH/MM3 Mean Platelet Volume 8.5 FL Neutrophils (%) (Auto) 89.2 % Lymphocytes (%) (Auto) 8.4 % Monocytes (%) (Auto) 1.9 % Eosinophils (%) (Auto) 0.3 % Basophils (%) (Auto) 0.2 % Neutrophils # (Auto) 5.9 TH/MM3 Lymphocytes # (Auto) 0.5 TH/MM3 Monocytes # (Auto) 0.1 TH/MM3 Eosinophils # (Auto) 0.0 TH/MM3 Basophils # (Auto) 0.0 TH/MM3 CBC Comment DIFF FINAL Differential Comment Prothrombin Time 9.9 SEC Prothromb Time International Ratio 1.0 RATIO Activated Partial Thromboplast Time 23.1 SEC Blood Urea Nitrogen 17 MG/DL Creatinine 0.86 MG/DL Random Glucose 236 MG/DL Total Protein 6.5 GM/DL Albumin 3.0 GM/DL Calcium Level 8.3 MG/DL Magnesium Level 2.0 MG/DL Alkaline Phosphatase 81 U/L Aspartate Amino Transf (AST/SGOT) 14 U/L Alanine Aminotransferase (ALT/SGPT) 20 U/L Total Bilirubin 0.2 MG/DL Sodium Level 142 MEQ/L Potassium Level 3.9 MEQ/L Chloride Level 109 MEQ/L Carbon Dioxide Level 24.8 MEQ/L Anion Gap 8 MEQ/L Estimat Glomerular Filtration Rate 64 ML/MIN Total Creatine Kinase 427 U/L Creatine Kinase MB 1.0 NG/ML Creatine Kinase MB % 0.2 % Troponin I LESS THAN 0.02 NG/ML B-Type Natriuretic Peptide 192 PG/ML MDM Medical Decision Making Medical Screen Exam Complete: Yes Emergency Medical Condition: Yes Interpretation(s) ECG: Sinus rhythm, rate 96, normal axis, QTC 391, no ST elevation Labs: Decrease Hgb/HCT, increase BNP/glucose/CK Last Impressions Chest X-Ray 09/16/17 1651 Signed Impressions: CONCLUSION: No acute infiltrate. Stable chronic interstitial changes in the lungs. Mild sco liosis. Differential Diagnosis Asthma exacerbation, CHF exacerbation, ACS, PE Narrative Course Patient presents to the emergency department complaint of asthma attack. Patient placed on security monitor, IV access obtained, and EKG/chest x-ray/labs/ IV steroids (125mg methylprednisolone)/duo nebs x 3 ordered. 1800: Patient did not take her blood pressure medication today. Written for losartan 50 mg, Lasix 40 mg, and hydralazine 25 mg all p.o. States that she feels much better after breathing treatments and IV steroids. Patient had difficulty ambulating in ER secondary to dyspnea. Will admit for observation. Diagnosis Primary Impression: Acute asthma exacerbation Qualified Codes: J45.901 - Unspecified asthma with (acute) exacerbation Admitting Information Admitting Physician Requests: Observation Condition: Stable Juany Villalta MD Sep 16, 2017 16:54
[2017-09-16] MEDS: RESP: ALBUTEROL 2.5 MG/IPRATROPIUM 0.5 MG NEB (SCH) INH (16:58)
[2017-09-16] MEDS ORDERED: methylPREDNISolone SOD SUCC 125 MG/2 ML VIAL IV PUSH ONE (17:00)
[2017-09-16] MEDS ORDERED: SODIUM CHLORIDE 0.9% FLUSH 10 ML FLUSH IVF PRN (17:00)
[2017-09-16 17:03] VITALS: O2SAT 95
[2017-09-16 17:05] VITALS: O2SAT 97
[2017-09-16 17:31] LABS: AUTOMATED NEUTROPHIL # 5.9 TH/MM3 (1.8-7.7); BASOPHIL % 0.2 % (0.0-2.0); EOSINOPHIL % 0.3 % (0.0-4.0); HEMATOCRIT 33.8 % (35.0-46.0); HEMOGLOBIN 10.4 GM/DL (11.6-15.3); LYMPH % 8.4 % (9.0-44.0); LYMPHOCYTE # 0.5 TH/MM3 (1.0-4.8); MEAN CELL VOLUME 84.5 FL (80.0-100.0); MEAN CORPUSCULAR HGB CONC 30.8 % (32.0-36.0); MEAN PLATELET VOLUME 8.5 FL (7.0-11.0); MONO % 1.9 % (0.0-8.0); MONOCYTE # 0.1 TH/MM3 (0-0.9); NEUT % 89.2 % (16.0-70.0); PLATELET COUNT 260 TH/MM3 (150-450); RED CELL DISTRIBUTION WIDTH 14.8 % (11.6-17.2); WHITE BLOOD COUNT 6.5 TH/MM3 (4.0-11.0)
--- NOTE | 2017-09-16 17:39 | RADRPT ---
EXAM DATE: 09/16/2017 5:28 PM EDT AGE/SEX: 76 years / Female INDICATIONS: Short of breath. Weakness. CLINICAL DATA: This is the patient's initial encounter. Patient reports that signs and symptoms have been present for 3 days and indicates a pain score of 5/10. MEDICAL/SURGICAL HISTORY: None. None. COMPARISON: [facility] – [place], CHEST PA & LAT, 09/01/2017. . FINDINGS: Minimal basilar atelectasis or scarring. Stable chronic interstitial changes. No effusion. No pneumot horax. Stimulator wire overlies thoracic spine. Mild scoliosis. CONCLUSION: No acute infiltrate. Stable chronic interstitial changes in the lungs. Mild scoliosis. Electronically signed by: Иван Alvarado MD 09/16/2017 5:38 PM EDT
[2017-09-16 17:41] VITALS: BP 172/84; PULSE 105; RESP 20; TEMP 98.7; O2SAT 97
[2017-09-16 17:45] LABS: PROTHROMBIN TIME - PATIENT 9.9 SEC (9.8-11.6)
[2017-09-16] MEDS ORDERED: FUROSEMIDE 40 MG TAB PO ONE (18:00)
[2017-09-16] MEDS ORDERED: LOSARTAN 50 MG TAB PO ONE (18:00)
[2017-09-16] MEDS ORDERED: hydrALAZINE HCL 25 MG TAB PO ONE (18:00)
[2017-09-16 18:23] LABS: CHLORIDE 109 MEQ/L (98-107); SODIUM (NA) 142 MEQ/L (136-145)
[2017-09-16 18:26] LABS: CALCIUM 8.3 MG/DL (8.5-10.1)
[2017-09-16 18:27] LABS: BICARBONATE 24.8 MEQ/L (21.0-32.0); BLOOD UREA NITROGEN 17 MG/DL (7-18); GLUCOSE,RANDOM 236 MG/DL (74-106)
[2017-09-16 18:30] LABS: ALT (GPT) 20 U/L (10-53); AST (GOT) 14 U/L (15-37); CREATININE 0.86 MG/DL (0.50-1.00); GLOMERULAR FILTRATION RATE 64 ML/MIN (>89)
[2017-09-16 18:31] LABS: TOTAL BILIRUBIN ADULT 0.2 MG/DL (0.2-1.0)
[2017-09-16 18:32] LABS: TOTAL PROTEIN 6.5 GM/DL (6.4-8.2)
[2017-09-16 18:33] LABS: ALKALINE PHOSPHATASE 81 U/L (45-117); TROPONIN I LESS THAN 0.02 NG/ML (0.02-0.05)
[2017-09-16] MEDS ORDERED: DEXTROSE 50% IN WATER 50 ML VIAL(D50) IV PUSH PRN (19:15)
[2017-09-16] MEDS ORDERED: LACTULOSE SYRUP 20 GM/30 ML CUP PO PRN (19:15)
[2017-09-16] MEDS ORDERED: ACETAMINOPHEN 325 MG TAB PO PRN (19:15)
[2017-09-16] MEDS ORDERED: METOCLOPRAMIDE HCL 10 MG/2 ML VIAL IV PUSH PRN (19:15)
[2017-09-16] MEDS ORDERED: SODIUM CHLORIDE 0.9% FLUSH 10 ML FLUSH IV FLUSH PRN (19:15)
[2017-09-16] MEDS ORDERED: SENNOSIDES 8.6 MG TAB PO PRN (19:15)
[2017-09-16] MEDS ORDERED: ACETAMINOPHEN/HYDROcodone 325 MG/5 MG TAB PO PRN (19:15)
[2017-09-16] MEDS ORDERED: GLUCAGON 1 MG/ML VIAL OTHER PRN (19:15)
[2017-09-16] MEDS ORDERED: BISACODYL 10 MG SUPP RECTAL PRN (19:15)
[2017-09-16] MEDS ORDERED: MAGNESIUM HYDROXIDE SUSP 30 ML CUP PO PRN (19:15)
[2017-09-16] MEDS: RESP: ALBUTEROL 2.5 MG/3 ML NEB (SCH) NEB (19:59)
[2017-09-16 20:00] VITALS: BP 167/72; PULSE 98; RESP 20; TEMP 98.3; O2SAT 95
[2017-09-16] MEDS ORDERED: RESP: ALBUTEROL 2.5 MG/3 ML NEB (PRN) NEB (20:00)
[2017-09-16 20:11] VITALS: BP 142/73; PULSE 95; RESP 20; O2SAT 95
[2017-09-16] MEDS: DOCUSATE SODIUM 50 MG/SENNA 8.6 MG TAB PO SCH (21:00)
[2017-09-16] MEDS: BUDESONIDE-FORMOTEROL 160/4.5 MCG INHALER INH SCH (22:09)
[2017-09-16] MEDS: hydrALAZINE HCL 25 MG TAB PO SCH (22:10)
[2017-09-16] MEDS: SODIUM CHLORIDE 0.9% FLUSH 10 ML FLUSH IV FLUSH SCH (22:10)
[2017-09-16] MEDS: INSULIN ASPART SUPPLEMENTAL SCALE SQ SCH (22:45)
[2017-09-16] MEDS: methylPREDNISolone SOD SUCC 40 MG/1 ML VIAL IV PUSH SCH (23:52)
[2017-09-17] VITALS: BP 137/72; PULSE 87; RESP 20; TEMP 98.4; O2SAT 95
[2017-09-17] MEDS ORDERED: MELATONIN 5 MG TAB PO ONE (00:15)
[2017-09-17] MEDS: methylPREDNISolone SOD SUCC 40 MG/1 ML VIAL IV PUSH SCH ×2 (04:46→12:54)
[2017-09-17] MEDS: ACETAMINOPHEN/HYDROcodone 325 MG/10 MG TAB PO PRN ×2 (04:46→12:54)
[2017-09-17 06:26] LABS: AUTOMATED NEUTROPHIL # 4.3 TH/MM3 (1.8-7.7); BASOPHIL % 0.1 % (0.0-2.0); HEMATOCRIT 31.7 % (35.0-46.0); HEMOGLOBIN 9.8 GM/DL (11.6-15.3); LYMPH % 13.1 % (9.0-44.0); LYMPHOCYTE # 0.6 TH/MM3 (1.0-4.8); MEAN CELL VOLUME 83.7 FL (80.0-100.0); MEAN CORPUSCULAR HEMOGLOBIN 25.9 PG (27.0-34.0); MEAN CORPUSCULAR HGB CONC 30.9 % (32.0-36.0); MEAN PLATELET VOLUME 8.4 FL (7.0-11.0); NEUT % 85.8 % (16.0-70.0); PLATELET COUNT 225 TH/MM3 (150-450); RED BLOOD COUNT 3.78 MIL/MM3 (4.00-5.30); RED CELL DISTRIBUTION WIDTH 14.5 % (11.6-17.2); WHITE BLOOD COUNT 4.9 TH/MM3 (4.0-11.0)
[2017-09-17 06:37] LABS: CHLORIDE 107 MEQ/L (98-107); SODIUM (NA) 142 MEQ/L (136-145)
[2017-09-17 06:44] LABS: ALBUMIN 2.9 GM/DL (3.4-5.0)
[2017-09-17 06:45] LABS: BLOOD UREA NITROGEN 19 MG/DL (7-18); GLUCOSE,RANDOM 137 MG/DL (74-106)
[2017-09-17 06:47] LABS: ALT (GPT) 17 U/L (10-53); AST (GOT) 10 U/L (15-37); CREATININE 0.69 MG/DL (0.50-1.00); GLOMERULAR FILTRATION RATE 83 ML/MIN (>89)
[2017-09-17 06:49] LABS: TOTAL BILIRUBIN ADULT 0.3 MG/DL (0.2-1.0); TOTAL PROTEIN 6.3 GM/DL (6.4-8.2)
[2017-09-17 06:50] LABS: ALKALINE PHOSPHATASE 64 U/L (45-117)
[2017-09-17] MEDS ORDERED: POTASSIUM CHLORIDE 20 MEQ CONTROLLED RELEASE TAB PO ONE (07:15)
[2017-09-17] MEDS: RESP: ALBUTEROL 2.5 MG/3 ML NEB (SCH) NEB ×3 (07:37→15:09)
[2017-09-17] MEDS: INSULIN ASPART SUPPLEMENTAL SCALE SQ SCH ×2 (07:39→12:54)
[2017-09-17 07:43] LABS: TROPONIN I LESS THAN 0.02 NG/ML (0.02-0.05)
[2017-09-17 07:45] VITALS: O2SAT 94
[2017-09-17 08:41] VITALS: BP 157/76; PULSE 81; RESP 15; TEMP 96.3; O2SAT 99
[2017-09-17] MEDS: hydrALAZINE HCL 25 MG TAB PO SCH (08:45)
[2017-09-17] MEDS: SODIUM CHLORIDE 0.9% FLUSH 10 ML FLUSH IV FLUSH SCH (08:47)
[2017-09-17] MEDS: DOCUSATE SODIUM 50 MG/SENNA 8.6 MG TAB PO SCH (08:47)
[2017-09-17] MEDS: BUDESONIDE-FORMOTEROL 160/4.5 MCG INHALER INH SCH (08:47)
[2017-09-17] MEDS ORDERED: METOLAZONE 2.5 MG TAB PO SCH (09:00)
[2017-09-17] MEDS ORDERED: VENLAFAXINE HCL XR 75 MG CAP PO SCH (09:00)
[2017-09-17] MEDS ORDERED: FUROSEMIDE 40 MG TAB PO SCH (09:00)
[2017-09-17] MEDS ORDERED: HEPARIN SODIUM - SQ 10,000 UNITS/ML VIAL SQ SCH (09:00)
[2017-09-17] MEDS ORDERED: LOSARTAN 50 MG TAB PO SCH (09:00)
--- NOTE | 2017-09-17 09:05 | HHI.HP ---
[facility] Service [facility] Primary Care Physician Pilo Alarcon MD Admission Diagnosis Asthma exacerbation Diagnoses: (1) Acute asthma exacerbation Diagnosis: Principal Chief Complaint: difficulty breathing Travel History International Travel<30 Days: No Contact w/Intl Traveler <30 Da: No Traveled to Known Affected Are: No History of Present Illness Written by Oskar Palacios, acting as scribe for Dr. Ch on 09/17/17 at 09: 01. 76-year-old female with known history of asthma, documentation of COPD , hypertension, hyperlipidemia, atrial fibrillation who presented the hospital because of shortness of breath, dyspnea on exertion. Patient states that she has had respiratory symptoms for quite a long time. She states that her symptoms originally started back in December 2016. If she has not made it to baseline since then despite her recurrent admissions to the hospital, outpatient treatments. Patient does have underlying history of asthma/COPD on chronic steroids. She is followed by Dr. Oquendo in outpatient setting and last week she started getting short of breath again so she called his office and she was told to increase her prednisone to 30 mg a day in which she did on , Sunday, Sunday. She decreased down to 20 mg and started getting her shortness of breath and dyspnea back in because of that reason she came to emergency department for evaluation. Patient denies any sick exposures. She indicates that there is no carpet in the house. There is a dog that lives in her home that has been there for approximately 1 year. She indicates that there has been construction in her home and a smell of mold has started to come into her bedroom. Patient is followed by Dr. Reed for cardiology in the outpatient setting. Patient does carry a diagnosis of atrial fibrillation, currently in sinus rhythm. She indicates that she was notified at one time that she does have an irregular heart rate, however it was not reinforced to her when she came back to [place]. She admits to not taking her medications as directed. On the last few previous admissions to the hospital it appears that she did come in with hypertensive emergencies. When she is placed back on medications her blood pressure appears to do well while in the hospital. She does carry a diagnosis of chronic diastolic congestive heart failure. She denies any lower extremity edema. However she states that he has had dyspnea on exertion which progressively getting worse where she cannot walk from the couch to the bed. She denies any monitoring of fluid restrictions. He indicates he drinks at least 1 cup of coffee in the morning, 16 ounces of soda/ cranberry juice a day as well as 16 ounces of water during the day. Currently the patient does not indicate any chest pain, lower extremity edema. Review of Systems Respiratory: COMPLAINS OF: Shortness of breath Cardiovascular: COMPLAINS OF: Dyspnea on Exertion Except as stated in HPI: all other systems reviewed are Neg Past Family Social History Past Medical History Atrial fibrillation Chronic obstructive pulmonary disease Asthma Hyperlipidemia Anxiety/depression. Past Surgical History Hysterectomy Parathyroid surgery Bladder suspension surgery Reported Medications Reported Meds & Active Scripts Active Furosemide 40 Mg Tab 40 Mg PO DAILY Cozaar (Losartan Potassium) 50 Mg Tab 50 Mg PO DAILY Hydralazine HCl 25 Mg Tablet 25 Mg PO Q12HR Atorvastatin (Atorvastatin Calcium) 20 Mg Tab 20 Mg PO HS Nitrostat SL (Nitroglycerin) 0.4 Mg Subl 0.4 Mg SL Q5M PRN 30 Days Proventil Hfa 6.7 GM Inh (Albuterol Sulfate) 90 Mcg/Act Aer 1 Puff INH Q4H PRN Reported Metolazone 2.5 Mg Tab 2.5 Mg PO DAILY Effexor (Venlafaxine HCl) 75 Mg Tab 75 Mg PO DAILY Albuterol Neb (Albuterol Sulfate) 1.25 Mg/3 Ml Neb 1.25 Mg NEB QID NEB PRN Allergies: Coded Allergies: diatrizoate meglumine (Unverified Allergy, Unknown, Shortness of Breath, ) gadobenic acid (Unverified Allergy, Unknown, Shortness of Breath, 08/29/17) gadodiamide (Unverified Allergy, Unknown, Shortness of Breath, 08/29/17) gadoteridol (Unverified Allergy, Unknown, Shortness of Breath, 08/29/17) iodixanol (Unverified Allergy, Unknown, Shortness of Breath, 08/29/17) iohexol (Unverified Allergy, Unknown, Shortness of Breath, 08/29/17) Family History Family history was reviewed and significant for Father with Asthma. Other history positive for diabetes, hypertension, CVA Social History Denies any tobacco use. Denies any alcohol use. Denies any illicit drug use. Physical Exam Vital Signs Vital Signs Date Time Temp Pulse Resp B/P (MAP) Pulse Ox O2 Delivery O2 Flow Rate FiO2 09/17/17 08:41 96.3 81 15 157/76 (103) 99 09/17/17 00:00 98.4 87 20 137/72 (93) 95 09/16/17 20:58 09/16/17 20:11 95 20 142/73 (96) 95 Room Air 09/16/17 20:00 98.3 98 20 167/72 (103) 95 09/16/17 17:41 98.7 105 20 172/84 (113) 97 Room Air 09/16/17 17:05 97 09/16/17 17:05 96 09/16/17 17:03 95 21 09/16/17 16:45 104 30 96 Room Air 09/16/17 16:42 98.8 104 30 211/90 (130) 96 Physical Exam GENERAL: Well-developed, well-nourished, in no acute distress. alert and orientated HEENT: Head is normocephalic without any lesions or masses noted. Facial features are symmetric. Eyes: Pupils equal round reactive to light. Extraocular muscles are intact. Conjunctivae were clear. NECK: Supple without any masses. Trachea midline no deviation. No JVD CARDIAC: Regular rhythm, regular rate. S1/S2 are heard. No murmurs. LUNGS: Clear to auscultation bilaterally. No wheeze. No use of accessory muscles on inspiration or expiration. ABDOMEN: Soft, nontender. Nondistended. Bowel sounds heard in all 4 quadrants. Negative rebound, negative guarding EXTREMITIES: No edema, pulses are equal bilaterally. NEUROLOGY: Mood and affect appear appropriate. Cranial nerves II through XII grossly intact. Muscle strength 5/5 in upper and lower extremities bilaterally. Laboratory Laboratory Tests Test 09/16/17 17:05 09/17/17 06:00 White Blood Count 6.5 4.9 Red Blood Count 4.00 3.78 Hemoglobin 10.4 9.8 Hematocrit 33.8 31.7 Mean Corpuscular Volume 84.5 83.7 Mean Corpuscular Hemoglobin 26.0 25.9 Mean Corpuscular Hemoglobin Concent 30.8 30.9 Red Cell Distribution Width 14.8 14.5 Platelet Count 260 225 Mean Platelet Volume 8.5 8.4 Neutrophils (%) (Auto) 89.2 85.8 Lymphocytes (%) (Auto) 8.4 13.1 Monocytes (%) (Auto) 1.9 1.0 Eosinophils (%) (Auto) 0.3 0.0 Basophils (%) (Auto) 0.2 0.1 Neutrophils # (Auto) 5.9 4.3 Lymphocytes # (Auto) 0.5 0.6 Monocytes # (Auto) 0.1 0.0 Eosinophils # (Auto) 0.0 0.0 Basophils # (Auto) 0.0 0.0 CBC Comment DIFF FINAL DIFF FINAL Differential Comment Prothrombin Time 9.9 Prothromb Time International Ratio 1.0 Activated Partial Thromboplast Time 23.1 Blood Urea Nitrogen 17 19 Creatinine 0.86 0.69 Random Glucose 236 137 Total Protein 6.5 6.3 Albumin 3.0 2.9 Calcium Level 8.3 8.0 Magnesium Level 2.0 Alkaline Phosphatase 81 64 Aspartate Amino Transf (AST/SGOT) 14 10 Alanine Aminotransferase (ALT/SGPT) 20 17 Total Bilirubin 0.2 0.3 Sodium Level 142 142 Potassium Level 3.9 3.4 Chloride Level 109 107 Carbon Dioxide Level 24.8 27.0 Anion Gap 8 8 Estimat Glomerular Filtration Rate 64 83 Total Creatine Kinase 427 389 Creatine Kinase MB 1.0 1.0 Creatine Kinase MB % 0.2 0.3 Troponin I LESS THAN 0.02 LESS THAN 0.02 B-Type Natriuretic Peptide 192 Result Diagram: 09/17/17 0609/17/17 0600 Imaging Last Impressions Chest X-Ray 09/16/17 1651 Signed Impressions: CONCLUSION: No acute infiltrate. Stable chronic interstitial changes in the lungs. Mild sco liosis. Caprini VTE Risk Assessment Caprini VTE Risk Assessment: Mod/High Risk (score >= 2) Caprini Risk Assessment Model Point Value = 1 Point Value = 2 Point Value = 3 Point Value = 5 Age 41-60 Minor surgery BMI > 25 kg/m2 Swollen legs Varicose veins or History of unexplained or recurrent spontaneous Oral contraceptives or hormone replacement Sepsis (< 1 month) Serious lung disease, including pneumonia (< 1 month) Abnormal pulmonary function Acute myocardial infarction Congestive heart failure (< 1 month) History of inflammatory bowel disease Medical patient at bed rest Age 61-74 Arthroscopic surgery Major open surgery (> 45 min) Laparoscopic surgery (> 45 min) Malignancy Confined to bed (> 72 hours) Immobilizing plaster cast Central venous access Age >= 75 History of VTE Family history of VTE Factor V Leiden Prothrombin [id number] Lupus anticoagulant Anticardiolipin antibodies Elevated serum homocysteine Heparin-induced thrombocytopenia Other congenital or acquired thrombophilia Stroke (< 1 month) Elective arthroplasty Hip, pelvis, or leg fracture Acute spinal cord injury (< 1 month) Prophylaxis Regimen Total Risk Factor Score Risk Level Prophylaxis Regimen 0-1 Low Early ambulation 2 Moderate Order ONE of the following: *Sequential Compression Device (SCD) *Heparin 5000 units SQ BID 3-4 Higher Order ONE of the following medications: *Heparin 5000 units SQ TID *Enoxaparin/Lovenox 40 mg SQ daily (WT < 150 kg, CrCl > 30 mL/min) *Enoxaparin/Lovenox 30 mg SQ daily (WT < 150 kg, CrCl > 10-29 mL/min) *Enoxaparin/Lovenox 30 mg SQ BID (WT < 150 kg, CrCl > 30 mL/min) AND/OR *Sequential Compression Device (SCD) 5 or more Highest Order ONE of the following medications: *Heparin 5000 units SQ TID (Preferred with Epidurals) *Enoxaparin/Lovenox 40 mg SQ daily (WT < 150 kg, CrCl > 30 mL/min) *Enoxaparin/Lovenox 30 mg SQ daily (WT < 150 kg, CrCl > 10-29 mL/min) *Enoxaparin/Lovenox 30 mg SQ BID (WT < 150 kg, CrCl > 30 mL/min) AND *Sequential Compression Device (SCD) Assessment and Plan Assessment and Plan Asthma exacerbation, much improved -Patient with recurrent asthma exacerbations, recently there is work being done around her house and there is a mold smell coming into her bedroom which could possibly cause an exacerbation of her underlying lung disease. -Patient continued on oxygen supplementation maintain O2 sats greater than 92%, currently she does not require any oxygen -Continue Solu-Medrol 40 mg IV every 6 hours, anticipate changing to p.o. prednisone -Duo nebs every 4 hours while awake and every 2 hours as needed -Continue Symbicort. f/u w her sql tech. -Pt has been extensively counseled on avoiding triggers that could exacerbate her asthma. she admits to mold in her bedroom. It appears that this could be causing her recurrent exacerbations. -order walk test Accelerated hypertension, resolved -Could be secondary to medication noncompliance -Blood pressure improved at this time History of atrial fibrillation, hyperlipidemia -Currently patient is in sinus rhythm -Continue statin -Patient does follow with Dr. Reed in the outpatient setting, will defer to her any change in treatment DVT prevention -Subcutaneous heparin Discharge disposition Discharge home in stable condition Activity: Ad gaby. Diet: Healthy heart diet Medication per medication reconciliation Follow-up with primary medical doctor in 1 week This note was transcribed by terese Palacios. I, Dr. Kristine Ch personally performed the history, physical exam, and medical decision making; and confirmed the accuracy of the information in the transcribed note. Authenticated by Dr. Kristine Ch on 09/17/17 at 09:01. Code Status Full code Discussed Condition With patient Problem Qualifiers (1) Acute asthma exacerbation: Qualified Codes: J45.901 - Unspecified asthma with (acute) exacerbation Oskar Palacios Sep 17, 2017 09:05 Kristine Ch MD Sep 17, 2017 09:20
[2017-09-17 14:11] VITALS: BP 152/69; PULSE 110; RESP 18; TEMP 97.7; O2SAT 93
[2017-09-17] MEDS ORDERED: Budeson-Formot 160-4.5 Mcg Inh INH (14:39)
[2017-09-17] MEDS ORDERED: PRED20 PO (14:39)
--- NOTE | 2017-09-17 14:51 | EKG ---
Date Performed: 09/16/2017 Time Performed: 17:18:32 PTAGE: 76 years EKG: Sinus rhythm NORMAL ECG Since the PREVIOUS TRACING , no significant change noted PREVIOUS TRACIN08/31/2017 @17.00 DOCTOR: Bipin Contreras Interpretating Date/Time 09/17/2017 14:49:10
--- NOTE | 2017-09-17 14:52 | EKG ---
Date Performed: 09/17/2017 Time Performed: 08:10:12 PTAGE: 76 years EKG: Sinus rhythm WITH OCCASIONAL SUPRAVENTRICULAR PREMATURE COMPLEXES BORDERLINE ECG Since the PREVIOUS TRACING , no significant change noted PREVIOUS TRACIN09/16/2017 17.18 DOCTOR: Bipin Contreras Interpretating Date/Time 09/17/2017 14:49:18
--- NOTE | 2017-09-17 16:36 | HHI.DCPOC ---
Discharge Care Plan Diagnosis: (1) Acute asthma exacerbation Goals to Promote Your Health * To prevent worsening of your condition and complications * To maintain your health at the optimal level Directions to Meet Your Goals Take your medications as prescribed Follow your dietary instruction Follow activity as directed Keep your appointments as scheduled Take your immunizations and boosters as scheduled If your symptoms worsen call your PCP, if no PCP go to Urgent Care Center or Emergency Room Smoking is Dangerous to Your Health. Avoid second hand smoke Call the 24-hour hour crisis hotline for domestic abuse at Oskar Palacios Sep 17, 2017 16:36
[2017-09-17] MEDS ORDERED: ATORVASTATIN 20 MG TAB PO SCH (21:00)
== END 2017-09-17 18:04 | disposition home or self-care (01) ==
LOC: PHED 16:34 → PHEDA 19:32 → PH3A 20:53
PROVIDERS: ADMIT Hospitalist; ATTEND Hospitalist
DX: J45.901 Unspecified asthma with (acute) exacerbation (principal); I11.0 Hypertensive heart disease with heart failure; I50.32 Chronic diastolic (congestive) heart failure; J44.9 Chronic obstructive pulmonary disease, unspecified; I48.91 Unspecified atrial fibrillation; I49.3 Ventricular premature depolarization; E78.5 Hyperlipidemia, unspecified; F41.9 Anxiety disorder, unspecified; F32.9 Major depressive disorder, single episode, unspecified; Z79.52 Long term (current) use of systemic steroids
CPT/HCPCS: 71045; 80053; 82550; 82552; 82948; 83735; 83880; 84484; 85025; 85610; 85730; 93005; 94618; 94640; 94664; 96372; 96374; 96376; 99285; G0378; J1644; J1815; J2920; J2930; J7613

== ENCOUNTER 2017-09-25 15:32 | Emergency (ER) | payer OTHER ==
[~2017-09-25] VITALS: Ht 167.6 cm; Wt 74.4 kg
[~2017-09-25 15:32] MED LIST changes: -ADVA500A INH; -ASPI1TAB56 PO; +Budeson-Formot 160-4.5 Mcg Inh INH; -DAILTAB38 PO; -IPRASOL NEB; +METO2.5T PO; -MIRTA15 PO; -OXYC-395 PO; -POTA10CA PO; -PRED10 PO; +PRED20 PO
[2017-09-25 15:41] VITALS: BP 161/75; PULSE 111; RESP 20; TEMP 98; O2SAT 96
--- NOTE | 2017-09-25 16:26 | PD ---
HPI Chief Complaint: Respiratory Symptoms Time Seen by Provider: 16:18 Travel History International Travel<30 days: No Contact w/Intl Traveler<30days: No Traveled to known affect area: No History of Present Illness HPI Patient comes in complaining of wheezing and shortness of breath, despite using her medications. Patient denies any active smoking. Patient denies any aggravating factors. Patient states alleviation with albuterol use. denies fever/cp/abdpain/backpain/flank pain, also no sore throat/or runny nose. no n/v /d/urgency/frequency/dysuria. Primary patient of [facility] allergy to contrast Past medical history significant for hypothyroidism, wears corrective lenses, atrial fibrillation, hypercholesterolemia, hypertension, COPD, pneumonia, history of constipation, history of diverticulitis, hysterectomy, bladder lift, kidney stone, history of anxiety history of osteoporosis history of pain stimulator removal?, Parathyroid surgery, angioplasty to right leg. PFSH Past Medical History Hx Anticoagulant Therapy: Yes (asa 81mg) Arthritis: Yes (lower back) Asthma: Yes Atrial Fibrillation: Yes Autoimmune Disease: No Anxiety: Yes Depression: No Heart Rhythm Problems: No Cancer: Yes (RIGHT FOOT) Cardiovascular Problems: Yes (a-fib) High Cholesterol: Yes Chemotherapy: No Chest Pain: No Congestive Heart Failure: No COPD: Yes Cerebrovascular Accident: No Coronary Artery Disease: Yes (Pt reports she has A-Fib) Diabetes: No Diminished Hearing: No Endocrine: Yes Gastrointestinal Disorders: Yes (HX OF CONSTIPATION, TAKES MIRALAX EVERY OTHER DAY) GERD: No Genitourinary: Yes ([employer] BLADDER SURGERY) Headaches: Yes Hiatal Hernia: No Heparin Induced Thrombocytopen: No Hypertension: Yes Immune Disorder: No Implanted Vascular Access Dvce: No Kidney Stones: Yes (2006) Musculoskeletal: Yes Neurologic: Yes Psychiatric: Yes Reproductive: No Respiratory: Yes (Asthma) Immunizations Current: Yes Migraines: No Pneumonia: Yes Radiation Therapy: No Renal Failure: No Seizures: No Sickle Cell Disease: No Sleep Apnea: No Thyroid Disease: Yes ?: Not Menopausal: Yes Past Surgical History Abdominal Surgery: Yes (hysterectomy) AICD: No Arteriovenous Shunt: No Cardiac Surgery: No Ear Surgery: No Endocrine Surgery: Yes (parathyroid surgery) Eye Surgery: No Genitourinary Surgery: Yes (KIDNEY STONES REMOVED 2006) Gynecologic Surgery: Yes ( BLADDER LIFT) Hysterectomy: Yes Insulin Pump: No Joint Replacement: No Neurologic Surgery: No Oral Surgery: No Pacemaker: No Thoracic Surgery: No Other Surgery: Yes (PARATHYROID SURGERY, angioplasty right leg) Social History Alcohol Use: No Tobacco Use: No Substance Use: No Allergies-Medications (Allergen,Severity, Reaction): Coded Allergies: diatrizoate meglumine (Unverified Allergy, Unknown, Shortness of Breath, ) gadobenic acid (Unverified Allergy, Unknown, Shortness of Breath, 09/25/17) gadodiamide (Unverified Allergy, Unknown, Shortness of Breath, 09/25/17) gadoteridol (Unverified Allergy, Unknown, Shortness of Breath, 09/25/17) iodixanol (Unverified Allergy, Unknown, Shortness of Breath, 09/25/17) iohexol (Unverified Allergy, Unknown, Shortness of Breath, 09/25/17) Reported Meds & Prescriptions Reported Meds & Active Scripts Active Prednisone 20 Mg Tab 40 Mg PO DAILY Take 40 mg (2 tablets) daily for 3 days then 20mg po daily x 3 days then 10mg po daily x2 days then 5mg po daily x 4 days [Budeson-Formot 160-4.5 Mcg Inh] 60 PUFF Aero 2 Puff INH Q12HR Cozaar (Losartan Potassium) 50 Mg Tab 50 Mg PO DAILY Hydralazine HCl 25 Mg Tablet 25 Mg PO Q12HR Atorvastatin (Atorvastatin Calcium) 20 Mg Tab 20 Mg PO HS Nitrostat SL (Nitroglycerin) 0.4 Mg Subl 0.4 Mg SL Q5M PRN 30 Days Proventil Hfa 6.7 GM Inh (Albuterol Sulfate) 90 Mcg/Act Aer 1 Puff INH Q4H PRN Reported Lasix (Furosemide) 40 Mg Tab 40 Mg PO DAILY PRN Metolazone 2.5 Mg Tab 2.5 Mg PO DAILY Effexor (Venlafaxine HCl) 75 Mg Tab 75 Mg PO DAILY Albuterol Neb (Albuterol Sulfate) 1.25 Mg/3 Ml Neb 1.25 Mg NEB QID NEB PRN Review of Systems General / Constitutional: No: Fever Eyes: No: Visual changes HENT: No: Headaches Cardiovascular: No: Chest Pain or Discomfort Respiratory: Positive: Wheezing Gastrointestinal: No: Abdominal Pain Genitourinary: No: Dysuria Musculoskeletal: No: Pain Skin: No Rash Neurologic: No: Weakness Psychiatric: No: Depression Endocrine: No: Polydipsia Hematologic/Lymphatic: No: Easy Bruising Physical Exam Narrative GENERAL: SKIN: Warm and dry. HEAD: Atraumatic. Normocephalic. EYES: Pupils equal and round. No scleral icterus. No injection or drainage. ENT: No nasal bleeding or discharge. Mucous membranes pink and moist. NECK: Trachea midline. No JVD. CARDIOVASCULAR: Regular rate and rhythm. RESPIRATORY: No accessory muscle use. Wheezing bilaterally, decreased tidal volume GASTROINTESTINAL: Abdomen soft, non-tender, nondistended. MUSCULOSKELETAL: Extremities without clubbing, cyanosis, or edema. No obvious deformities. NEUROLOGICAL: Awake and alert. No obvious cranial nerve deficits. Motor grossly within normal limits. Five out of 5 muscle strength in the arms and legs. Normal speech. PSYCHIATRIC: Appropriate mood and affect; insight and judgment normal. Data Data Last Documented VS Vital Signs Date Time Temp Pulse Resp B/P (MAP) Pulse Ox O2 Delivery O2 Flow Rate FiO2 09/25/17 18:00 100 18 142/79 (100) 94 Room Air 09/25/17 15:41 98.0 Orders Orders Complete Blood Count With Diff (09/25/17 16:33) Comprehensive Metabolic Panel (09/25/17 16:33) B-Type Natriuretic Peptide (09/25/17 16:33) Act Partial Throm Time (Ptt) (09/25/17 16:33) Prothrombin Time / Inr (Pt) (09/25/17 16:33) Ckmb (Isoenzyme) Profile (09/25/17 16:33) Troponin I (09/25/17 16:33) Iv Access Insert/Monitor (09/25/17 16:33) Ecg Monitoring (09/25/17 16:33) Oximetry (09/25/17 16:33) Chest, Single Ap (09/25/17 16:33) Sodium Chloride 0.9% Flush (Ns Flush) (09/25/17 16:45) Methylprednisolone So Succ Inj (Solumedr (09/25/17 16:45) Albuterol Neb (Albuterol Neb) (09/25/17 16:45) Magnesium Sulfate 1 Gm Premix (Magnesium (09/25/17 16:45) Terbutaline Inj (Brethine Inj) (09/25/17 16:45) Lorazepam Inj (Ativan Inj) (09/25/17 16:45) Arterial Blood Gas (Abg) (09/25/17 16:42) CKMB (09/25/17 16:50) CKMB% (09/25/17 16:50) Ed Discharge Order (09/25/17 18:42) Labs Laboratory Tests Test 09/25/17 16:50 09/25/17 16:52 White Blood Count 12.7 TH/MM3 Red Blood Count 4.19 MIL/MM3 Hemoglobin 11.7 GM/DL Hematocrit 35.7 % Mean Corpuscular Volume 85.1 FL Mean Corpuscular Hemoglobin 27.9 PG Mean Corpuscular Hemoglobin Concent 32.8 % Red Cell Distribution Width 14.2 % Platelet Count 318 TH/MM3 Mean Platelet Volume 9.1 FL Neutrophils (%) (Auto) 90.5 % Lymphocytes (%) (Auto) 6.8 % Monocytes (%) (Auto) 1.8 % Eosinophils (%) (Auto) 0.5 % Basophils (%) (Auto) 0.4 % Neutrophils # (Auto) 11.4 TH/MM3 Lymphocytes # (Auto) 0.9 TH/MM3 Monocytes # (Auto) 0.2 TH/MM3 Eosinophils # (Auto) 0.1 TH/MM3 Basophils # (Auto) 0.1 TH/MM3 CBC Comment DIFF FINAL Differential Comment Prothrombin Time 9.6 SEC Prothromb Time International Ratio 0.9 RATIO Activated Partial Thromboplast Time 22.0 SEC Blood Urea Nitrogen 20 MG/DL Creatinine 0.81 MG/DL Random Glucose 141 MG/DL Total Protein 6.3 GM/DL Albumin 3.1 GM/DL Calcium Level 8.2 MG/DL Alkaline Phosphatase 73 U/L Aspartate Amino Transf (AST/SGOT) 16 U/L Alanine Aminotransferase (ALT/SGPT) 24 U/L Total Bilirubin 0.2 MG/DL Sodium Level 139 MEQ/L Potassium Level 4.7 MEQ/L Chloride Level 104 MEQ/L Carbon Dioxide Level 31.3 MEQ/L Anion Gap 4 MEQ/L Estimat Glomerular Filtration Rate 69 ML/MIN Total Creatine Kinase 407 U/L Creatine Kinase MB 1.3 NG/ML Creatine Kinase MB % 0.3 % Troponin I LESS THAN 0.02 NG/ML B-Type Natriuretic Peptide 121 PG/ML Blood Gas Puncture Site LT RADIAL Blood Gas Patient Temperature 98.6 Blood Gas HCO3 28 mmol/L Blood Gas Base Excess 3.7 mmol/L Blood Gas Oxygen Saturation 95 % Arterial Blood pH 7.43 Arterial Blood Partial Pressure CO2 42 mmHG Arterial Blood Partial Pressure O2 86 mmHG Arterial Blood Oxygen Content 14.7 Vol % Arterial Blood Carboxyhemoglobin 1.2 % Arterial Blood Methemoglobin 1.3 % Blood Gas Hemoglobin 11.0 G/DL Oxygen Delivery Device ROOM AIR Blood Gas Inspired Oxygen 21 % MDM Medical Decision Making Medical Screen Exam Complete: Yes Emergency Medical Condition: Yes Medical Record Reviewed: Yes Differential Diagnosis Pneumonia versus pleural effusion versus STEMI versus COPD exacerbation Narrative Course CBC shows a 12.7 leukocytosis with left shift 90% neutrophilia, no anemia, normal platelet count Coagulation profile is within normal limits Electrolytes are all within normal limits, normal kidney liver functions. First set of cardiac enzymes negative ABG on room air shows a pH of 7.43 PCO2 of 42 and a PaO2 of 86 consistent with mild COPD exacerbation without any evidence of hypercapnia or hypoxemia. Chest x-ray read by radiologist as stable bilateral chronic interstitial changes , no new or focal areas of parenchymal consolidation. Diagnosis Primary Impression: COPD flare Patient Instructions: COPD (Chronic Obstructive Pulmonary Disease) (ED), General Instructions Additional Instructions: Continue your prednisone, Symbicort, and your rescue inhalers. Please contact your medical educator for further adjustments or additions to your care. Disposition: 01 DISCHARGE HOME Condition: Stable Preet Bailey MD Sep 25, 2017 16:26
[2017-09-25 16:30] VITALS: RESP 16; O2SAT 95
[2017-09-25] MEDS ORDERED: FURO1TAB60 PO (16:38)
[2017-09-25] MEDS: RESP: ALBUTEROL 2.5 MG/3 ML NEB (SCH) INH ×2 (16:39→16:40)
[2017-09-25] MEDS ORDERED: MAGNESIUM SULFATE 1 GM PREMIX 100 ML IV ONE (16:45)
[2017-09-25] MEDS ORDERED: LORazepam 2 MG/ML VIAL IV PUSH ONE (16:45)
[2017-09-25] MEDS ORDERED: SODIUM CHLORIDE 0.9% FLUSH 10 ML FLUSH IVF PRN (16:45)
[2017-09-25] MEDS ORDERED: TERBUTALINE INJ 1 MG/ML AMP SQ ONE (16:45)
[2017-09-25] MEDS ORDERED: methylPREDNISolone SOD SUCC 125 MG/2 ML VIAL IV PUSH ONE (16:45)
[2017-09-25 17:00] VITALS: BP 134/66; PULSE 96; RESP 18; O2SAT 95
[2017-09-25 17:09] LABS: CHLORIDE 104 MEQ/L (98-107); SODIUM (NA) 139 MEQ/L (136-145)
[2017-09-25 17:12] LABS: ALBUMIN 3.1 GM/DL (3.4-5.0); BICARBONATE 31.3 MEQ/L (21.0-32.0); CALCIUM 8.2 MG/DL (8.5-10.1); GLUCOSE,RANDOM 141 MG/DL (74-106)
[2017-09-25 17:13] LABS: BLOOD UREA NITROGEN 20 MG/DL (7-18)
--- NOTE | 2017-09-25 17:13 | RADRPT ---
EXAM DATE: 09/25/2017 5:10 PM EDT AGE/SEX: 76 years / Female INDICATIONS: Shortness of breath. CLINICAL DATA: This is the patient's initial encounter. Patient reports that signs and symptoms have been present for 3 days and indicates a pain score of 0/10. MEDICAL/SURGICAL HISTORY: None. . Thyroid removed. COMPARISON: [facility], CHEST SINGLE AP, 09/16/2017. . FINDINGS: A single AP view of the chest demonstrates the lungs to be symmetrically aerated without evidence of mass, infiltrate or effusion. There continues to be stable chronic interstitial changes bilaterally. The cardiomediastinal contours are stable. Osseous structures are intact and stable. Stable surgic al clips at the base of the neck. No significant changes compared to the prior study. CONCLUSION: Stable bilateral chronic interstitial changes. No new or focal areas of parenchymal consolidation. Electronically signed by: Tramaine Enrique MD 09/25/2017 5:12 PM EDT
[2017-09-25 17:16] LABS: ALT (GPT) 24 U/L (10-53); AST (GOT) 16 U/L (15-37); CREATININE 0.81 MG/DL (0.50-1.00); GLOMERULAR FILTRATION RATE 69 ML/MIN (>89)
[2017-09-25 17:17] LABS: TOTAL BILIRUBIN ADULT 0.2 MG/DL (0.2-1.0); TOTAL PROTEIN 6.3 GM/DL (6.4-8.2)
[2017-09-25 17:18] LABS: ALKALINE PHOSPHATASE 73 U/L (45-117); INTERNATIONAL NORMALIZED RATIO 0.9 RATIO; PROTHROMBIN TIME - PATIENT 9.6 SEC (9.8-11.6)
[2017-09-25 17:20] LABS: TROPONIN I LESS THAN 0.02 NG/ML (0.02-0.05)
[2017-09-25 17:27] LABS: AUTOMATED NEUTROPHIL # 11.4 TH/MM3 (1.8-7.7); BASOPHIL # 0.1 TH/MM3 (0-0.2); BASOPHIL % 0.4 % (0.0-2.0); EOSINOPHIL # 0.1 TH/MM3 (0-0.4); EOSINOPHIL % 0.5 % (0.0-4.0); HEMATOCRIT 35.7 % (35.0-46.0); HEMOGLOBIN 11.7 GM/DL (11.6-15.3); LYMPH % 6.8 % (9.0-44.0); LYMPHOCYTE # 0.9 TH/MM3 (1.0-4.8); MEAN CELL VOLUME 85.1 FL (80.0-100.0); MEAN CORPUSCULAR HEMOGLOBIN 27.9 PG (27.0-34.0); MEAN CORPUSCULAR HGB CONC 32.8 % (32.0-36.0); MEAN PLATELET VOLUME 9.1 FL (7.0-11.0); MONO % 1.8 % (0.0-8.0); MONOCYTE # 0.2 TH/MM3 (0-0.9); NEUT % 90.5 % (16.0-70.0); PLATELET COUNT 318 TH/MM3 (150-450); RED BLOOD COUNT 4.19 MIL/MM3 (4.00-5.30); RED CELL DISTRIBUTION WIDTH 14.2 % (11.6-17.2); WHITE BLOOD COUNT 12.7 TH/MM3 (4.0-11.0)
[2017-09-25 18:00] VITALS: BP 142/79; PULSE 100; RESP 18; O2SAT 94
== END 2017-09-25 19:20 | disposition home or self-care (01) ==
LOC: PHED 15:32
DX: J44.1 Chronic obstructive pulmonary disease with (acute) exacerbation (principal); I48.91 Unspecified atrial fibrillation; E78.00 Pure hypercholesterolemia, unspecified; I10 Essential (primary) hypertension; M81.0 Age-related osteoporosis without current pathological fracture; E03.9 Hypothyroidism, unspecified; F41.9 Anxiety disorder, unspecified; Z79.82 Long term (current) use of aspirin
CPT/HCPCS: 36600; 71045; 80053; 82550; 82552; 82805; 83880; 84484; 85025; 85610; 85730; 94640; 94664; 96365; 96372; 96375; 99284; J2060; J2930; J3105; J3475; J7613